=== PATIENT | male | born 1940 | race American Indian/Alaskan Native ===

== ENCOUNTER 2016-12-19 13:18 | Observation (INO) | payer MEDICARE ==
--- NOTE | 2016-12-19 14:36 | ED PDOC ---
Arrival/HPI - General Chief Complaint: Upper Extremity Problem/Injury Time Seen by Provider: 12/19/16 14:16 Historian: Patient - History of Present Illness Narrative History of Present Illness (Text): 12/19/16 14:16 Francisco Javier Davidson is a 76 year old male, whose past medical history includes cardiac stents and sarcoidosis, who presents to the emergency department complaining of intermittent arm pain for two weeks. Patient also reports that he experiences shortness of breath which is chronic. Patient's daughter states that patient has been more short of breath over the past several weeks than typical. Patient denies any trauma or any other complaints at this time. PMD: Dr. Green Time/Duration: < month Symptom Onset: Gradual Symptom Course: Intermittent Severity Level: Mild Activities at Onset: Light Context: Home Past Medical History - Provider Review Nursing Documentation Reviewed: Yes - Cardiac Hx Cardiac Disorders: Yes Hx Hypertension: Yes Hx Pacemaker: No - Pulmonary Hx Respiratory Disorders: Yes (sarcoidosis) Hx Chronic Obstructive Pulmonary Disease (COPD): Yes - Neurological Hx Neurological Disorder: No Hx Paralysis: No - HEENT Hx HEENT Disorder: No - Renal Hx Renal Disorder: No - Endocrine/Metabolic Hx Endocrine Disorders: No - Hematological/Oncological Hx Blood Disorders: No Hx Blood Transfusions: No Hx Blood Transfusion Reaction: No - Integumentary Hx Dermatological Disorder: No - Musculoskeletal/Rheumatological Hx Musculoskeletal Disorders: No - Gastrointestinal Hx Gastrointestinal Disorders: No - Genitourinary/Gynecological Hx Genitourinary Disorders: No - Psychiatric Hx Psychophysiologic Disorder: No Hx Anxiety: No Hx Emotional Abuse: No Hx Physical Abuse: No Hx Substance Use: No - Surgical History Hx Cardiac Catheterization: Yes Hx Coronary Stent: Yes - Anesthesia Hx Anesthesia Reactions: No Hx Malignant Hyperthermia: No - Suicidal Assessment Feels Threatened In Home Enviroment: No Family/Social History - Physician Review Nursing Documentation Reviewed: Yes Family/Social History: No Known Family HX Smoking Status: Never Smoked Hx Alcohol Use: No Hx Substance Use: No Hx Substance Use Treatment: No Allergies/Home Meds Allergies/Adverse Reactions: Allergies No Known Allergies Allergy (Verified 12/19/16 13:30) Home Medications: Home Meds Medication Instructions Recorded Confirmed Aspirin [Aspir 81] 81 mg PO QAM 03/02/12 12/19/16 Metoprolol Tartrate [Lopressor] 25 mg PO BID 09/02/16 09/05/17 Simvastatin 20 mg PO QAM 12/17/15 12/19/16 Benzonatate [Tessalon Perles] 100 mg PO TID 12/19/16 12/19/16 Omeprazole [Omeprazole] 20 mg PO DAILY 12/19/16 12/19/16 Review of Systems - Physician Review All systems were reviewed & negative as marked: Yes - Review of Systems Constitutional: absent: Fevers, Night Sweats Eyes: absent: Vision Changes ENT: absent: Hearing Changes Respiratory: SOB Cardiovascular: absent: Chest Pain Gastrointestinal: absent: Abdominal Pain Genitourinary Male: absent: Dysuria, Frequency Musculoskeletal: Other (arm pain) Skin: absent: Rash, Pruritis Neurological: absent: Headache, Dizziness Endocrine: absent: Diaphoresis Hemo/Lymphatic: absent: Adenopathy Psychiatric: absent: Depression Physical Exam - Physical Exam Narrative Physical Exam (Text): Head: Atraumatic. Normocephalic. Eyes: PERRL. EOMI. Conjunctivae are not pale. ENT: Mucous membranes are moist and intact. Oropharynx is clear and symmetric. Neck: Supple. Full ROM. No JVD. No lymphadenopathy. Cardiovascular: Regular rate. Regular rhythm. Systolic murmur. Distal pulses are 2+ and symmetric. Pulmonary/Chest: Slight diminished breath sounds in Left lung, otherwise good breath sounds bilaterally, no accessory muscle usage. Abdominal: Soft and non-distended. There is no tenderness. No rebound, guarding, or rigidity. No organomegaly. Good bowel sounds. Back: No CVA tenderness. Extremities: No edema or erythema to left upper extremity. Neurovascular intact. Full range of motion in all extremities. No palpable elbow or wrist pain. Strong radial pulse. NV intact in upper extremity. No edema. No calf tenderness. Skin: Skin is warm and dry. No petechiae. No purpura. Neurological: Alert, awake, and oriented to person, place, time, and situation. Normal speech. Motor and sensory exam intact. Psychiatric: Good eye contact. Normal interaction, affect, and behavior. Vital Signs Reviewed: Yes Vital Signs Temp Pulse Resp BP Pulse Ox 12/19/16 17:42 63 145/90 12/19/16 13:35 97.5 F L 61 18 163/90 H 97 Blood Pressure: Hypertensive Pulse: Regular Respiratory Rate: Normal Appearance: Positive for: Well-Appearing, Non-Toxic, Comfortable Pain Distress: None Mental Status: Positive for: Alert and Oriented X 3 Medical Decision Making ED Course and Treatment: 12/19/16 14:16 Impression: 76 year old male complaining of intermittent arm pain for 2 weeks, also shortness of breath with exertion. Differential Diagnosis included but are not limited to: CAD vs. Sarcoidosis vs. Pneumonia vs. COPD Plan: -- EKG -- Chest X-ray -- Blood Culture -- Urine Cutlure and Urinalysis -- Labs -- Reassess and disposition Prior Visits: Notes and results from previous visits were reviewed. Patient last seen in the ED on 03/02/12 for multiple episodes of epistaxis that day. Patient was discharged home. Progress Notes: Patient's history is supplemented by family at bedside. The patient states he "has shortness of breath for some time". Family states that he has been coughing with shortness of breath for several days, noticeable with any exertion. He has prior history of CAD with cardiac stents. CXR ? hilar fullness, but no obvious CHF or infiltrate. Radiology interpretation reviewed. Initial EKG and card isos unremarkable. Patient currently is pain free, no focal neuro deficits. Patient's case discussed with Dr. Gipson, accepts patient to her service covering for Dr. Green. - Lab Interpretations Lab Results: 12/19/16 14:40 12/19/16 14:40 Lab Results 12/19/16 14:40: Sodium 140, Potassium 4.4, Chloride 99, Carbon Dioxide 30, Anion Gap 15, BUN 15, Creatinine 0.9, Est GFR ( Amer) > 60, Est GFR (Non- Af Amer) > 60, Random Glucose 87, Calcium 9.6, Total Bilirubin 0.8, AST 51, ALT 31, Alkaline Phosphatase 86, Lactate Dehydrogenase 557, Total Creatine Kinase 326 H, CK-MB (CK-2) 4.3 H, CK-MB (CK-2) % Cancelled, Troponin I < 0.01, NT-Pro- B Natriuret Pep 128, Total Protein 8.2, Albumin 4.3, Globulin 3.9, Albumin/ Globulin Ratio 1.1 12/19/16 14:40: PT 10.7, INR 0.99, APTT 34.3 H 12/19/16 14:40: WBC 5.2, RBC 4.63, Hgb 14.5, Hct 42.5, MCV 91.8, MCH 31.3, MCHC 34.1, RDW 12.5, Plt Count 184, MPV 9.8, Gran % 60.2, Lymph % (Auto) 28.9, [place] % (Auto) 7.1 H, Eos % (Auto) 3.6, Baso % (Auto) 0.2, Gran # 3.14, Lymph # 1.5, [place] # 0.4, Eos # 0.2, Baso # 0.01 I have reviewed the lab results: Yes - RAD Interpretation Radiology Orders: 12/19/16 14:31 CHEST PORTABLE [RAD] Stat - Medication Orders Current Medication Orders: Aspirin (Ecotrin) 81 mg PO QAM TIFF Atorvastatin Calcium (Lipitor) 10 mg PO DIN TIFF Metoprolol Tartrate (Lopressor) 25 mg PO BID TIFF Pantoprazole Sodium (Protonix Ec Tab) 20 mg PO ACB TIFF Discontinued Medications Albuterol/Ipratropium (Duoneb 3 Mg/0.5 Mg (3 Ml) Ud) 3 ml IH STAT STA Stop: 12/19/16 16:53 Last Admin: 12/19/16 17:43 Dose: 3 ml Aspirin (Aspirin Chewable) 81 mg PO STAT STA Stop: 12/19/16 16:50 Last Admin: 12/19/16 17:43 Dose: 81 mg Metoprolol Tartrate (Lopressor) 25 mg PO STAT STA Stop: 12/19/16 17:01 Last Admin: 12/19/16 17:42 Dose: 25 mg - Scribe Statement The provider has reviewed the documentation as recorded by the Razia Walsh Provider Scribe Attestation: All medical record entries made by the Beckieibsuraj were at my direction and personally dictated by me. I have reviewed the chart and agree that the record accurately reflects my personal performance of the history, physical exam, medical decision making, and the department course for this patient. I have also personally directed, reviewed, and agree with the discharge instructions and disposition. Disposition/Present on Arrival - Present on Arrival Any Indicators Present on Arrival: No History of DVT/PE: No History of Uncontrolled Diabetes: No Urinary Catheter: No History of Decub. Ulcer: No History Surgical Site Infection Following: None - Disposition Have Diagnosis and Disposition been Completed?: Yes Diagnosis: Chest pain, Dyspnea Disposition: HOSPITALIZED Disposition Time: 15:20 Patient Plan: Admission, Telemetry Condition: FAIR
[2016-12-19 15:05] LABS: BASO # 0.01 K/mm3 (0.0-2.0); BASO % 0.2 % (0.0-3.0); EOS # 0.2 (0.0-0.7); EOS % 3.6 % (1.5-5.0); GRAN # 3.14 (1.4-6.5); GRAN % 60.2 % (50.0-68.0); HEMATOCRIT 42.5 % (42.0-52.0); LYMPH # 1.5 (1.2-3.4); LYMPH % 28.9 % (22.0-35.0); MEAN CELL VOLUME 91.8 fl (80.0-105.0); MEAN CORPUSCULAR HEMOGLOBIN 31.3 pg (25.0-35.0); MEAN CORPUSCULAR HGB CONC 34.1 g/dl (31.0-37.0); MEAN PLATELET VOLUME 9.8 fl (7.0-11.0); MONO # 0.4 (0.1-0.6); MONO % 7.1 % (1.0-6.0); RED CELL DISTRIBUTION WIDTH 12.5 % (11.5-14.5); WHITE BLOOD COUNT 5.2 10^3/ul (4.5-11.0)
[2016-12-19 15:18] LABS: INR 0.99 (0.93-1.08); PARTIAL THROMBOPLASTIN TIME 34.3 Seconds (23.7-30.8)
[2016-12-19 15:21] LABS: ALB/GLOB RATIO 1.1 (1.1-1.8); ALKALINE PHOSPHATASE 86 U/L (38-126); ALT/SGPT 31 U/L (7-56); AST/SGOT 51 U/L (17-59); BILIRUBIN,TOTAL 0.8 mg/dL (0.2-1.3); BLOOD UREA NITROGEN 15 mg/dL (7-21); CALCIUM 9.6 mg/dL (8.4-10.5); CARBON DIOXIDE 30 mmol/L (21-33); CHLORIDE 99 mmol/L (98-107); GFR AFRICAN-AMERICAN > 60; GLUCOSE,RANDOM 87 mg/dL (70-110); POTASSIUM 4.4 mmol/L (3.6-5.0); SODIUM 140 mmol/L (132-148); TOTAL PROTEIN 8.2 g/dL (5.8-8.3)
--- NOTE | 2016-12-19 15:30 | RAD ---
HISTORY: sob COMPARISON: No prior. FINDINGS: LUNGS: No active pulmonary disease. There is eventration of the diaphragms bilaterally PLEURA: No significant pleural effusion identified, no pneumothorax apparent. CARDIOVASCULAR: Normal. OSSEOUS STRUCTURES: No significant abnormalities. VISUALIZED UPPER ABDOMEN: Normal. OTHER FINDINGS: None. IMPRESSION: No active disease.
[2016-12-19 15:34] LABS: TROPONIN I < 0.01 ng/mL
[2016-12-19] MEDS ORDERED: Albuterol-Ipratrop 3 mg / 0.5 (3 ml) UD IH STA (16:52)
[2016-12-19 20:55] VITALS: BMI 28.3
--- NOTE | 2016-12-19 23:14 | CARD ---
APPROVED REPORT EKG Measurement Heart [id number] <Conclusion> Sinus rhythm with premature atrial complexes Otherwise normal ECG
--- NOTE | 2016-12-20 03:06 | CP.PCM.CON ---
<LuanaCharli - Last Filed: 12/20/16 03:10> History of Present Illness - History of Present Illness History of Present Illness: Neurology Consult Note for Dr. Mayorga Service Consulted for: Left arm numbness/tingling HPI: This is a 76 yo AA M with PMH of CAD s/p stenting, HTN, COPD, and Sarcoidosis who presents to [facility] with complaint of 2 weeks of intermittent L arm pain/numbness and intermittent dizziness. As per pt, he had numbness in the Left arm which self-resolved prior to admission. Pt admits to leaning on the posterior portion of his L arm regularly when watching TV. Describes the numbness/tingling as passing from upper forearm, along posterior elbow, and into dorsum of hand. Currently retains full ROM in all extremities, including affect LUE. Denies room spinning, chest pain, shortness of breath, other paresthesias, nausea/emesis, fevers/chills, acute vision changes. All other ROS in 12-point system review negative. PMH: As above PSH: Cardiac cath with stenting SHx: denies alcohol/tobacco/illicits PMD: Dr. Gipson Review of Systems - Review of Systems All systems: reviewed and no additional remarkable complaints except (as per HPI ) Past Patient History - Past Social History Smoking Status: Former Smoker - CARDIAC Hx Cardiac Disorders: Yes Hx Hypertension: Yes - PULMONARY Hx Respiratory Disorders: Yes (sarcoidosis) Hx Chronic Obstructive Pulmonary Disease (COPD): Yes - NEUROLOGICAL Hx Neurological Disorder: No - HEENT Hx HEENT Problems: No - RENAL Hx Chronic Kidney Disease: No - ENDOCRINE/METABOLIC Hx Endocrine Disorders: No - HEMATOLOGICAL/ONCOLOGICAL Hx Blood Disorders: No - INTEGUMENTARY Hx Dermatological Problems: No - MUSCULOSKELETAL/RHEUMATOLOGICAL Hx Musculoskeletal Disorders: No Hx Falls: No - GASTROINTESTINAL Hx Gastrointestinal Disorders: No - GENITOURINARY/GYNECOLOGICAL Hx Genitourinary Disorders: No - PSYCHIATRIC Hx Psychophysiologic Disorder: No Hx Substance Use: No - SURGICAL HISTORY Hx Surgeries: Yes (cardiac cath 1996, 2006) Hx Cardiac Catheterization: Yes (1996, 2006) Hx Coronary Stent: Yes - ANESTHESIA Hx Anesthesia Reactions: No Hx Malignant Hyperthermia: No Meds Allergies/Adverse Reactions: Allergies Allergy/AdvReac Type Severity Reaction Status Date / Time No Known Allergies Allergy Verified 12/19/16 13:30 - Medications Medications: Current Medications Aspirin (Ecotrin) 81 mg PO QAM TIFF Atorvastatin Calcium (Lipitor) 10 mg PO DIN [facility] Metoprolol Tartrate (Lopressor) 25 mg PO BID [facility] Last Admin: 12/19/16 19:43 Dose: 25 mg Pantoprazole Sodium (Protonix Ec Tab) 20 mg PO ACB [facility] Physical Exam - Constitutional Appears: Non-toxic, No Acute Distress - Head Exam Head Exam: ATRAUMATIC, NORMAL INSPECTION, NORMOCEPHALIC - Eye Exam Eye Exam: Normal appearance. absent: Conjunctival injection, Scleral icterus Pupil Exam: absent: Irregular, Unequal Additional comments: no dizziness elicited from tracking staff within room in ED - ENT Exam ENT Exam: Mucous Membranes Moist - Neck Exam Neck exam: Positive for: Full Rom - Respiratory Exam Respiratory Exam: Clear to Auscultation Bilateral, NORMAL BREATHING PATTERN. absent: Accessory Muscle Use, Chest Wall Tenderness, Decreased Breath Sounds, Rales, Rhonchi, Wheezes - Cardiovascular Exam Cardiovascular Exam: REGULAR RHYTHM, RRR, +S1, +S2. absent: Bradycardia, Tachycardia, Irregular Rhythm, JVD, +S4 - GI/Abdominal Exam GI & Abdominal Exam: Normal Bowel Sounds, Soft. absent: Diminished Bowel Sounds , Hyperactive Bowel Sounds, Hypoactive Bowel Sounds, Tenderness - Extremities Exam Extremities exam: Positive for: normal inspection. Negative for: pedal edema Additional comments: moving all extremities spontaneously, motor grossly intact - Neurological Exam Additional comments: awake and alert, following all commands, moving all extremities spontaneously - Psychiatric Exam Psychiatric exam: Normal Affect, Normal Mood - Skin Skin Exam: Dry, Intact, Normal Color, Warm Results - Vital Signs Recent Vital Signs: Last Vital Signs Temp 98.2 F 12/20/16 00:00 Pulse 55 L 12/20/16 00:00 Resp 20 12/20/16 00:00 BP 139/84 12/20/16 00:00 Pulse Ox 98 12/20/16 00:00 - Labs Result Diagrams: 12/19/16 14:40 12/19/16 14:40 Assessment & Plan - Assessment and Plan (Free Text) Assessment: This is a 76 yo AA M with PMH of CAD s/p stenting, HTN, COPD, and Sarcoidosis who presents to [facility] with complaint of 2 weeks of intermittent L arm pain/ numbness x2 weeks. 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 Despite the compression neuropathy , he motor and sensory function are grossly intact in his LUE and generally. Elbow site is not acutely tender on exam, so unlikely epicondylitis. May be component of HTN urgency behind dizziness as patient's BP since arrival has increased to systolic 160's. Plan: 1) Avoid resting on posterior elbow, especially on hard surface; avoid any direct compression of ulnar nerve pathway along posterior arm 2) Continue medical management of HTN, avoid abrupt decreases in BP to prevent watershed infarcts 3) PT/OT for L-arm Patient seen, reviewed, and discussed with attending, Dr. Mayorga. Please reconsult if patient experiences acute change in condition. <Carlos Eduardo Mayorga - Last Filed: 12/20/16 10:21> Meds - Medications Medications: Current Medications Aspirin (Ecotrin) 81 mg PO QAM [facility] Last Admin: 12/20/16 09:07 Dose: 81 mg Atorvastatin Calcium (Lipitor) 10 mg PO DIN TIFF Metoprolol Tartrate (Lopressor) 25 mg PO BID [facility] Last Admin: 12/20/16 09:07 Dose: 25 mg Pantoprazole Sodium (Protonix Ec Tab) 20 mg PO ACB [facility] Last Admin: 12/20/16 08:02 Dose: 20 mg Results - Vital Signs Recent Vital Signs: Last Vital Signs Temp 97.7 F 12/20/16 08:09 Pulse 62 12/20/16 09:07 Resp 20 12/20/16 08:09 BP 141/81 12/20/16 09:07 Pulse Ox 96 12/20/16 08:09 - Labs Result Diagrams: 12/20/16 05:20 12/20/16 05:20 Labs: Laboratory Results - last 24 hr 12/20/16 12/20/16 12/20/16 05:20 05:20 10:00 WBC 4.7 RBC 4.46 Hgb 13.8 L Hct 40.9 L MCV 91.7 MCH 30.9 MCHC 33.7 RDW 12.7 Plt Count 170 MPV 9.3 Gran % 57.8 Lymph % (Auto) 26.8 [place] % (Auto) 9.9 H Eos % (Auto) 5.1 H Baso % (Auto) 0.4 Gran # 2.74 Lymph # 1.3 [place] # 0.5 Eos # 0.2 Baso # 0.02 Sodium 139 Potassium 4.1 Chloride 101 Carbon Dioxide 29 Anion Gap 13 BUN 16 Creatinine 0.9 Est GFR ( Amer) > 60 Est GFR (Non-Af Amer) > 60 Random Glucose 102 Calcium 9.0 Lactate Dehydrogenase 446 Total Creatine Kinase 269 H CK-MB (CK-2) 2.9 CK-MB (CK-2) % Cancelled Troponin I < 0.01 Urine Color Yellow Urine Appearance Clear Urine pH 6.0 Ur Specific [place] 1.010 Urine Protein Negative Urine Glucose (UA) Negative Urine Ketones Negative Urine Blood Negative Urine Nitrate Negative Urine Bilirubin Negative Urine Urobilinogen 0.2 Ur Leukocyte Esterase Negative Attending/Attestation - Attestation I have personally seen and examined this patient.: Yes I have fully participated in the care of the patient.: Yes I have reviewed all pertinent clinical information: Yes Notes (Text): 12/20/16 10:21 REFLEXES WERE NORMAL ON NEURO EXAM. WILL SEE IN OFFICE FOR AN EMG. LILIAN BROWN
--- NOTE | 2016-12-20 03:16 | HP ---
DATE OF EVALUATION: 12/19/2016 HISTORY OF PRESENT ILLNESS: Mr. Davidson is a 76-year-old male presented to ED with left arm tingling and pain for a past few days. He also has heaviness on the chest. No shortness of breath. The tingling resolved while in ED. No weakness on the left side of the body. He has history of coronary artery disease. He has cardiac stents placed twice. He also has history of sarcoidosis. He has history of hypertension. Blood pressure has been stable. Sarcoidosis, no active issues, COPD, no exacerbation recent. PAST MEDICAL HISTORY: Cardiac stent and cardiac catheterization. SOCIAL HISTORY: Lives at home. PERSONAL HISTORY: Never smoked. No history of alcohol abuse. ALLERGIES: NO KNOWN DRUG ALLERGIES. HOME MEDICATIONS: Aspirin 81 mg daily, metoprolol 25 mg by mouth two times a day, Lipitor 20 mg daily, and omeprazole 20 mg daily. REVIEW OF SYSTEMS: As per HPI. A 12-point review of systems reviewed and negative. PHYSICAL EXAMINATION GENERAL: Comfortable in bed, in no acute distress. VITAL SIGNS: Temperature 97.5, heart rate 60 per minute, respiratory rate 18 per minute, blood pressure 160/90, pulse oximetry is 97% on room air. HEENT: Normal. NECK: Supple. No lymphadenopathy. CHEST: Air entry present equal bilaterally. No added sounds. CARDIOVASCULAR: S1 and S2 normal. No murmur or gallop. ABDOMEN: Soft and nontender. No hepatosplenomegaly. EXTREMITIES: No edema. NEUROLOGIC: Alert and oriented x3. Cranial nerves intact. Spine nontender. No focal sensitivity motor deficit. LABORATORY DATA: White count 5.2, hemoglobin 14.5, hematocrit 42.5, platelet 184. Sodium 140, potassium 4.4, BUN 15, and creatinine 0.9. Cardiac enzyme creatine kinase 326. INR is 0.99. Troponin negative 0.01. Chest x-ray, no infiltrate. EKG, no ST-T changes. ASSESSMENT: Coronary artery disease, left arm pain, left arm tingling. No history of sarcoidosis, chronic obstructive pulmonary disease, mild coagulopathy, elevated PTT 34.3. PLAN: Admit telemetry and we will do serial cardiac enzyme. Cardiac consultation with Dr. Maloney requested. He might need a cardiac stress test. We will continue beta-d[place] 25 mg by mouth two times a day, metoprolol. Continue Lipitor 10 mg daily, aspirin 81 mg daily, Protonix 20 mg by mouth daily. Urology consultation Dr. Mayorga requested for tingling on the left arm, unlikely stroke might be cervical. Heart healthy diet. Urine culture and blood culture ordered. Sarah Gipson MD
[2016-12-20 06:16] LABS: BASO # 0.02 K/mm3 (0.0-2.0); BASO % 0.4 % (0.0-3.0); EOS # 0.2 (0.0-0.7); EOS % 5.1 % (1.5-5.0); GRAN # 2.74 (1.4-6.5); GRAN % 57.8 % (50.0-68.0); HEMATOCRIT 40.9 % (42.0-52.0); LYMPH # 1.3 (1.2-3.4); LYMPH % 26.8 % (22.0-35.0); MEAN CELL VOLUME 91.7 fl (80.0-105.0); MEAN CORPUSCULAR HEMOGLOBIN 30.9 pg (25.0-35.0); MEAN CORPUSCULAR HGB CONC 33.7 g/dl (31.0-37.0); MEAN PLATELET VOLUME 9.3 fl (7.0-11.0); MONO # 0.5 (0.1-0.6); MONO % 9.9 % (1.0-6.0); RED CELL DISTRIBUTION WIDTH 12.7 % (11.5-14.5); WHITE BLOOD COUNT 4.7 10^3/ul (4.5-11.0)
[2016-12-20 06:31] LABS: BLOOD UREA NITROGEN 16 mg/dL (7-21); CARBON DIOXIDE 29 mmol/L (21-33); CHLORIDE 101 mmol/L (98-107); GFR AFRICAN-AMERICAN > 60; GLUCOSE,RANDOM 102 mg/dL (70-110); POTASSIUM 4.1 mmol/L (3.6-5.0); SODIUM 139 mmol/L (132-148)
[2016-12-20 06:58] LABS: TROPONIN I < 0.01 ng/mL
[2016-12-20] MEDS ORDERED: Pantoprazole 20 mg EC Tab PO SCH (07:30)
[2016-12-20 10:12] LABS: URINE BILIRUBIN NEGATIVE (NEGATIVE); URINE BLOOD NEGATIVE (NEGATIVE); URINE GLUCOSE (UA) NEGATIVE (NEGATIVE); URINE KETONE NEGATIVE (NEGATIVE); URINE LEUKOCYTE ESTERASE NEGATIVE Leu/uL (NEGATIVE); URINE PROTEIN NEGATIVE mg/dL (<30 mg/dL); URINE UROBILINOGEN 0.2 E.U./dL (<1 E.U./dL)
[2016-12-20 10:15] LABS: URINE APPEARANCE CLEAR (CLEAR); URINE COLOR YELLOW (YELLOW)
--- NOTE | 2016-12-20 14:33 | CON ---
DATE: 12/20/2016 HISTORY OF PRESENT ILLNESS: The patient is a 76-year-old male who presents with left arm numbness and exertional dyspnea. The patient's past medical history includes hypertension. He has had sarcoidosis for many years and has been relatively stable. He also suffers from COPD. His cardiac history includes three angioplasties over the past 20 years. His last one was 3 years ago at [facility]. He denies angina. No diabetes mellitus noted. SOCIAL HISTORY: The patient does not smoke. REVIEW OF SYSTEMS: A 14-point review of systems is reviewed in detail. No other cardiac symptomatology is noted. PHYSICAL EXAMINATION VITAL SIGNS: Blood pressure is 141/81 and the heart rate is in the 50s. NECK: Negative JVD. LUNGS: Without rales. HEART: Reveals S1 and S2. EXTREMITIES: Without edema. LABORATORY DATA: Include an EKG that shows no acute changes. Troponins are negative. IMPRESSION 1. Atypical chest discomfort. 2. No evidence for acute coronary syndrome. 3. History of coronary artery disease. 4. History of multiple percutaneous transluminal coronary angioplasties in the past. 5. History of sarcoidosis. 6. Hypertension. PLAN: Given these findings, the patient can be discharged from a cardiac perspective. However, given his history of multivessel CAD, the patient should undergo an outpatient stress test which I will arrange for and which the patient is agreeable. From a cardiac perspective, the patient can be discharged. Epi Maloney MD
[2016-12-20 16:15] VITALS: BP 147/88; PULSE 66; RESP 22; TEMP 98.2; O2SAT 99
--- NOTE | 2016-12-20 23:47 | DS ---
DATE OF DISCHARGE: 12/20/2016 DISCHARGE DIAGNOSES: 1. Left arm pain. 2. Coronary artery disease. 3. Sarcoidosis. HOSPITAL COURSE: The patient was admitted with left-sided chest pain and tingling in the left arm. He was monitored on telemonitoring for 24 hours. Cardiac enzymes were negative [address] Maloney evaluated. Cardiac stress test is scheduled for this week. Neurology evaluated for tingling on the left arm. He is being discharged in stable condition. PHYSICAL EXAMINATION ON DISCHARGE: GENERAL: Comfortable in bed, in no acute distress. VITAL SIGNS: Temperature 98.7, heart rate 70 per minute, respiratory rate 18 per minute, and oxygen saturation 98% on room air. HEENT: Normal. CHEST: Air entry present equal. Bilaterally no added sound. CARDIOVASCULAR: Within normal limits. ABDOMEN: Soft and nontender. No hepatosplenomegaly. SKIN: No petechiae. No rash. CONDITION: On discharge, stable. DIET: Heart healthy diet. Followup with Dr. Maloney. Followup with Dr. Baldwin. DISCHARGE MEDICATIONS: Continue home meds. Lipitor 10 mg daily, metoprolol 25 mg p.o. b.i.d., Protonix 20 mg daily, and aspirin 81 mg daily. Time spent in preparing discharge and coordinating care 45 minutes. Sarah Gipson MD
== END 2016-12-20 19:35 | disposition home or self-care (01) ==
LOC: ED 13:18 → ERH 18:04 → 3RNO 19:03
PROVIDERS: ADMIT Internal Medicine Medical Oncology; ATTEND Internal Medicine Medical Oncology
DX: R07.89 Other chest pain (principal); M79.602 Pain in left arm; I25.10 Atherosclerotic heart disease of native coronary artery without angina pectoris; D86.9 Sarcoidosis, unspecified; G58.9 Mononeuropathy, unspecified; I10 Essential (primary) hypertension; J44.9 Chronic obstructive pulmonary disease, unspecified; Z79.82 Long term (current) use of aspirin; Z79.899 Other long term (current) drug therapy; Z87.891 Personal history of nicotine dependence; Z95.5 Presence of coronary angioplasty implant and graft; D68.9 Coagulation defect, unspecified
CPT/HCPCS: 36415; 71010; 80048; 80053; 81003; 82550; 82553; 83615; 83880; 84484; 85025; 85610; 85730; 87040; 87086; 93005; 99285; G0378

== ENCOUNTER 2016-12-29 06:09 | Day surgery (SDC) | payer MEDICARE ==
[2016-12-26 11:13] VITALS: BMI 27.4
[2016-12-29 07:07] LABS: BASO # 0.02 K/mm3 (0.0-2.0); BASO % 0.3 % (0.0-3.0); EOS # 0.2 (0.0-0.7); EOS % 3.7 % (1.5-5.0); GRAN # 3.42 (1.4-6.5); GRAN % 57.9 % (50.0-68.0); HEMATOCRIT 41.5 % (42.0-52.0); LYMPH # 1.8 (1.2-3.4); LYMPH % 29.6 % (22.0-35.0); MEAN CORPUSCULAR HEMOGLOBIN 30.9 pg (25.0-35.0); MEAN PLATELET VOLUME 9.8 fl (7.0-11.0); MONO # 0.5 (0.1-0.6); MONO % 8.5 % (1.0-6.0); RED CELL DISTRIBUTION WIDTH 12.3 % (11.5-14.5); WHITE BLOOD COUNT 5.9 10^3/ul (4.5-11.0)
[2016-12-29 07:18] LABS: BLOOD UREA NITROGEN 16 mg/dL (7-21); CALCIUM 9.4 mg/dL (8.4-10.5); CARBON DIOXIDE 32 mmol/L (21-33); CHLORIDE 103 mmol/L (98-107); CHOLESTEROL 144 mg/dL (130-200); GFR AFRICAN-AMERICAN > 60; GLUCOSE,RANDOM 97 mg/dL (70-110); PARTIAL THROMBOPLASTIN TIME 32.9 Seconds (23.7-30.8); SODIUM 143 mmol/L (132-148)
[2016-12-29] MEDS ORDERED: Lidocaine 2% Inj (20ml) ONE (08:30)
[2016-12-29] MEDS ORDERED: Phenylephrine 10 mg/ml Inj ONE (08:31)
[2016-12-29] MEDS ORDERED: Iohexol 350mgl/ml 50 ML ONE (08:31)
[2016-12-29] MEDS ORDERED: Iohexol 350 MG/100 ML VIAL ONE (08:31)
[2016-12-29] MEDS ORDERED: Midazolam 2 MG/2 ML VIAL ONE ×2 (08:42→09:03)
[2016-12-29] MEDS ORDERED: Adenosine 90 mg/30mL IV ONE (09:13)
[2016-12-29] MEDS ORDERED: Eptifibatide 20 mg/10mL Inj IVP ONE (09:36)
[2016-12-29] MEDS ORDERED: Sodium Chloride 0.9% 1,000 ML IV SCH (10:00)
[2016-12-29] MEDS: Metoprolol Succinate 25 mg XL Tab PO SCH (12:52)
--- NOTE | 2016-12-29 16:26 | CARD ---
APPROVED REPORT EKG Measurement Heart [id number] <Conclusion> Marked sinus bradycardia
--- NOTE | 2016-12-30 02:12 | HP ---
HISTORY OF PRESENT ILLNESS: The patient is a 76 years old black male known to me from office practice. He was having chest pain, so he went to see Dr. Maloney who did stress test on 12/22/2016 that was found to be abnormal, so he was brought to [facility] for elective cardiac catheterization and being placed on observation overnight. The patient is also having intermittent chest pain, going on for sometime, so he went to see Dr. Maloney who did the above-mentioned workup. PAST MEDICAL HISTORY: He has significant past medical history of hypertension, history of sarcoidosis. ALLERGIES: HE IS NOT ALLERGIC TO ANY MEDICATION. MEDICATIONS AT HOME: He is on aspirin 81 mg daily, simvastatin 20 mg daily, omeprazole 20 mg daily, metoprolol 25 twice a day, Plavix 75 daily. SOCIAL HISTORY: He was a heavy past smoker. He still socially drinks. Lives with his . REVIEW OF SYSTEMS: Unremarkable at this point. PHYSICAL EXAMINATION: GENERAL: He is awake and alert, communicative. VITAL SIGNS: He is afebrile. Pulse 51, respirations 18, blood pressure 160/87. LUNGS: Bilateral fair airflow. No rhonchi or crackles. HEART: S1, S2 audible. ABDOMEN: Soft, nontender. No rebound, no guarding. NEUROLOGIC: The patient is awake and alert, able to communicate. LABORATORY EXAM: WBCs 5.9, hemoglobin 14, hematocrit 41.5, platelets 190. PT 10.8, INR 1.0. Chemistry: Sodium 143, potassium 4.0, chloride 103, CO2 of 32, BUN 16, creatinine 1.0, blood sugar of 97. LFTs are within normal limits. ASSESSMENT AND PLAN: 1. Abnormal stress test, status post cardiac catheterization. Had right coronary artery angioplasty done. 2. Hypertension. 3. Hyperlipidemia. 4. History of sarcoidosis. Plan is add metoprolol and soon start him on losartan. Monitor his blood pressure as well as CBC and CMP. Eddie Green MD
[2016-12-30 07:06] VITALS: O2SAT 97
[2016-12-30] MEDS ORDERED: Naproxen 550 mg Tab PO ONE (07:08)
[2016-12-30 07:17] LABS: BLOOD UREA NITROGEN 15 mg/dL (7-21); CALCIUM 8.9 mg/dL (8.4-10.5); CARBON DIOXIDE 28 mmol/L (21-33); CHLORIDE 102 mmol/L (98-107); GFR AFRICAN-AMERICAN > 60; GLUCOSE,RANDOM 90 mg/dL (70-110); POTASSIUM 3.9 mmol/L (3.6-5.0); SODIUM 139 mmol/L (132-148)
[2016-12-30] MEDS: Metoprolol Succinate 25 mg XL Tab PO SCH (08:10)
[2016-12-30 08:13] LABS: BASO # 0.02 K/mm3 (0.0-2.0); BASO % 0.3 % (0.0-3.0); EOS # 0.2 (0.0-0.7); GRAN # 3.66 (1.4-6.5); GRAN % 63.9 % (50.0-68.0); HEMATOCRIT 39.7 % (42.0-52.0); LYMPH # 1.2 (1.2-3.4); LYMPH % 20.8 % (22.0-35.0); MEAN CELL VOLUME 90.6 fl (80.0-105.0); MEAN CORPUSCULAR HEMOGLOBIN 30.1 pg (25.0-35.0); MEAN CORPUSCULAR HGB CONC 33.2 g/dl (31.0-37.0); MEAN PLATELET VOLUME 9.8 fl (7.0-11.0); MONO # 0.7 (0.1-0.6); RED CELL DISTRIBUTION WIDTH 12.3 % (11.5-14.5); WHITE BLOOD COUNT 5.7 10^3/ul (4.5-11.0)
--- NOTE | 2016-12-30 10:57 | PN ---
DATE: 12/30/2016 CARDIOLOGY FOLLOWUP SUBJECTIVE: The patient is chest pain free. He is ambulating without symptoms. He had transient numbness in the right forearm which has now resolved. OBJECTIVE: VITAL SIGNS: Blood pressure 143/91, heart rate in the 60s. NECK: Negative JVD. LUNGS: Without rales. HEART: S1, S2. EXTREMITIES: Without edema. The right groin site is stable. LABORATORY DATA: Hemoglobin is 13.2. Chemistries are within normal limits. EKG shows no changes. IMPRESSION: 1. Status post percutaneous transluminal coronary angioplasty and stent of the right coronary artery. 2. Coronary artery disease. 3. Hypercholesterolemia. 4. History of multi vessel percutaneous transluminal coronary angioplasty in the past. Given these findings, the patient is stable for discharge. The patient will need to be on Effient instead of Plavix given the PRU results, which revealed the patient is a non-responder to Plavix. Prescription has been given to the patient's family. Epi Maloney MD
[2016-12-30 11:08] VITALS: BP 139/90
[2016-12-30 12:12] VITALS: PULSE 67; RESP 16; TEMP 97
--- NOTE | 2016-12-30 13:15 | CARD ---
APPROVED REPORT EKG Measurement Heart [id number] <Conclusion> Sinus bradycardia Otherwise normal ECG
--- NOTE | 2016-12-30 13:15 | CT ---
PROCEDURE: CT HEAD WITHOUT CONTRAST. 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 TECHNIQUE: Axial computed tomography images were obtained through the head/brain without intravenous contrast. Radiation dose: Total exam DLP = 725.84 mGy-cm. This CT exam was performed using one or more of the following dose reduction techniques: Automated exposure control, adjustment of the mA and/or kV according to patient size, and/or use of iterative reconstruction technique. FINDINGS: HEMORRHAGE: No acute parenchymal, subarachnoid or extra-axial hemorrhage. Hemorrhage. BRAIN: There appears to be some very minor chronic periventricular white matter ischemic changes. Minor vascular calcifications both carotid siphons Mild generalized volume loss. VENTRICLES: No obstructive hydrocephalus CALVARIUM: There are no acute calvarial fractures PARANASAL SINUSES: Unremarkable as visualized. No significant inflammatory changes. MASTOID AIR CELLS: Unremarkable as visualized. No inflammatory changes. OTHER FINDINGS: None. IMPRESSION: No acute intracranial hemorrhage. Mild chronic white matter ischemic changes. Mild generalized volume loss.
--- NOTE | 2016-12-31 09:14 | DS ---
HISTORY OF PRESENT ILLNESS: The patient is a 76-year-old seen and examined. I got call earlier this morning that he is having right arm tingling sensation, probably he slept wrong overnight. Seems like cervical radiculopathy. He was given Naprosyn with heating treatment with significant improvement. However, he had CT scan of the brain done to rule out TIA during evaluation to be discharged. PHYSICAL EXAMINATION: VITAL SIGNS: He is afebrile. Pulse 65, respirations 16, blood pressure 130/90. LUNGS: Bilateral fair airflow. No rhonchi or crackle. HEART: S1 and S2, audible. ABDOMEN: Soft and nontender. No rebound, no guarding. NEUROLOGIC: The patient is awake, alert, able to communicate, ambulatory. LABORATORY DATA: WBC was 5.7, hemoglobin 13, hematocrit 39.7, platelet 172. PT 10.8, INR 1.0. Chemistry; sodium 139, potassium 3.9, chloride 102, CO2 of 28, BUN 15, creatinine of 0.9, blood sugar of 90. ASSESSMENT: 1. Abnormal stress test. 2. Status post RCA angioplasty. 3. Hyperthyroidism. 4. Hypertension. PLAN: The patient is being discharged to home on metoprolol. He was given prescription of Effient and simvastatin 20 mg daily, aspirin 81 daily. The patient will follow with Dr. Maloney and myself in a week or 2. Eddie Green MD
--- NOTE | 2017-01-09 16:31 | CARDCATH ---
PROCEDURE DATE: 12/29/2016 HISTORY: The patient is a 76-year-old male who presents with an abnormal stress test. The patient's past medical history includes recurrent admissions for atypical chest pain as well as dyspnea. He has had multiple PTCA and stent at [facility] in the past. He has multiple cardiac risk factors and also suffers from sarcoidosis. Because of this, cardiac catheterization was recommended. PROCEDURE: Left heart catheterization with coronary arteriography, left ventriculogram as well as PTCA and stent of an RCA. The right femoral artery was cannulated with 6-Danish sheath. There were no complications. FINDINGS ON CATHETERIZATION: Revealed left main artery that revealed a 40% to 50% stenosis in the distal portion of the left main artery. The circumflex artery revealed diffuse atherosclerosis in calcification in the ostium of the circumflex artery. There is a 40% to 50% stenosis noted. In the midportion of the circumflex artery, there is a 50% stenosis noted. The LAD was visualized and found to have a patent stent in the proximal portion. The rest of the LAD revealed intimal irregularities. In the distal portion of the LAD, there is a 50% stenosis noted. The RCA was selectively cannulized and found to be a dominant vessel. The RCA was diffusely calcified with diffuse atherosclerosis. In the midportion of the RCA at the previously placed stent, there is a 80% stenosis noted. The length of the lesion is approximately 10 mm. Left ventriculogram was visualized in the MITTAL projection. In the MITTAL projection, wall motion is within normal limits. Estimated ejection fraction is 60%. The patient was started on intravenous Angiomax. Under fluoroscopic guide, the guiding catheter was placed in the ostium of the RCA. Using stiff wires as well as a GuideLiner, the lesion was predilated. A drug-eluting stent was able to be manipulated down into the calcified lesion and deployed. Repeat coronary arteriography revealed an excellent result with no residual stenosis in TYREL III flow. Angio-Seal was used to close the femoral artery site. The patient tolerated the procedure well. In summary, the procedure was successful PTCA and stent of the midportion of an RCA which represented in-stent restenosis. Cardiac catheterization revealed diffuse atherosclerosis throughout the coronary tree including the most critical being the circumflex artery that received a new stent. the rest of his anatomy revealed a 40% to 50% distal left main stenosis, patent stent in the proximal LAD, borderline critical lesions in the circumflex and LAD vessels. LV function is normal. Given these findings, the patient will need to remain on aspirin indefinitely and Plavix for least a year and undergo a strict cardiac risk reduction program. Epi Maloney MD
== END 2016-12-30 15:04 | disposition home or self-care (01) ==
LOC: CATH 06:09 → 2RSO 10:09 → CATH 12-30 15:04
PROVIDERS: ATTEND Internal Medicine
DX: I25.10 Atherosclerotic heart disease of native coronary artery without angina pectoris (principal); E78.00 Pure hypercholesterolemia, unspecified; E78.5 Hyperlipidemia, unspecified; I10 Essential (primary) hypertension; D86.9 Sarcoidosis, unspecified; E05.90 Thyrotoxicosis, unspecified without thyrotoxic crisis or storm; Z79.82 Long term (current) use of aspirin; Z79.899 Other long term (current) drug therapy; Z87.891 Personal history of nicotine dependence; Z95.5 Presence of coronary angioplasty implant and graft; R94.39 Abnormal result of other cardiovascular function study; M54.12 Radiculopathy, cervical region
CPT/HCPCS: 36415 ×2; 70450; 80048 ×2; 80061; 85025 ×2; 85576; 85610; 85730; 86850; 86900; 93005 ×2; 93458; 93571; 99152; 99153; C1760; C1769 ×2; C1874; C1887 ×3; C2629; C9600; J0153; J0583; J1327; J1644; J2250; J3010; J7040 ×2; Q9967

== ENCOUNTER 2017-03-29 11:26 | Inpatient (IN) | payer MEDICARE ==
[2017-03-29 11:35] VITALS: BMI 28.4
[2017-03-29] MEDS ORDERED: Albuterol-Ipratrop 3 mg / 0.5 (3 ml) UD IH STA ×2 (11:48)
--- NOTE | 2017-03-29 11:54 | ED PDOC ---
Arrival/HPI - General Chief Complaint: Chest Pain Time Seen by Provider: 03/29/17 11:29 Historian: Patient - History of Present Illness Narrative History of Present Illness (Text): 03/29/17 11:48 A 76 year old male, whose past medical history includes stents, COPD and sarcoidosis, presents to the emergency department complaining of productive cough for the past 14 days. Patient reports his symptom is exacerbated when laying down. He notes pleuritic chest pain and dyspnea on exertion. Patient did receive a flu shot this year. Patient denies any fever, chills, nausea, vomiting , abdominal pain or any other complaints. Time/Duration: Other (14 days) Symptom Course: Unchanged Quality: Other Context: Home Past Medical History - Provider Review Nursing Documentation Reviewed: Yes - Infectious Disease Hx of Infectious Diseases: None - Cardiac Hx Cardiac Disorders: Yes Hx Hypertension: Yes Hx Pacemaker: No Other/Comment: Cardiac Stents x 4, 1996/2009/2016 - Pulmonary Hx Respiratory Disorders: Yes (sarcoidosis) Hx Chronic Obstructive Pulmonary Disease (COPD): Yes - Neurological Hx Neurological Disorder: No - HEENT Hx HEENT Disorder: No - Renal Hx Renal Disorder: No - Endocrine/Metabolic Hx Endocrine Disorders: No - Hematological/Oncological Hx Blood Disorders: No - Integumentary Hx Dermatological Disorder: No - Musculoskeletal/Rheumatological Hx Musculoskeletal Disorders: No Hx Falls: No - Gastrointestinal Hx Gastrointestinal Disorders: No - Genitourinary/Gynecological Hx Genitourinary Disorders: No - Psychiatric Hx Emotional Abuse: No Hx Physical Abuse: No Hx Substance Use: No - Surgical History Hx Cardiac Catheterization: Yes - Anesthesia Hx Anesthesia: No Hx Anesthesia Reactions: No Hx Malignant Hyperthermia: No - Suicidal Assessment Feels Threatened In Home Enviroment: No Family/Social History - Physician Review Nursing Documentation Reviewed: Yes Family/Social History: No Known Family HX Smoking Status: Never Smoked Hx Alcohol Use: Yes (social) Hx Substance Use: No Hx Substance Use Treatment: No Allergies/Home Meds Allergies/Adverse Reactions: Allergies No Known Allergies Allergy (Verified 12/19/16 13:30) Home Medications: Home Meds Medication Instructions Recorded Confirmed Aspirin [Aspir 81] 81 mg PO QAM 03/02/12 03/29/17 Metoprolol Tartrate [Lopressor] 25 mg PO BID 12/17/15 03/29/17 Simvastatin 20 mg PO QAM 12/17/15 03/29/17 Omeprazole 20 mg PO DAILY 12/19/16 03/29/17 Prasugrel [Effient] 10 mg PO DAILY 12/30/16 03/29/17 Fluticasone/Vilanterol [Breo 200 mcg INH PRN PRN 03/29/17 03/29/17 Ellipta 200-25 Mcg INH] Montelukast [Singulair] 10 mg PO DAILY 03/29/17 03/29/17 Tamsulosin [Flomax] 0.4 mg PO DAILY 03/29/17 03/29/17 Review of Systems - Physician Review All systems were reviewed & negative as marked: Yes - Review of Systems Constitutional: absent: Fevers, Night Sweats Respiratory: Cough, Sputum Cardiovascular: Chest Pain (pleuritic), CASTILLO Gastrointestinal: absent: Abdominal Pain, Nausea, Vomiting Physical Exam Vital Signs Reviewed: Yes Vital Signs Temp Pulse Resp BP Pulse Ox 03/29/17 16:00 95 H 18 147/95 H 93 L 03/29/17 14:00 90 18 147/86 94 L 03/29/17 11:34 98.6 F 82 20 151/95 H 94 L Temperature: Afebrile Blood Pressure: Hypertensive Pulse: Regular Respiratory Rate: Normal Appearance: Positive for: Well-Appearing, Non-Toxic, Comfortable Pain Distress: None Mental Status: Positive for: Alert and Oriented X 3 - Systems Exam Head: Present: Atraumatic, Normocephalic Pupils: Present: PERRL Extroacular Muscles: Present: EOMI Conjunctiva: Present: Normal Mouth: Present: Moist Mucous Membranes Neck: Present: Normal Range of Motion Respiratory/Chest: Present: Wheezes (bilaterally), Rhonchi (bilaterally). No: Respiratory Distress, Accessory Muscle Use Cardiovascular: Present: Regular Rate and Rhythm, Normal S1, S2. No: Murmurs Abdomen: Present: Normal Bowel Sounds. No: Tenderness, Distention, Peritoneal Signs Back: Present: Normal Inspection Upper Extremity: Present: Normal Inspection. No: Cyanosis, Edema Lower Extremity: Present: Normal Inspection. No: Edema Neurological: Present: GCS=15, CN II-XII Intact, Speech Normal Skin: Present: Warm, Dry, Normal Color. No: Rashes Psychiatric: Present: Alert, Oriented x 3, Normal Insight, Normal Concentration Medical Decision Making ED Course and Treatment: 03/29/17 11:48 Impression: A 76 year old male with productive cough. Patient notes pleuritic chest pain and dyspnea on exertion. Plan: -- Chest xray -- EKG -- Labs -- Influenza A B stat -- Urinalysis -- Duoben and Solumedrol -- Reassess and disposition Progress Notes: EKG shows NSR at [address]/T wave changes. Interpreted by me. Report Date : 03/29/2017 13:17:35 Procedure: Chest xray Dictator : Heidy Olmos MD IMPRESSION: No acute findings. 03/29/17 13:56 Spoke with PMD, reports patient was recently placed on steroids. Since patients symptoms have not improved outpatient he requests patient be admitted for further evaluation. - Lab Interpretations Lab Results: 03/29/17 12:45 03/29/17 12:45 Lab Results 03/29/17 12:45: Sodium 137, Potassium 4.3, Chloride 100, Carbon Dioxide 33, Anion Gap 9 L, BUN 10, Creatinine 0.9, Est GFR ( Amer) > 60, Est GFR (Non -Af Amer) > 60, Random Glucose 95, Calcium 9.6, Magnesium 1.8, Total Bilirubin 0.9, AST 39, ALT 38, Alkaline Phosphatase 73, Lactate Dehydrogenase 471, Total Creatine Kinase 247 H, CK-MB (CK-2) 3.0, CK-MB (CK-2) % Cancelled, Troponin I < 0.01, NT-Pro-B Natriuret Pep 115, Total Protein 7.7, Albumin 3.8, Globulin 3.9, Albumin/Globulin Ratio 1.0 L 03/29/17 12:45: PT 12.9 H, INR 1.17 H, APTT 40.3 H 03/29/17 12:45: WBC 8.3 D, RBC 4.07, Hgb 12.7 L, Hct 37.8 L, MCV 92.9, MCH 31.2 , MCHC 33.6, RDW 12.8, Plt Count 169, MPV 9.8, Gran % 74.7 H, Lymph % (Auto) 16.0 L, [place] % (Auto) 8.4 H, Eos % (Auto) 0.8 L, Baso % (Auto) 0.1, Gran # 6.22 , Lymph # 1.3, [place] # 0.7 H, Eos # 0.1, Baso # 0.01 I have reviewed the lab results: Yes - RAD Interpretation Radiology Orders: 03/29/17 11:48 CHEST PORTABLE [RAD] Stat - Medication Orders Current Medication Orders: Albuterol/Ipratropium (Duoneb 3 Mg/0.5 Mg (3 Ml) Ud) 3 ml IH [id number] TIFF Aspirin (Ecotrin) 81 mg PO QAM TIFF Atorvastatin Calcium (Lipitor) 10 mg PO DIN [facility] Last Admin: 03/29/17 17:14 Dose: 10 mg Levofloxacin/Dextrose (Levaquin 500mg) 500 mg in 100 mls @ 100 mls/hr IVPB DAILY [facility] PRN Reason: Protocol Methylprednisolone (Solu-Medrol) 40 mg IV Q8 [facility] Metoprolol Tartrate (Lopressor) 25 mg PO BID [facility] Last Admin: 03/29/17 17:14 Dose: 25 mg MAR Pulse and Blood Pressure Document 03/29/17 17:14 MV (Rec: 03/29/17 17:14 [id number]) Blood Pressure Blood Pressure (100/60-150/90) 156/97 Montelukast Sodium (Singulair) 10 mg PO HS TIFF Pantoprazole Sodium (Protonix Ec Tab) 40 mg PO 0630 TIFF Prasugrel (Effient) 10 mg PO DAILY [facility] Last Admin: 03/29/17 17:14 Dose: 10 mg Tamsulosin HCl (Flomax) 0.4 mg PO HS TIFF Discontinued Medications Albuterol/Ipratropium (Duoneb 3 Mg/0.5 Mg (3 Ml) Ud) 3 ml IH STAT STA Stop: 03/29/17 11:49 Last Admin: 03/29/17 12:22 Dose: 3 ml Albuterol/Ipratropium (Duoneb 3 Mg/0.5 Mg (3 Ml) Ud) 3 ml IH STAT STA Stop: 03/29/17 11:49 Last Admin: 03/29/17 13:00 Dose: 3 ml Methylprednisolone (Solu-Medrol) 125 mg IVP STAT STA Stop: 03/29/17 11:50 Last Admin: 03/29/17 12:22 Dose: 125 mg IVP Administration Document 03/29/17 12:22 RG (Rec: 03/29/17 12:23 RG [id number]) Charges for Administration # of IVP Administrations 1 - Scribe Statement The provider has reviewed the documentation as recorded by the Beckieibe Sarai Lopez Provider Beckieibe Attestation: All medical record entries made by the Scribe were at my direction and personally dictated by me. I have reviewed the chart and agree that the record accurately reflects my personal performance of the history, physical exam, medical decision making, and the department course for this patient. I have also personally directed, reviewed, and agree with the discharge instructions and disposition. Disposition/Present on Arrival - Present on Arrival Any Indicators Present on Arrival: No History of DVT/PE: No History of Uncontrolled Diabetes: No Urinary Catheter: No History of Decub. Ulcer: No History Surgical Site Infection Following: None - Disposition Have Diagnosis and Disposition been Completed?: Yes Diagnosis: COPD (chronic obstructive pulmonary disease) Disposition: HOSPITALIZED Disposition Time: 01:00 Condition: FAIR
[2017-03-29 13:03] LABS: BASO # 0.01 K/mm3 (0.0-2.0); BASO % 0.1 % (0.0-3.0); EOS # 0.1 (0.0-0.7); EOS % 0.8 % (1.5-5.0); GRAN # 6.22 (1.4-6.5); GRAN % 74.7 % (50.0-68.0); HEMATOCRIT 37.8 % (42.0-52.0); LYMPH # 1.3 (1.2-3.4); MEAN CELL VOLUME 92.9 fl (80.0-105.0); MEAN CORPUSCULAR HEMOGLOBIN 31.2 pg (25.0-35.0); MEAN CORPUSCULAR HGB CONC 33.6 g/dl (31.0-37.0); MEAN PLATELET VOLUME 9.8 fl (7.0-11.0); MONO # 0.7 (0.1-0.6); MONO % 8.4 % (1.0-6.0); RED CELL DISTRIBUTION WIDTH 12.8 % (11.5-14.5); WHITE BLOOD COUNT 8.3 10^3/ul (4.5-11.0)
[2017-03-29 13:13] LABS: ALKALINE PHOSPHATASE 73 U/L (38-126); ALT/SGPT 38 U/L (7-56); AST/SGOT 39 U/L (17-59); BILIRUBIN,TOTAL 0.9 mg/dL (0.2-1.3); BLOOD UREA NITROGEN 10 mg/dL (7-21); CALCIUM 9.6 mg/dL (8.4-10.5); CARBON DIOXIDE 33 mmol/L (21-33); CHLORIDE 100 mmol/L (98-107); GFR AFRICAN-AMERICAN > 60; GLUCOSE,RANDOM 95 mg/dL (70-110); INR 1.17 (0.93-1.08); MAGNESIUM 1.8 mg/dL (1.7-2.2); PARTIAL THROMBOPLASTIN TIME 40.3 Seconds (25.1-36.5); POTASSIUM 4.3 mmol/L (3.6-5.0); SODIUM 137 mmol/L (132-148); TOTAL PROTEIN 7.7 g/dL (5.8-8.3)
--- NOTE | 2017-03-29 13:19 | RAD ---
HISTORY: Chest pain COMPARISON: 12/19/2016 FINDINGS: LUNGS: The lungs are well inflated. There is bibasilar atelectasis/scarring. There is a stable calcified granuloma in the right lower lobe and left lateral lung base. PLEURA: No significant pleural effusion identified, no pneumothorax apparent. CARDIOVASCULAR: Normal. OSSEOUS STRUCTURES: No significant abnormalities. VISUALIZED UPPER ABDOMEN: Normal. OTHER FINDINGS: None. IMPRESSION: No acute findings.
[2017-03-29 13:24] LABS: TROPONIN I < 0.01 ng/mL
[2017-03-29 14:15] LABS: PH,URINE 7.5 (4.7-8.0); URINE BILIRUBIN NEGATIVE (NEGATIVE); URINE BLOOD NEGATIVE (NEGATIVE); URINE GLUCOSE (UA) NEGATIVE (NEGATIVE); URINE KETONE NEGATIVE (NEGATIVE); URINE LEUKOCYTE ESTERASE NEGATIVE Leu/uL (NEGATIVE); URINE PROTEIN NEGATIVE mg/dL (<30 mg/dL); URINE UROBILINOGEN 0.2 E.U./dL (<1 E.U./dL)
[2017-03-29 14:17] LABS: URINE APPEARANCE CLEAR (CLEAR); URINE COLOR YELLOW (YELLOW)
--- NOTE | 2017-03-29 18:50 | CARD ---
APPROVED REPORT EKG Measurement Heart [id number] <Conclusion> Normal sinus rhythm Minimal voltage criteria for LVH, may be normal variant Borderline ECG
[2017-03-29] MEDS ORDERED: Albuterol-Ipratrop 3 mg / 0.5 (3 ml) UD IH PRN (18:58)
[2017-03-29] MEDS: Albuterol-Ipratrop 3 mg / 0.5 (3 ml) UD IH SCH (19:29)
[2017-03-29] MEDS ORDERED: Influenza Vaccine 60 mcg/0.5 mL SYR (4YR UP) IM ONE (20:11)
[2017-03-29] MEDS ORDERED: Pneumococcal 23-Valent Vaccine IM ONE (20:11)
[2017-03-29] MEDS ORDERED: POLYETHYLENE GLYCOL 3350 17 GM/Dose PACKET PO ONE (21:09)
[2017-03-29] MEDS: MethylPREDNISolone 40 mg Vial IV SCH (21:48)
--- NOTE | 2017-03-30 01:02 | HP ---
HISTORY OF PRESENT ILLNESS: The patient is a 76-year-old who was seen in office earlier this week. He was given Levaquin and Medrol Dosepak along with some antitussive. Apparently, the patient's cough and congestion got worse and he was unable to take deep breath and was extremely short of breath, so he came to emergency room for further evaluation. He was found to have harsh wheezing bilaterally. He was given multiple nebulizer treatment and IV steroid with no significant relief, so he is being admitted because of failed outpatient treatment. Denies any fever. No history of chills. He has been on Levaquin already for 3 to 4 days. PAST MEDICAL HISTORY: Significant for: 1. Hypertension. 2. Coronary artery disease, status post recent angioplasty. 3. Sarcoidosis. 4. COPD. 5. Hyperlipidemia. 6. Recent RCA angioplasty. ALLERGIES: HE IS NOT ALLERGIC TO ANY MEDICATION. MEDICATIONS AT HOME: He is on Effient. He is on Breo Ellipta, takes Flomax 0.4 daily, simvastatin 20 mg daily, Singulair 10 mg daily, omeprazole 20 mg daily, metoprolol 25 twice a day, and aspirin 81 daily. SOCIAL HISTORY: He is and lives with his . Denies smoking or drinking. He used to be a smoker in the past. PHYSICAL EXAMINATION: GENERAL: He is awake, alert, oriented, and communicative. VITAL SIGNS: He is afebrile, pulse 95, respirations 18, and blood pressure 147/95. LUNGS: Bilateral harsh wheezing. HEART: S1 and S2 audible. ABDOMEN: Soft, obese, and nontender. No rebound. No guarding. NEUROLOGIC: The patient is awake, alert, oriented, and able to communicate. LABORATORY DATA: WBC is 8.3, hemoglobin is 12.7, hematocrit is 37.8, and platelets are 169. Chemistry; sodium 137, potassium 4.3, chloride 100, CO2 of 33, BUN 10, creatinine 0.9, and blood sugar 95. LFTs are within normal limits. Urinalysis is unremarkable. IMPRESSION: 1. Chronic obstructive pulmonary disease exacerbation. 2. History of sarcoidosis. 3. Asthmatic bronchitis. 4. Hypertension. 5. Coronary artery disease, status post angioplasty. PLAN: We will start the patient on nebulizer treatment. Continue him on Effient, aspirin, metoprolol, Flomax, start him on IV steroids, and I will order for procalcitonin and maintain him on Levaquin. We will reevaluate the patient in a.m. Eddie Green MD
[2017-03-30] MEDS: Albuterol-Ipratrop 3 mg / 0.5 (3 ml) UD IH SCH ×3 (01:55→13:37)
[2017-03-30] MEDS: Pantoprazole 40 mg EC Tab PO SCH (06:14)
[2017-03-30] MEDS: MethylPREDNISolone 40 mg Vial IV SCH ×3 (06:15→21:29)
[2017-03-30] MEDS: Sucralfate 1 gm/10 ml Oral Susp UD PO SCH ×3 (08:37→17:08)
[2017-03-30] MEDS: levoFLOXacin 500 mg in D5W 500 MG/100 ML BAG IVPB SCH (09:54)
[2017-03-30] MEDS ORDERED: Non Formulary Medication (Simvastatin [Simvastatin] 20 MG) PO SCH (10:00)
[2017-03-30 17:36] VITALS: RESP 20
[2017-03-30] MEDS: Levalbuterol 1.25 MG/3 ML Inhal Soln UD IH SCH (20:06)
[2017-03-31] MEDS: Levalbuterol 1.25 MG/3 ML Inhal Soln UD IH SCH ×4 (02:25→20:20)
[2017-03-31] MEDS: Pantoprazole 40 mg EC Tab PO SCH (05:41)
[2017-03-31] MEDS: Budesonide 0.5 mg/2 ml Inhal Susp UD IH SCH ×2 (07:44→20:20)
[2017-03-31] MEDS: Sucralfate 1 gm/10 ml Oral Susp UD PO SCH ×3 (08:04→16:14)
[2017-03-31] MEDS: MethylPREDNISolone 40 mg Vial IV SCH ×2 (09:04→21:42)
[2017-03-31] MEDS: levoFLOXacin 500 mg in D5W 500 MG/100 ML BAG IVPB SCH (09:06)
[2017-03-31] MEDS: POLYETHYLENE GLYCOL 3350 17 GM/Dose PACKET PO SCH (12:05)
[2017-03-31] MEDS: Fluticasone Nasal 50 mcg/Spray NS SCH (12:57)
--- NOTE | 2017-03-31 21:20 | PN ---
DATE: SUBJECTIVE: The patient is 76-year-old, seen and examined. He was feeling well up until this morning. He had episode of cough. He became diaphoretic, and after he coughed up some mucus, he started to feel better. PHYSICAL EXAMINATION: GENERAL: On examination now, he is awake, alert, oriented, communicative. VITAL SIGNS: He is afebrile. Pulse 78, respirations 20, and blood pressure 125/94. LUNGS: Bilateral fair airflow. Few expiratory occasional rhonchi. HEART: S1 and S2 audible. ABDOMEN: Soft, nontender. No rebound. No guarding. NEUROLOGIC: The patient is awake and alert, communicative. ASSESSMENT: 1. Asthmatic bronchitis. 2. Hypertension. 3. Coronary artery disease. 4. History of sarcoidosis. 5. Bronchospasm. 6. Status post angioplasty. PLAN: The patient is hemodynamically stable. We will discontinue telemetry. We will continue him on his usual cardiac medications including aspirin, Effient. He has been started on Flonase. We will continue him on Levaquin, metoprolol, and prednisone, and we will re-evaluate the patient in a.m. Eddie Green MD
[2017-04-01] MEDS: Levalbuterol 1.25 MG/3 ML Inhal Soln UD IH SCH ×4 (01:01→19:50)
[2017-04-01] MEDS: Pantoprazole 40 mg EC Tab PO SCH (06:19)
[2017-04-01] MEDS: Sucralfate 1 gm/10 ml Oral Susp UD PO SCH ×3 (07:52→16:59)
--- NOTE | 2017-04-01 07:53 | PN ---
DATE: 04/01/2017 PULMONARY NOTE SUBJECTIVE: The patient appears very comfortable this morning. He is not short of breath at rest. PHYSICAL EXAMINATION: VITAL SIGNS: (Last noted in the computer): Temperature is 97.9, pulse 81, respirations 18, blood pressure 125/94. Oxygen saturation on nasal cannula is 95-100%. HEENT: Normocephalic, atraumatic. NECK: No JVD. CARDIOVASCULAR: Positive S1, S2. No S3 gallop. LUNGS: Improved breath sounds at the bases. Less rhonchi. Much less wheezing. EXTREMITIES: No clubbing, cyanosis or edema is noted. Calves are nontender to palpation. GI: Abdomen is soft, nontender and nondistended. Bowel sounds are positive. SKIN: No acute rash. NEUROLOGIC: Exam limited at the present time. IMPRESSION: 1. Acute bronchitis. 2. Chronic obstructive pulmonary disease. 3. Sarcoidosis. 4. Mild anemia. PLAN: The patient appears very comfortable this morning. He is not short of breath at rest. He is coughing much less. He does state to feeling much better overall. On physical exam, his bronchospasm is significantly less. I will continue with the current nebulizer treatments and inhaled steroids. However, I will decrease the intravenous steroids this morning. The patient remains on antibiotic therapy. There are no temperatures noted. There is no leukocytosis. Clinical status of the patient is significantly improved. The patient is advised to be out of bed as much as possible. I will discuss the above with the attending physician. Damian Helm MD MTDD
[2017-04-01] MEDS: Budesonide 0.5 mg/2 ml Inhal Susp UD IH SCH ×2 (08:00→19:50)
[2017-04-01] MEDS: Fluticasone Nasal 50 mcg/Spray NS SCH (09:05)
[2017-04-01] MEDS: levoFLOXacin 500 mg in D5W 500 MG/100 ML BAG IVPB SCH (09:05)
[2017-04-01] MEDS: POLYETHYLENE GLYCOL 3350 17 GM/Dose PACKET PO SCH (09:06)
[2017-04-01] MEDS: MethylPREDNISolone 40 mg Vial IVP SCH ×2 (09:07→21:44)
--- NOTE | 2017-04-01 09:37 | CP.PCM.CON ---
History of Present Illness - History of Present Illness History of Present Illness: This 76-year-old patient with a past medical history of coronary artery disease and sarcoidosis COPD dyslipidemia, hypertension was admitted for complaints of increased shortness of breath inspite of treatment as an outpatient with the Levaquin and Medrol Dosepak.. Patient is being treated now with IV Solu-Medrol and antibiotics Levaquin. Patient is also on bronchodilators. Complaints of intermittent episodes of difficulty in swallowing. And cough at times after eating. History of coronary artery disease status post angioplasty of RCA in December 2016. Patient is on effient and aspirin for drug-eluting stent. History of sarcoidosis for a long time. Never had endoscopy done. Patient is presently on Carafate 1 g before meals 3 times a day and also on pantoprazole. History of constipation and he has been on MiraLAX. Her last colonoscopy was in [address] Mejia no polyps found hemorrhoids diverticulosis were found. Never had endoscopy done Review of Systems - Review of Systems All systems: reviewed and no additional remarkable complaints except - Constitutional Constitutional: As Per HPI. absent: Chills, Fever - EENT Eyes: As Per HPI. absent: Blurred Vision - Cardiovascular Cardiovascular: absent: Chest Pain, Palpitations - Respiratory Respiratory: Cough, Dyspnea on Exertion, Wheezing - Gastrointestinal Gastrointestinal: As Per HPI - Neurological Neurological: absent: Numbness, Syncope - Psychiatric Psychiatric: As Per HPI - Endocrine Endocrine: As Per HPI - Hematologic/Lymphatic Hematologic: absent: Easy Bleeding, Lymphadenopathy Past Patient History - Infectious Disease Hx of Infectious Diseases: None - Past Social History Smoking Status: Former Smoker - CARDIAC Hx Cardiac Disorders: Yes Hx Hypertension: Yes Hx Pacemaker: No Other/Comment: Cardiac Stents x 4, 1996/2009/2016 - PULMONARY Hx Respiratory Disorders: Yes (sarcoidosis,USED TO SMOKE PK 1/2 OF CIGARETTES.) Hx Chronic Obstructive Pulmonary Disease (COPD): Yes - NEUROLOGICAL Hx Neurological Disorder: No - HEENT Hx HEENT Problems: Yes (NOSE BLEED) - RENAL Hx Chronic Kidney Disease: No - ENDOCRINE/METABOLIC Hx Endocrine Disorders: No - HEMATOLOGICAL/ONCOLOGICAL Hx Blood Disorders: No - INTEGUMENTARY Hx Dermatological Problems: No - MUSCULOSKELETAL/RHEUMATOLOGICAL Hx Musculoskeletal Disorders: No Hx Falls: No - GASTROINTESTINAL Hx Gastrointestinal Disorders: Yes Hx Gastroesophageal Reflux: Yes - GENITOURINARY/GYNECOLOGICAL Hx Genitourinary Disorders: Yes Hx Prostate Problems: Yes (BPH) - PSYCHIATRIC Hx Psychophysiologic Disorder: Yes (USED TO SMOKE CIGARETTES.PK1/2.,DRINKS SOCIALLY) Hx Emotional Abuse: No Hx Physical Abuse: No Hx Substance Use: No - SURGICAL HISTORY Hx Surgeries: Yes (CARDIAC CATH WITH 4 STENTS 97,2009,2016) Hx Cardiac Catheterization: Yes - ANESTHESIA Hx Anesthesia: No Hx Anesthesia Reactions: No Hx Malignant Hyperthermia: No Meds Allergies/Adverse Reactions: Allergies Allergy/AdvReac Type Severity Reaction Status Date / Time No Known Allergies Allergy Verified 03/29/17 18:26 - Medications Medications: Current Medications Albuterol/Ipratropium (Duoneb 3 Mg/0.5 Mg (3 Ml) Ud) 3 ml IH Q2H PRN PRN Reason: Shortness of Breath Last Admin: 03/31/17 05:55 Dose: 3 ml Aspirin (Ecotrin) 81 mg PO QAM [facility] Last Admin: 03/31/17 09:06 Dose: 81 mg Atorvastatin Calcium (Lipitor) 10 mg PO DIN [facility] Last Admin: 03/31/17 17:05 Dose: 10 mg Budesonide (Pulmicort Respules) 0.5 mg IH [id number] [facility] Last Admin: 03/31/17 20:20 Dose: 0.5 mg Fluticasone Propionate (Flonase) 1 actuation NS DAILY [facility] Last Admin: 03/31/17 12:57 Dose: 1 spray Levofloxacin/Dextrose (Levaquin 500mg) 500 mg in 100 mls @ 100 mls/hr IVPB DAILY TIFF PRN Reason: Protocol Last Admin: 03/31/17 09:06 Dose: 100 mls/hr Levalbuterol HCl (Xopenex) 1.25 mg IH [id number] [facility] Last Admin: 04/01/17 01:01 Dose: 1.25 mg Methylprednisolone (Solu-Medrol) 40 mg IV Q12 [facility] Last Admin: 03/31/17 21:42 Dose: 40 mg Metoprolol Tartrate (Lopressor) 25 mg PO BID [facility] Last Admin: 03/31/17 17:05 Dose: 25 mg Montelukast Sodium (Singulair) 10 mg PO HS [facility] Last Admin: 03/31/17 21:43 Dose: 10 mg Pantoprazole Sodium (Protonix Ec Tab) 40 mg PO 0630 [facility] Last Admin: 03/31/17 05:41 Dose: 40 mg Polyethylene Glycol (Miralax) 17 gm PO DAILY [facility] Last Admin: 03/31/17 12:05 Dose: 17 gm Prasugrel (Effient) 10 mg PO DAILY [facility] Last Admin: 03/31/17 09:05 Dose: 10 mg Sucralfate (Carafate Oral Susp) 1 gm PO AC [facility] Last Admin: 03/31/17 16:14 Dose: 1 gm Tamsulosin HCl (Flomax) 0.4 mg PO HS [facility] Last Admin: 03/31/17 21:44 Dose: 0.4 mg Physical Exam - Constitutional Appears: No Acute Distress - Head Exam Head Exam: ATRAUMATIC, NORMOCEPHALIC - Eye Exam Eye Exam: EOMI, PERRL - ENT Exam ENT Exam: Mucous Membranes Moist, Normal External Ear Exam - Neck Exam Neck exam: Positive for: Full Rom. Negative for: Lymphadenopathy - Respiratory Exam Respiratory Exam: absent: Respiratory Distress Additional comments: few scattered rhonchi bilaterally - Cardiovascular Exam Cardiovascular Exam: +S1, +S2. absent: JVD - GI/Abdominal Exam GI & Abdominal Exam: Soft. absent: Mass, Tenderness Results - Vital Signs Recent Vital Signs: Last Vital Signs Temp 97.9 F 03/31/17 08:10 Pulse 81 03/31/17 18:00 Resp 20 03/31/17 08:10 BP 125/94 H 03/31/17 17:05 Pulse Ox 95 03/31/17 08:10 - Labs Result Diagrams: 03/29/17 12:45 03/29/17 12:45 Assessment & Plan - Assessment and Plan (Free Text) Assessment: the 76-year-old patient admitted with a COPD exacerbation, history of sarcoidosis, coronary artery disease on effient and aspirin has some difficulty in swallowing and also cough. Patient clinically has still a few scattered rhonchi. Never had endoscopy done the differential diagnoses should include gastroesophageal reflux disease motility dysfunction and oropharyngeal candidiasis to be considered . Patient had sarcoidosis mediastinal lymphadenopathy with extrinsic compression also should be considered as a differential diagnosis. The CT scan done in March 2016 was reviewed and and it revealed only subcentimeter multiple calcified or adenopathy Plan: 1. Continue Protonix and Carafate 2. Change his diet to soft diet and advised the patient to chew well and eat slowly 3. Would not contemplate doing an endoscopy at this present time as patient still has some cough and also rhonchi bilaterally just to recovering from COPD exacerbation. Endoscopy can be electively performed 4. Would request a esophagram to further evaluate on Sunday a.m. Discussed with the patient's daughter who is a nurse in [employer] at length and also with the patient - Date & Time Date: 03/31/17 Time: 11:30
--- NOTE | 2017-04-01 21:37 | PN ---
DATE: SUBJECTIVE: Patient is feeling better after changing the diet to soft low-residue diet. Cough has lessened. His main complaint is coughing after p.o. intake. Patient never had an endoscopy done. Patient is here for COPD exacerbation and history of sarcoid. PHYSICAL EXAMINATION: GENERAL: VITAL SIGNS: His temperature is 97.9, blood pressure 125/78, pulse 67, respirations 20, O2 saturation 100%. HEENT: Atraumatic, anicteric. NECK: Supple. HEART: S1 and S2 heard. LUNGS: Bilateral air entry present. Few scattered rhonchi present. EXTREMITIES: No edema. No cyanosis. NEUROLOGIC: Alert and oriented, moves all the extremities. LABORATORY DATA: No recent labs. IMPRESSION: This is a 76-year-old patient with a long history of sarcoidosis and chronic obstructive pulmonary disease exacerbation, admitted with worsening of the symptoms in spite of being outpatient treatment with steroid and antibiotics. Patient is clinically feeling better now, he is on IV steroid along with his antibiotic Levaquin. Patient has a long history of sarcoidosis. Patient has history of chronic cough and also worsening of his symptoms after p.o. intake. The DD has to be considered include reflux disease, erosive esophagitis, rule out motility disorder. RECOMMENDATIONS: We would recommend; 1. To have an esophagogram. 2. Continue the diet, low-residue soft diet. 3. Patient is on Carafate and also on Protonix. Patient is on pantoprazole 40 mg daily, we will continue that and sucralfate; he is also on that and we will continue that. We will continue the Miralax on a p.r.n. basis for constipation. Patient did have a colonoscopy done in 2015 by that revealed no polyps, only diverticulosis and hemorrhoids. Thank you very much for allowing us to participate in the care of the patient. We will continue to closely follow up his care and suggest further management based on the clinical course. Mike Alejandra MD [facility] CENTERGurjit
[2017-04-02] MEDS: Levalbuterol 1.25 MG/3 ML Inhal Soln UD IH SCH ×3 (01:05→19:24)
[2017-04-02] MEDS: Pantoprazole 40 mg EC Tab PO SCH (05:47)
--- NOTE | 2017-04-02 07:22 | PN ---
DATE: 04/02/2017 PULMONARY NOTE SUBJECTIVE: The patient appears comfortable this morning. He is not short of breath at rest. PHYSICAL EXAMINATION: VITAL SIGNS: (Last noted in the computer): Temperature is 97.9, pulse 67, respirations 18, blood pressure 145/90. Oxygen saturation on room air is 100%. HEENT: Normocephalic, atraumatic. NECK: No JVD. CARDIOVASCULAR: Positive S1, S2. No S3 gallop. LUNGS: Improved breath sounds at the bases. Minimal/less rhonchi. No wheezing this morning. EXTREMITIES: No clubbing, cyanosis or edema. Calves are nontender to palpation. GI: Abdomen is soft, nontender and nondistended. Bowel sounds are positive. SKIN: No acute rash. NEUROLOGIC: Exam limited at the present time. IMPRESSION: 1. Acute bronchitis. 2. Chronic obstructive pulmonary disease. 3. Sarcoidosis. 4. Mild anemia. PLAN: The patient appears very comfortable this morning. He is not short of breath at rest. He does state to feeling much much better overall. On physical exam, his bronchospasm continues to slowly resolve. In addition, the oxygen saturation on room air is now 100%. I will continue the current nebulizer treatments and low-dose intravenous steroids (decreased yesterday) for now. The patient remains on antibiotic therapy. There are no temperatures noted. There is no leukocytosis. GI evaluation is ongoing. Clinical status of the patient is significantly improved. I will discuss the above with the attending physician. Damian Helm MD MTDD
[2017-04-02] MEDS: Budesonide 0.5 mg/2 ml Inhal Susp UD IH SCH ×2 (08:09→19:24)
[2017-04-02] MEDS ORDERED: Barium Sulfate for Susp 98% w/w 340g Bottle ONE ×2 (08:31)
--- NOTE | 2017-04-02 08:38 | PN ---
DATE: 04/01/2017 SUBJECTIVE: The patient is a 76-year-old, seen and examined, sitting in chair, seems to be comfortable, still have cough and congestion. No history of dysphagia. No nausea or vomiting. OBJECTIVE: VITAL SIGNS: He is afebrile, pulse 67, respirations 20, blood pressure 125/78. LUNGS: Bilateral good airflow. No rhonchi or crackle. HEART: S1, S2 audible. ABDOMEN: Soft, nontender. No rebound. No guarding. NEUROLOGIC: The patient is awake, alert, oriented, communicative, ambulatory. ASSESSMENT AND PLAN: 1. Chronic obstructive pulmonary disease exacerbation. 2. Asthmatic bronchitis. 3. Coronary artery disease, status post angioplasty. 4. History of sarcoidosis. 4. Questionable esophagitis or esophageal motility disorder. So, plan is we will continue the patient on Carafate, nebulizer treatment, he is on aspirin, he is on Effient, he is on Flomax, we will continue all that. He has been on Levaquin, we will continue that also. We will maintain him on statin. He is on Singulair, he is on 30 mg of Solu-Medrol, we will continue that. The patient is scheduled to have done in the morning. He will be n.p.o. after Eddie Green MD
--- NOTE | 2017-04-02 08:44 | PN ---
DATE: 03/30/2017 HISTORY OF PRESENT ILLNESS: The patient is 76 years old, seen and examined, sitting in chair, seems to be very comfortable. No nausea or vomiting. No diarrhea. PHYSICAL EXAMINATION VITAL SIGNS: He is afebrile, pulse 105, respirations 20, and blood pressure 136/98. LUNGS: Bilateral few expiratory rhonchi. HEART: S1 and S2 audible. ABDOMEN: Soft and nontender. No rebound. No guarding. NEUROLOGIC: Neurologically, the patient is awake, alert, oriented, communicative, ambulatory. EXTREMITIES: Bilateral legs, no edema. LABORATORY DATA: Procalcitonin 0.05. Urinalysis is unremarkable. ASSESSMENT AND PLAN: 1. Chronic obstructive pulmonary disease exacerbation. 2. History of sarcoidosis. 3. Coronary artery disease, status post angioplasty. 4. History of gastritis. 5. Sinus tachycardia probably secondary to nebulizer treatment Xopenex. We will taper down steroid. We will reevaluate the patient in a.m. If he is doing well, he will be discharged over the weekend. Eddie Green MD
[2017-04-02] MEDS: Sucralfate 1 gm/10 ml Oral Susp UD PO SCH ×3 (09:01→17:06)
[2017-04-02] MEDS: POLYETHYLENE GLYCOL 3350 17 GM/Dose PACKET PO SCH (09:02)
[2017-04-02] MEDS: MethylPREDNISolone 40 mg Vial IVP SCH ×2 (09:23→21:46)
[2017-04-02] MEDS: Fluticasone Nasal 50 mcg/Spray NS SCH (09:24)
[2017-04-02] MEDS: levoFLOXacin 500 mg in D5W 500 MG/100 ML BAG IVPB SCH (09:24)
[2017-04-02] MEDS ORDERED: Barium Sulfate for Susp 96% w/w 176g Bottle PR ONE (10:42)
--- NOTE | 2017-04-02 11:36 | CON ---
DATE: 03/31/2017 PULMONARY CONSULTATION REASON FOR CONSULTATION: Chronic obstructive pulmonary disease. REFERRING PHYSICIAN: Eddie Green MD HISTORY OF PRESENT ILLNESS: The patient is a 76-year-old male, with past medical history significant for chronic obstructive pulmonary disease, sarcoidosis, coronary artery disease, status post recent angioplasty and hypertension, who presents to [facility] with a one-week history of worsening shortness of breath at rest, dyspnea on exertion, cough, and sputum production. There is no history of chest pain, coughing up of blood, or chest pain - made worse with deep respirations. There is no history of temperatures, chills or infectious exposure. There is no history of night sweats, weight loss or appetite change prior to the above events. No history of leg or calf pains. No history of syncope or diaphoresis. No history of recent travel or trauma. REVIEW OF SYSTEMS: No history of nausea, vomiting or diarrhea. No acute urinary symptoms. No new neurologic or musculoskeletal complaints. Rest of the review of systems is negative. ALLERGIES: NO KNOWN ALLERGIES. SOCIAL HISTORY: Positive for tobacco and negative for alcohol. FAMILY HISTORY: No inheritable diseases. MEDICATIONS: Include Effient, Breo Ellipta, Flomax, simvastatin, Singulair, omeprazole, Lopressor, and aspirin. PHYSICAL EXAMINATION: GENERAL: The patient is not short of breath at rest. He is not using accessory muscles for breathing. VITAL SIGNS: (Last noted in the computer): Temperature is 98.6, pulse is 89, respirations are 18/20, and blood pressure is 119/79. Oxygen saturation on room air is 100%. HEENT: Normocephalic and atraumatic. NECK: No JVD. CARDIOVASCULAR: Positive S1 and S2. No S3, gallop. LUNGS: Decreased breath sounds at the bases. Mild bilateral rhonchi. Mild bilateral wheezing. EXTREMITIES: No clubbing, cyanosis or edema. Calves are nontender to palpation. GASTROINTESTINAL: Abdomen is soft, nontender and nondistended. Bowel sounds are positive. SKIN: No acute rash. NEUROLOGIC: Exam is limited at the present time. PERTINENT LABORATORY DATA Pertinent Laboratory Data: Chest x-ray was done on 03/29/2017 and reviewed. There is minimal scarring at the bases. There are no acute findings. CBC: White count of 8.3, hemoglobin of 12.7, hematocrit of 37.8, and platelets of 169,000. Complete metabolic profile: Creatinine kinase is 247. Rest of the metabolic profile is within normal limits. Procalcitonin was also done yesterday - negative (0.05). IMPRESSION Impression: 1. Acute bronchitis. 2. Chronic obstructive pulmonary disease. 3. Sarcoidosis. 4. Mild anemia. 5. Coronary artery disease. PLAN: The patient presents to [facility] with a one-week history of worsening pulmonary symptoms. I did review the chest x-ray as above. It shows no acute findings. I have also reviewed the laboratory data. A negative procalcitonin is noted. On physical exam, there is [id number] bronchospasm noted. There is no significant alveolar-arterial gradient. Oxygen saturation on room air is 100%. I will continue the current nebulizer treatments and current intravenous steroids for now. I will also add inhaled Pulmicort this morning. The patient is on Breo Ellipta at home. The patient remains on antibiotic therapy. There are no temperatures noted. There is no leukocytosis. The patient does feel better this morning - compared to the past few days. He is clinically improved. Additional pulmonary intervention will be based on the clinical status of the patient. I will discuss the above with Dr. Green. Thank you very much for this pulmonary consultation. Damian Helm MD AMA
--- NOTE | 2017-04-02 13:54 | PN ---
DATE: SUBJECTIVE: The patient is 76-year-old, states he feels a lot better. He still gets bouts of cough, going for esophagogram today. PHYSICAL EXAMINATION VITAL SIGNS: He is afebrile, pulse 73, respiration 20, blood pressure 132/82. LUNGS: Bilateral occasional expiratory rhonchi, diffuse. HEART: S1 and S2 audible. ABDOMEN: Soft and nontender. No rebound. No guarding. NEUROLOGIC: The patient is awake, alert, oriented, communicative and ambulatory. LABORATORY DATA: WBC 8.3, hemoglobin 12, hematocrit 37.8, platelets 169. Procalcitonin is 0.05. Flu test is negative. ASSESSMENT: 1. Sarcoidosis. 2. Chronic obstructive pulmonary disease exacerbation. 3. Coronary artery disease. 4. Questionable esophageal motility disorder. PLAN: We will continue the patient on nebulizer treatment. Continue on aspirin. He is on Effient. We will continue him on nasal spray. He is on Levaquin. Continue statins. Slowly taper down the steroid. We will discuss with Dr. Alejandra, if he needs endoscopy, otherwise we will make a discharge plan in a.m. Eddie Green MD
--- NOTE | 2017-04-02 15:32 | RAD ---
PROCEDURE: Esophagram HISTORY: r/o esophagus lesion COMPARISON: Not available TECHNIQUE: Any esophagram was performed utilizing biphasic technique. FINDINGS: Swallowing of barium was monitored fluoroscopically. Normal propulsive esophageal peristaltic activity was observed. The esophagus is normal in caliber and mucosal detail. There is no esophageal mass or ulceration identified. There is no hiatal hernia. No gastroesophageal reflux was witnessed during this examination, performed without provocative maneuvers. Transient tertiary peristalsis was observed during the examination. IMPRESSION: No esophageal mass or ulceration identified. No hiatal hernia. Transient tertiary peristalsis was observed.
[2017-04-03] MEDS: Levalbuterol 1.25 MG/3 ML Inhal Soln UD IH SCH ×4 (01:04→20:36)
[2017-04-03] MEDS: Pantoprazole 40 mg EC Tab PO SCH (05:29)
--- NOTE | 2017-04-03 08:02 | PN ---
DATE: PULMONARY NOTE SUBJECTIVE: The patient appears comfortable this morning. He is not short of breath at rest. OBJECTIVE: VITALS (Last noted in the computer): Temperature is 98.0, pulse 71, respirations 18, blood pressure 148/95. Oxygen saturation on nasal cannula is 98% to 99%. HEENT: Normocephalic, atraumatic. No JVD. CARDIOVASCULAR: Positive S1, S2. No S3, gallop. LUNGS: Less rhonchi. No wheezing. EXTREMITIES: No clubbing, cyanosis, or edema. Calves are nontender to palpation. GI: Abdomen is soft, nontender, and nondistended. Bowel sounds are positive. SKIN: No acute rash. NEUROLOGIC: Limited at the present time. IMPRESSION: 1. Acute bronchitis. 2. Chronic obstructive pulmonary disease. 3. Sarcoidosis. 4. Mild anemia. PLAN: The patient appears comfortable this morning. He is not short of breath at rest. He is much less dyspneic on exertion. He does state to feeling much, much better overall. On physical exam, his bronchospasm continues to slowly resolve. In addition, there is no significant alveolar-arterial gradient. I will continue the current nebulizer treatments and decrease the intravenous steroids this morning. The patient remains on antibiotic therapy. There are no temperatures noted. There is no leukocytosis. Input by GI is noted. Clinical status of the patient is significantly improved. The patient is advised to be out of bed as much as possible. I will discuss the above with Dr. Green. Damian Helm MD MTDD
[2017-04-03] MEDS: Sucralfate 1 gm/10 ml Oral Susp UD PO SCH ×3 (08:15→17:03)
[2017-04-03] MEDS: Budesonide 0.5 mg/2 ml Inhal Susp UD IH SCH ×2 (08:17→20:35)
[2017-04-03 08:41] VITALS: TEMP 98
[2017-04-03] MEDS: Fluticasone Nasal 50 mcg/Spray NS SCH (09:28)
[2017-04-03] MEDS: POLYETHYLENE GLYCOL 3350 17 GM/Dose PACKET PO SCH (09:29)
[2017-04-03] MEDS ORDERED: MethylPREDNISolone 40 mg Vial IVP SCH (10:00)
[2017-04-03] MEDS ORDERED: levoFLOXacin 500 MG TAB PO SCH (10:00)
[2017-04-03 16:41] VITALS: BP 124/81; PULSE 69; O2SAT 98
--- NOTE | 2017-04-03 17:11 | CP.PCM.PN ---
<Danielle Reynoso - Last Filed: 04/03/17 17:02> Subjective - Date & Time of Evaluation Date of Evaluation: 04/03/17 Time of Evaluation: 10:30 - Subjective Subjective: Seen and examined at the bedside earlier today, the chart was reviewed. No acute overnight events reported. Patient had esophagus x-ray yesterday report no mass or ulcer, transient tertiary peristalsis noted. Patient denies nausea, vomiting, or abdominal pain, no reports of overt GI bleed. Objective - Vital Signs/Intake and Output Vital Signs (last 24 hours): Temp Pulse Resp BP Pulse Ox 98 F 69 20 124/81 98 04/03/17 16:00 04/03/17 16:00 04/03/17 16:00 04/03/17 16:00 04/03/17 16:00 Intake and Output: 04/03/17 04/03/17 06:59 18:59 Intake Total 780 Output Total 2 Balance 778 - Medications Medications: Current Medications Albuterol/Ipratropium (Duoneb 3 Mg/0.5 Mg (3 Ml) Ud) 3 ml IH Q2H PRN PRN Reason: Shortness of Breath Last Admin: 03/31/17 05:55 Dose: 3 ml Aspirin (Ecotrin) 81 mg PO QAM [facility] Last Admin: 04/03/17 09:28 Dose: 81 mg Atorvastatin Calcium (Lipitor) 10 mg PO DIN [facility] Last Admin: 04/02/17 17:07 Dose: 10 mg Benzonatate (Tessalon Perles) 200 mg PO BID [facility] Last Admin: 04/03/17 12:27 Dose: 200 mg Budesonide (Pulmicort Respules) 0.5 mg IH [id number] [facility] Last Admin: 04/03/17 08:17 Dose: 0.5 mg Fluticasone Propionate (Flonase) 1 actuation NS DAILY [facility] Last Admin: 04/03/17 09:28 Dose: 1 spray Levalbuterol HCl (Xopenex) 1.25 mg IH [id number] [facility] Last Admin: 04/03/17 13:38 Dose: 1.25 mg Levofloxacin (Levaquin) 500 mg PO DAILY [facility] Last Admin: 04/03/17 09:28 Dose: 500 mg Methylprednisolone (Solu-Medrol) 20 mg IVP Q12 [facility] Last Admin: 04/03/17 09:29 Dose: 20 mg Metoprolol Tartrate (Lopressor) 25 mg PO BID [facility] Last Admin: 04/03/17 09:28 Dose: 25 mg Montelukast Sodium (Singulair) 10 mg PO HS [facility] Last Admin: 04/02/17 21:45 Dose: 10 mg Pantoprazole Sodium (Protonix Ec Tab) 40 mg PO 0630 [facility] Last Admin: 04/03/17 05:29 Dose: 40 mg Polyethylene Glycol (Miralax) 17 gm PO DAILY [facility] Last Admin: 04/03/17 09:29 Dose: 17 gm Prasugrel (Effient) 10 mg PO DAILY [facility] Last Admin: 04/03/17 09:28 Dose: 10 mg Sucralfate (Carafate Oral Susp) 1 gm PO AC [facility] Last Admin: 04/03/17 12:27 Dose: 1 gm Tamsulosin HCl (Flomax) 0.4 mg PO HS [facility] Last Admin: 04/02/17 21:45 Dose: 0.4 mg - Labs Labs: PT 12.9 SECONDS (9.4-12.5) H 03/29/17 12:45 INR 1.17 (0.93-1.08) H 03/29/17 12:45 APTT 40.3 Seconds (25.1-36.5) H 03/29/17 12:45 - Constitutional Appears: No Acute Distress - Head Exam Head Exam: NORMOCEPHALIC - Eye Exam Eye Exam: Normal appearance. absent: Scleral icterus - ENT Exam ENT Exam: Mucous Membranes Moist - Respiratory Exam Respiratory Exam: Rhonchi, NORMAL BREATHING PATTERN. absent: Wheezes, Respiratory Distress - Cardiovascular Exam Cardiovascular Exam: +S1, +S2 - GI/Abdominal Exam GI & Abdominal Exam: Soft, Normal Bowel Sounds. absent: Guarding, Tenderness, Rebound - Extremities Exam Extremities Exam: absent: Calf Tenderness, Pedal Edema - Neurological Exam Neurological Exam: Alert, Awake, Oriented x3 - Skin Skin Exam: Dry, Warm Assessment and Plan - Assessment and Plan (Free Text) Assessment: Assessment: Dysphagia, status post esophagus x-ray noting no mass or ulcer, noticed transient tertiary peristalsis History of sarcoidosis with mediastinal lymphadenopathy, CT scan done March 2016 revealing only subcentimeter multiple calcified adenopathy Exacerbations COPD Coronary artery disease on Effient Plan: Continue Protonix and Carafate Recommend soft diet and advised to eat slowly and chew well Discussed with patient regarding elective outpatient endoscopy when pulmonary status has improved, patient recovering from an exacerbation of COPD and has coughing with bilateral rhonchi Plan for discharge today, discussed with patient outpatient treatment plan. Seen and discussed with Dr. Mcmanus. immediately <Mike Alejandra V - Last Filed: 04/03/17 20:11> Objective - Vital Signs/Intake and Output Vital Signs (last 24 hours): Temp Pulse Resp BP Pulse Ox 98 F 69 20 124/81 98 04/03/17 16:00 04/03/17 16:00 04/03/17 16:00 04/03/17 17:03 04/03/17 16:00 - Medications Medications: Current Medications Albuterol/Ipratropium (Duoneb 3 Mg/0.5 Mg (3 Ml) Ud) 3 ml IH Q2H PRN PRN Reason: Shortness of Breath Last Admin: 03/31/17 05:55 Dose: 3 ml Aspirin (Ecotrin) 81 mg PO QAM [facility] Last Admin: 04/03/17 09:28 Dose: 81 mg Atorvastatin Calcium (Lipitor) 10 mg PO DIN [facility] Last Admin: 04/03/17 17:03 Dose: 10 mg Benzonatate (Tessalon Perles) 200 mg PO BID [facility] Last Admin: 04/03/17 12:27 Dose: 200 mg Budesonide (Pulmicort Respules) 0.5 mg IH [id number] [facility] Last Admin: 04/03/17 08:17 Dose: 0.5 mg Fluticasone Propionate (Flonase) 1 actuation NS DAILY [facility] Last Admin: 04/03/17 09:28 Dose: 1 spray Levalbuterol HCl (Xopenex) 1.25 mg IH [id number] [facility] Last Admin: 04/03/17 13:38 Dose: 1.25 mg Levofloxacin (Levaquin) 500 mg PO DAILY [facility] Last Admin: 04/03/17 09:28 Dose: 500 mg Methylprednisolone (Solu-Medrol) 20 mg IVP Q12 [facility] Last Admin: 04/03/17 09:29 Dose: 20 mg Metoprolol Tartrate (Lopressor) 25 mg PO BID [facility] Last Admin: 04/03/17 17:03 Dose: 25 mg Montelukast Sodium (Singulair) 10 mg PO HS [facility] Last Admin: 04/02/17 21:45 Dose: 10 mg Pantoprazole Sodium (Protonix Ec Tab) 40 mg PO 0630 [facility] Last Admin: 04/03/17 05:29 Dose: 40 mg Polyethylene Glycol (Miralax) 17 gm PO DAILY [facility] Last Admin: 04/03/17 09:29 Dose: 17 gm Prasugrel (Effient) 10 mg PO DAILY [facility] Last Admin: 04/03/17 09:28 Dose: 10 mg Sucralfate (Carafate Oral Susp) 1 gm PO AC [facility] Last Admin: 04/03/17 17:03 Dose: 1 gm Tamsulosin HCl (Flomax) 0.4 mg PO HS [facility] Last Admin: 04/02/17 21:45 Dose: 0.4 mg - Labs Labs: PT 12.9 SECONDS (9.4-12.5) H 03/29/17 12:45 INR 1.17 (0.93-1.08) H 03/29/17 12:45 APTT 40.3 Seconds (25.1-36.5) H 03/29/17 12:45 Attending/Attestation - Attestation I have personally seen and examined this patient.: Yes I have fully participated in the care of the patient.: Yes I have reviewed all pertinent clinical information, including history, physical exam and plan: Yes Notes (Text): This is an addendum to GI progress report dictated by Danielle Ryenoso APN.The patient was seen and examined earlier. Medical records, lab studies, imagings were reviewed. Last 24 hours events reviewed. Agreed with the above treatment plan as outlined in Danielle Reynoso APN's notes the with the addition of the following On examination abdomen soft no tenderness Continue PPI Elect to upper GI endoscopy to evaluation as an outpatient elective upper GI endoscopy to evaluation as an outpatient 04/03/17 20:10
--- NOTE | 2017-04-04 00:24 | DS ---
HISTORY OF PRESENT ILLNESS: The patient is a 76-year-old, seen and examined. He states he is doing much better. He still has cough, but much better than before. PHYSICAL EXAMINATION: VITAL SIGNS: He is afebrile, pulse 65, respirations 20, and blood pressure 132/83. LUNGS: Bilateral expiratory rhonchi posteriorly. HEART: S1 and S2 audible. ABDOMEN: Soft and nontender. No rebound. No guarding. NEUROLOGIC: The patient is awake, alert, oriented, communicative, and ambulatory. ASSESSMENT: 1. Chronic obstructive pulmonary disease exacerbation. 2. Questionable esophageal motility disorder. 3. Asthmatic bronchitis. 4. Bronchospasm. PLAN: The patient is clinically stable. We will discharge him home on tapering dose of steroids. The patient will be discharged home on Effient, aspirin, Levaquin and prednisone and give him Tessalon 200 three times a day and he will use nebulizer as needed.. Eddie Green MD
== END 2017-04-03 21:30 | disposition home or self-care (01) | DRG 192 ==
LOC: ED 11:26 → ERH 13:56 → 3RNO 16:14
PROVIDERS: ADMIT Internal Medicine; ATTEND Internal Medicine
PROC: 3E0F7GC Introduction of Other Therapeutic Substance into Respiratory Tract, Via Natural or Artificial Opening (ICD-10-PCS; principal; 2017-03-29)
DX: J44.1 Chronic obstructive pulmonary disease with (acute) exacerbation (principal); D64.9 Anemia, unspecified; J20.9 Acute bronchitis, unspecified; J44.0 Chronic obstructive pulmonary disease with (acute) lower respiratory infection; D86.9 Sarcoidosis, unspecified; R59.0 Localized enlarged lymph nodes; I10 Essential (primary) hypertension; I25.10 Atherosclerotic heart disease of native coronary artery without angina pectoris; E78.5 Hyperlipidemia, unspecified; K59.00 Constipation, unspecified; K21.9 Gastro-esophageal reflux disease without esophagitis; K29.70 Gastritis, unspecified, without bleeding; N40.0 Benign prostatic hyperplasia without lower urinary tract symptoms; Z95.5 Presence of coronary angioplasty implant and graft; Z87.891 Personal history of nicotine dependence; Z79.82 Long term (current) use of aspirin

== ENCOUNTER 2017-09-10 01:57 | Inpatient (IN) | payer MEDICARE ==
--- NOTE | 2017-09-10 02:14 | ED PDOC ---
Arrival/HPI - General Chief Complaint: Chest Pain Time Seen by Provider: 09/10/17 02:01 Historian: Patient, Family - Critical Care Critical Care Minutes: 30 minutes - History of Present Illness Narrative History of Present Illness (Text): 09/10/17 02:14 Francisco Javier Davidson is a 76 year old male, whose past medical history includes hypertension, CAD, COPD, sarcoidosis, and hyperlipidemia, who presents to the emergency department complaining of chest pain. Patient states he has been experiencing intermittent mid-sternal chest pain for the past few days. worsening tonight. Patient reports associated generalized weakness and dizziness tonight. notes patient was hypotensive at home prior to arrival. Patient denies any fevers, chills, chest pain, shortness of breath, abdominal pain, nausea, vomiting, diarrhea, back pain, neck pain, urinary symptoms, headache, dizziness, or any other complaint. PMD: Dr. Green Director Of Video Analytics: Dr. Maloney Symptom Onset: Gradual Symptom Course: Unchanged Activities at Onset: Light Context: Home Past Medical History - Provider Review Nursing Documentation Reviewed: Yes - Infectious Disease Hx of Infectious Diseases: None - Cardiac Hx Cardiac Disorders: Yes - Pulmonary Hx Chronic Obstructive Pulmonary Disease (COPD): Yes - Neurological Hx Neurological Disorder: No - HEENT Hx HEENT Disorder: Yes (NOSE BLEED) - Renal Hx Renal Disorder: No - Endocrine/Metabolic Hx Endocrine Disorders: No - Hematological/Oncological Hx Blood Disorders: No - Integumentary Hx Dermatological Disorder: No - Musculoskeletal/Rheumatological Hx Musculoskeletal Disorders: No Hx Falls: No - Gastrointestinal Hx Gastrointestinal Disorders: Yes Hx Gastroesophageal Reflux: Yes - Genitourinary/Gynecological Hx Genitourinary Disorders: Yes Hx Prostate Problems: Yes (BPH) - Psychiatric Hx Psychophysiologic Disorder: Yes (USED TO SMOKE CIGARETTES.PK1/2.,DRINKS SOCIALLY) Hx Emotional Abuse: No Hx Physical Abuse: No Hx Substance Use: No - Surgical History Hx Cardiac Catheterization: Yes - Anesthesia Hx Anesthesia: No Hx Anesthesia Reactions: No Hx Malignant Hyperthermia: No - Suicidal Assessment Feels Threatened In Home Enviroment: No Family/Social History - Physician Review Nursing Documentation Reviewed: Yes Family/Social History: Unknown Family HX Smoking Status: Former Smoker Hx Alcohol Use: No Hx Substance Use: No Hx Substance Use Treatment: No Allergies/Home Meds Allergies/Adverse Reactions: Allergies No Known Allergies Allergy (Verified 03/29/17 18:26) Home Medications: Home Meds Medication Instructions Recorded Confirmed Aspirin [Aspir 81] 81 mg PO QAM 03/02/12 09/10/17 Metoprolol Tartrate [Lopressor] 25 mg PO BID 12/17/15 09/10/17 Simvastatin 20 mg PO QAM 12/17/15 09/10/17 Omeprazole 20 mg PO DAILY 12/19/16 09/10/17 Prasugrel [Effient] 10 mg PO DAILY 12/30/16 09/10/17 Fluticasone/Vilanterol [Breo 200 mcg INH PRN PRN 03/29/17 09/10/17 Ellipta 200-25 Mcg INH] Montelukast [Singulair] 10 mg PO DAILY 03/29/17 09/10/17 Tamsulosin [Flomax] 0.4 mg PO DAILY 03/29/17 09/10/17 Review of Systems - Physician Review All systems were reviewed & negative as marked: Yes - Review of Systems Constitutional: Normal. absent: Fevers Eyes: Normal ENT: Normal Respiratory: Normal. absent: SOB, Cough Cardiovascular: Chest Pain Gastrointestinal: Normal. absent: Abdominal Pain, Diarrhea, Nausea, Vomiting Genitourinary Male: Normal. absent: Dysuria, Frequency, Hematuria, Urinary Output Changes Musculoskeletal: Normal. absent: Back Pain, Neck Pain Skin: Normal. absent: Rash Neurological: Dizziness. absent: Headache Endocrine: Normal Hemo/Lymphatic: Normal Psychiatric: Normal Physical Exam Vital Signs Reviewed: Yes Vital Signs Temp Pulse Resp BP Pulse Ox 09/10/17 04:00 67 20 125/71 98 09/10/17 02:09 98.3 F 68 18 140/85 99 Temperature: Afebrile Blood Pressure: Normal Pulse: Regular Respiratory Rate: Normal Appearance: Positive for: Well-Appearing, Non-Toxic, Comfortable Pain Distress: None Mental Status: Positive for: Alert and Oriented X 3 - Systems Exam Head: Present: Atraumatic, Normocephalic Pupils: Present: PERRL Extroacular Muscles: Present: EOMI Conjunctiva: Present: Normal Mouth: Present: Moist Mucous Membranes Neck: Present: Normal Range of Motion Respiratory/Chest: Present: Clear to Auscultation, Good Air Exchange. No: Respiratory Distress, Accessory Muscle Use Cardiovascular: Present: Regular Rate and Rhythm, Normal S1, S2. No: Murmurs Abdomen: No: Tenderness, Distention, Peritoneal Signs Rectal: Present: Melena (melanotic stool), Normal Rectal Tone, Other (Guaiac positive). No: Rectal Tenderness Back: Present: Normal Inspection Upper Extremity: Present: Normal Inspection. No: Cyanosis, Edema Lower Extremity: Present: Normal Inspection. No: Edema Neurological: Present: GCS=15, CN II-XII Intact, Speech Normal Skin: Present: Warm, Dry, Normal Color. No: Rashes Psychiatric: Present: Alert, Oriented x 3, Normal Insight, Normal Concentration Medical Decision Making ED Course and Treatment: 09/10/17 02:14 Impression: 76 year old male complaining of chest pain, dizziness, and generalized weakness. Plan: -- EKG -- CXR -- Labs, cardiac enzymes -- Aspirin -- Reassess and disposition Prior Visits: Notes and results from previous visits were reviewed. Progress Notes: Reviewed EKG, NSR at [address]-segment elevations or depressions, no T-wave inversions, normal intervals. 09/10/17 02:52 Labs noted, hemogloin: 6.8, hematocrit: 19.7. Rectal exam performed, Guaiac positive with melanotic stool. Blood type and screen ordered. 09/10/17 03:10 CXR reviewed, shows no acute processes. 09/10/17 03:22 Case discussed with medical malpractice paralegal and Dr. Montgomery, theatre program director. Agree to evaluate pt for possible ICU admission. 09/10/17 03:[address] Green, who is aware and agrees with plan. Accepts pt in to her service. 09/10/17 03:54 Pt. seen and evaluated by .Accepted for ICU admission. - Lab Interpretations Lab Results: 09/10/17 02:25 09/10/17 02:25 Lab Results 09/10/17 02:25: WBC 6.1 D, RBC 2.20 L, Hgb 6.8 L* D, Hct 19.7 L*, MCV 89.5 D, MCH 30.9, MCHC 34.5, RDW 13.1, Plt Count 203, MPV 8.9 09/10/17 02:25: Sodium 139, Potassium 4.0, Chloride 102, Carbon Dioxide 27, Anion Gap 14, BUN 18, Creatinine 1.0, Est GFR ( Amer) > 60, Est GFR (Non- Af Amer) > 60, Random Glucose 113 H, Calcium 8.7, Total Bilirubin 0.2, AST 46, ALT 39, Alkaline Phosphatase 61, Lactate Dehydrogenase 428, Total Creatine Kinase 192, Troponin I < 0.01, Total Protein 6.4, Albumin 3.6, Globulin 2.8, Albumin/Globulin Ratio 1.3 09/10/17 02:25: PT 10.8, INR 0.95, APTT 25.0 L I have reviewed the lab results: Yes - RAD Interpretation Radiology Orders: 09/10/17 02:16 CHEST PORTABLE [RAD] Stat 09/10/17 03:49 HEAD W/O CONTRAST [CT] Stat Health Physics Technician: ED Physician - EKG Interpretation Interpreted by ED Physician: Yes Type: 12 lead EKG - Medication Orders Current Medication Orders: Albuterol/Ipratropium (Duoneb 3 Mg/0.5 Mg (3 Ml) Ud) 3 ml IH Q4H PRN PRN Reason: Shortness of Breath Hydralazine HCl (Apresoline) 10 mg IVP Q6H PRN PRN Reason: Systolic Blood Pressure Pantoprazole Sodium (Protonix 40mg Ivpb) 40 mg in 100 mls @ 20 mls/hr IVPB .Q5H TIFF Sodium Chloride (Sodium Chloride 0.9%) 1,000 mls @ 100 mls/hr IV .Q10H TIFF Discontinued Medications Aspirin (Ecotrin) 81 mg PO STAT STA Stop: 09/10/17 02:24 Last Admin: 09/10/17 02:31 Dose: 81 mg Pantoprazole Sodium (Protonix Inj) 40 mg IVP ONCE STA Stop: 09/10/17 02:52 Last Admin: 09/10/17 03:18 Dose: 40 mg IVP Administration Document 09/10/17 03:18 MIRTA (Rec: 09/10/17 03:18 MIRTA [id number]) Charges for Administration # of IVP Administrations 1 - Scribe Statement The provider has reviewed the documentation as recorded by the Razia Cho Provider Scribe Attestation: All medical record entries made by the Scribe were at my direction and personally dictated by me. I have reviewed the chart and agree that the record accurately reflects my personal performance of the history, physical exam, medical decision making, and the department course for this patient. I have also personally directed, reviewed, and agree with the discharge instructions and disposition. Disposition/Present on Arrival - Present on Arrival Any Indicators Present on Arrival: No History of DVT/PE: No History of Uncontrolled Diabetes: No Urinary Catheter: No History of Decub. Ulcer: No History Surgical Site Infection Following: None - Disposition Have Diagnosis and Disposition been Completed?: Yes Diagnosis: Chest pain, GI bleed Disposition: HOSPITALIZED Disposition Time: 03:57 Patient Plan: ICU Patient Problems: Current Active Problems Problem Status Onset Chest pain Acute GI bleed Acute Condition: STABLE
[2017-09-10 02:37] LABS: MEAN CELL VOLUME 89.5 fl (80.0-105.0); MEAN CORPUSCULAR HEMOGLOBIN 30.9 pg (25.0-35.0); MEAN CORPUSCULAR HGB CONC 34.5 g/dl (31.0-37.0); MEAN PLATELET VOLUME 8.9 fl (7.0-11.0); RBC 2.2 10^6/uL (3.5-6.1); RED CELL DISTRIBUTION WIDTH 13.1 % (11.5-14.5); WHITE BLOOD COUNT 6.1 10^3/ul (4.5-11.0)
[2017-09-10 02:39] LABS: HEMOGLOBIN 6.8 g/dL (14.0-18.0)
[2017-09-10 02:47] LABS: INR 0.95 (0.93-1.08); PROTHROMBIN TIME 10.8 SECONDS (9.4-12.5)
[2017-09-10 02:48] LABS: ALB/GLOB RATIO 1.3 (1.1-1.8); ALBUMIN 3.6 g/dL (3.0-4.8); ALT/SGPT 39 U/L (7-56); AST/SGOT 46 U/L (17-59); BLOOD UREA NITROGEN 18 mg/dL (7-21); CALCIUM 8.7 mg/dL (8.4-10.5); GFR AFRICAN-AMERICAN > 60; GFR NON-AFRICAN AMERICAN > 60
[2017-09-10 03:00] LABS: TROPONIN I < 0.01 ng/mL
[2017-09-10] MEDS ORDERED: Albuterol-Ipratrop 3 mg / 0.5 (3 ml) UD IH PRN (04:06)
--- NOTE | 2017-09-10 04:34 | CP.PCM.CON ---
<Julianne Miranda - Last Filed: 09/10/17 05:01> History of Present Illness - History of Present Illness History of Present Illness: ICU Consult note for Dr. Montgomery 76yo male PMHx CAD s/p 5 stents on effient and ASA, HTN, HLD, COPD, BPH, sarcoidosis presents with chest pain and generalized weakness. Patient reported he was experiencing intermittent mid-sternal chest pain for the past 4 days which was worse tonight. He also complained of back pain and leg weakness with left finger numbness for the past 4 days. Patient also reported melena on two occasions last week when his stool was loose [once on Sunday and once on Sunday ] with no BM inbetween days. He denied any bright red blood per rectum. Patient denied any LOC, fall, headaches, fever, chills, palpitations, SOB, cough, abd pain, vomiting, dysuria, hematuria, swelling in his legs b/l. He did complain of dizziness and some nausea. Patient's last meal was the night prior to admission around 7pm. Patient was found to have Hgb 6.8 with guaic positive stool in the ED. PMHx: CAD s/p 5 stents (most recently had [address] Pal in December 2016), HTN, HLD, COPD, BPH, sarcoidosis PSurgHx: cardiac stents PProcedures: EGD and Colonoscopy [address] Patel Meds: pls see chart ALL: NKDA SocHx: prior tobacco use 20 years ago- used to smoke 2ppd for 10 years, occasional EtOH, denies drug use FamHx: hx of CVA in parents? 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 Green Manager Nuclear: Dr. Maloney Review of Systems - Review of Systems All systems: reviewed and no additional remarkable complaints except Review of Systems: as per HPI Past Patient History - Infectious Disease Hx of Infectious Diseases: None - Past Social History Smoking Status: Former Smoker - CARDIAC Hx Cardiac Disorders: Yes - PULMONARY Hx Chronic Obstructive Pulmonary Disease (COPD): Yes - NEUROLOGICAL Hx Neurological Disorder: No - HEENT Hx HEENT Problems: Yes (NOSE BLEED) - RENAL Hx Chronic Kidney Disease: No - ENDOCRINE/METABOLIC Hx Endocrine Disorders: No - HEMATOLOGICAL/ONCOLOGICAL Hx Blood Disorders: No - INTEGUMENTARY Hx Dermatological Problems: No - MUSCULOSKELETAL/RHEUMATOLOGICAL Hx Musculoskeletal Disorders: No Hx Falls: No - GASTROINTESTINAL Hx Gastrointestinal Disorders: Yes Hx Gastroesophageal Reflux: Yes - GENITOURINARY/GYNECOLOGICAL Hx Genitourinary Disorders: Yes Hx Prostate Problems: Yes (BPH) - PSYCHIATRIC Hx Psychophysiologic Disorder: Yes (USED TO SMOKE CIGARETTES.PK1/2.,DRINKS SOCIALLY) Hx Emotional Abuse: No Hx Physical Abuse: No Hx Substance Use: No - SURGICAL HISTORY Hx Cardiac Catheterization: Yes - ANESTHESIA Hx Anesthesia: No Hx Anesthesia Reactions: No Hx Malignant Hyperthermia: No Meds Allergies/Adverse Reactions: Allergies Allergy/AdvReac Type Severity Reaction Status Date / Time No Known Allergies Allergy Verified 03/29/17 18:26 - Medications Medications: Current Medications Albuterol/Ipratropium (Duoneb 3 Mg/0.5 Mg (3 Ml) Ud) 3 ml IH Q4H PRN PRN Reason: Shortness of Breath Hydralazine HCl (Apresoline) 10 mg IVP Q6H PRN PRN Reason: Systolic Blood Pressure Pantoprazole Sodium (Protonix 40mg Ivpb) 40 mg in 100 mls @ 20 mls/hr IVPB .Q5H TIFF Sodium Chloride (Sodium Chloride 0.9%) 1,000 mls @ 100 mls/hr IV .Q10H TIFF Physical Exam - Constitutional Appears: Non-toxic, No Acute Distress - Head Exam Head Exam: ATRAUMATIC, NORMAL INSPECTION, NORMOCEPHALIC - Eye Exam Eye Exam: EOMI, Normal appearance, PERRL. absent: Conjunctival injection, Scleral icterus Pupil Exam: NORMAL ACCOMODATION - ENT Exam ENT Exam: Mucous Membranes Moist - Neck Exam Neck exam: Positive for: Full Rom, Normal Inspection - Respiratory Exam Respiratory Exam: Clear to Auscultation Bilateral, NORMAL BREATHING PATTERN. absent: Accessory Muscle Use, Rales, Rhonchi, Wheezes, Respiratory Distress - Cardiovascular Exam Cardiovascular Exam: REGULAR RHYTHM, RRR, +S1, +S2. absent: Systolic Murmur - GI/Abdominal Exam GI & Abdominal Exam: Normal Bowel Sounds, Soft. absent: Distended, Firm, Guarding, Rigid, Tenderness - Rectal Exam Rectal Exam: Deferred - Extremities Exam Extremities exam: Positive for: normal capillary refill, normal inspection, pedal pulses present. Negative for: pedal edema - Neurological Exam Neurological exam: Alert, CN II-XII Intact, Oriented x3 - Psychiatric Exam Psychiatric exam: Normal Affect, Normal Mood - Skin Skin Exam: Dry, Intact, Normal Color, Warm Results - Vital Signs Recent Vital Signs: Last Vital Signs Temp 98.3 F 09/10/17 02:09 Pulse 67 09/10/17 04:00 Resp 20 09/10/17 04:00 BP 125/71 09/10/17 04:00 Pulse Ox 98 09/10/17 04:00 - Labs Result Diagrams: 09/10/17 02:25 09/10/17 02:25 Assessment & Plan - Assessment and Plan (Free Text) Assessment: 76yo male PMHx CAD s/p 5 stents on effient and ASA, HTN, HLD, COPD, BPH, sarcoidosis presents with chest pain and generalized weakness found to have Hgb 6.8 with guaic positive stool in the ED. Patient kept NPO and started on protonix gtt for suspected UGIB and transferred to MICU for further monitoring. Plan: Neuro -CT head: negative -no acute complaints and patient is ao x 3 -weakness likely secondary to acute anemia with no focal deficits -HoB above 30 degrees -maintain normothermia Cardio -chest pain resolved -hold ASA and effient in light of suspected upper GI bleed -maintain normotension -Hydralazine prn for high BP -f/u troponin x 2, TSH, Lipid panel, BNP Respiratory -no acute issues -maintain SpO2 > 90% -on 2L NC -Duoneb prn GI -NPO -likely UGIB in light of melena -protonix gtt -GI Dr. Alejandra consulted Renal -strict Is and Os -no acute issues Heme/Onc -acute anemia likely secondary to UGIB -4U PRBC ordered- transfuse patient -monitor for bleeding and monitor vitals closely -f/u venous duplex b/l LE Endo -no acute issues -maintain euglycemia GI ppx: protonix gtt VTE ppx: anticaog c/i Diet: NPO Dispo: monitor in MICU Discussed with Dr. Valentina Miranda PGY2 <Valentina BROWN,Teto - Last Filed: 09/10/17 10:26> Meds - Medications Medications: Current Medications Albuterol/Ipratropium (Duoneb 3 Mg/0.5 Mg (3 Ml) Ud) 3 ml IH Q4H PRN PRN Reason: Shortness of Breath Hydralazine HCl (Apresoline) 10 mg IVP Q6H PRN PRN Reason: Systolic Blood Pressure Pantoprazole Sodium (Protonix 40mg Ivpb) 40 mg in 100 mls @ 20 mls/hr IVPB .Q5H TIFF Last Admin: 09/10/17 09:08 Dose: 20 mls/hr Sodium Chloride (Sodium Chloride 0.9%) 1,000 mls @ 100 mls/hr IV .Q10H TIFF Results - Vital Signs Recent Vital Signs: Last Vital Signs Temp 98 F 09/10/17 09:17 Pulse 60 09/10/17 09:17 Resp 14 09/10/17 09:17 BP 130/70 09/10/17 09:17 Pulse Ox 100 09/10/17 09:00 - Labs Result Diagrams: 09/10/17 08:30 09/10/17 08:30 Labs: Laboratory Results - last 24 hr 09/10/17 09/10/17 09/10/17 04:00 06:01 08:30 WBC 4.9 RBC 2.59 L Hgb 7.7 L Hct 23.0 L MCV 88.8 MCH 29.7 MCHC 33.5 RDW 13.3 Plt Count 181 MPV 9.2 Gran % 59.2 Lymph % (Auto) 29.6 [place] % (Auto) 9.0 H Eos % (Auto) 1.8 Baso % (Auto) 0.4 Gran # 2.88 Lymph # (Auto) 1.4 [place] # (Auto) 0.4 Eos # (Auto) 0.1 Baso # (Auto) 0.02 Sodium Potassium Chloride Carbon Dioxide Anion Gap BUN Creatinine Est GFR ( Amer) Est GFR (Non-Af Amer) POC Glucose (mg/dL) 107 Random Glucose Calcium Phosphorus Magnesium Total Bilirubin AST ALT Alkaline Phosphatase Lactate Dehydrogenase Total Creatine Kinase Troponin I NT-Pro-B Natriuret Pep Total Protein Albumin Globulin Albumin/Globulin Ratio Triglycerides Cholesterol LDL Cholesterol Direct HDL Cholesterol TSH 3rd Generation Blood Type O POSITIVE Antibody Screen Negative Crossmatch See Detail BBK History Checked Patient has bt 09/10/17 09/10/17 08:30 08:30 WBC RBC Hgb Hct MCV MCH MCHC RDW Plt Count MPV Gran % Lymph % (Auto) [place] % (Auto) Eos % (Auto) Baso % (Auto) Gran # Lymph # (Auto) [place] # (Auto) Eos # (Auto) Baso # (Auto) Sodium 141 Potassium 4.5 Chloride 105 Carbon Dioxide 27 Anion Gap 13 BUN 15 Creatinine 0.9 Est GFR ( Amer) > 60 Est GFR (Non-Af Amer) > 60 POC Glucose (mg/dL) Random Glucose 92 Calcium 8.5 Phosphorus 4.3 Magnesium 1.8 Total Bilirubin 0.7 AST 29 ALT 36 Alkaline Phosphatase 47 Lactate Dehydrogenase 363 Total Creatine Kinase 149 Troponin I < 0.01 NT-Pro-B Natriuret Pep 206 Total Protein 5.8 Albumin 3.1 Globulin 2.7 Albumin/Globulin Ratio 1.2 Triglycerides 68 Cholesterol 108 L LDL Cholesterol Direct 55 HDL Cholesterol 37 TSH 3rd Generation 2.08 Blood Type Antibody Screen Crossmatch BBK History Checked Attending/Attestation - Attestation I have personally seen and examined this patient.: Yes I have fully participated in the care of the patient.: Yes I have reviewed all pertinent clinical information: Yes Notes (Text): -I agree with the above ICU consult note completed by the resident physician, with the following additions and/or changes: -The patient is a 76 year old man with a history of CAD (s/p PCI and on chronic Effient and ASA), HTN, HLD, COPD, BPH and sarcoidosis, who presents with acute exertional chest pain, generalized weakness and 2 episodes of melena within the past 4 days. He denies orthopnea, PND, diaphoresis, F/C, N/V, cough or SOB. He reports intermittent dizziness but denies syncope or altered mentation. ED labs showed a Hgb=6.8 (compared to his last Hgb of 12.7 from 03/2017). Likely etiology is UGIB due to side effect of Effient. Will therefore hold ASA and Effient for now and transfuse 3-4units of PRBCs. He will be kept NPO and started on IVFs and Protonix drip. PRN IV Hydralazine for BP control while patient is NPO. GI has been consulted and serial CBCs will monitored Q6hrs. EKG done in the ED shows no dynamic changes compared to patients previous ( from 2017). Serial trops and EKGs ordered (as well as TSH, HgA1c and lipid panel). Critical Care Time Spent: 45-60 minutes
--- NOTE | 2017-09-10 04:35 | CT ---
EXAM: CT Head Without Intravenous Contrast CLINICAL HISTORY: 76 years old, male; Signs and symptoms; Dizziness; Additional info: Dizziness; Anemia TECHNIQUE: Axial computed tomography images of the head/brain without intravenous contrast. All CT scans at this facility use one or more dose reduction techniques, viz.: automated exposure control; ma/kV adjustment per patient size (including targeted exams where dose is matched to indication; i.e. head); or iterative reconstruction technique. Coronal and sagittal reformatted images were created and reviewed. COMPARISON: CT - HEAD W/O CONTRAST 2016-12-30 12:17 FINDINGS: Brain: Mild atrophy. No intracranial hemorrhage. No mass. No definite edema. Ventricles: No hydrocephalus. Bones/joints: No acute fracture. Soft tissues: Unremarkable. Vasculature: Mild atherosclerotic disease of intracranial arteries. Sinuses: Scattered minimal mucosal thickening. Mastoid air cells: No mastoid effusion. Orbits: Unremarkable as visualized. IMPRESSION: 1. No definite acute intracranial abnormality. 2. Incidental/non-acute findings are described above.
[2017-09-10] MEDS: Pantoprazole 40mg/100mL NS 40 MG/100 ML BAG IVPB SCH ×5 (05:18→23:49)
[2017-09-10 06:18] VITALS: BMI 26.4
--- NOTE | 2017-09-10 08:26 | CP.CCUPN ---
<Charli Craft - Last Filed: 09/10/17 12:18> CCU Subjective - Physician Review Subjective (Free Text): 09/10/17 12:18 Patient seen and examined at bedside in ICU. Currently receiving 2nd unit pRBCs during exam. Reports resolution of chest pain. BP stable and not grossly tachycardic on monitor/exam. Denies chest pain, shortness of breath, nausea, emesis, new episode of melanotic stool since arrival, or hematemesis/ hematuria/BRBPR. CCU Objective - Vital Signs / Intake & Output Vital Signs (Last 4 hours): Vital Signs Temp Pulse Pulse Resp BP Pulse Ox 09/10/17 08:17 97.5 F L 60 16 134/70 09/10/17 07:50 60 15 100 09/10/17 07:40 58 L 15 100 09/10/17 07:30 57 L 14 100 09/10/17 07:20 56 L 15 100 09/10/17 07:10 55 L 15 100 09/10/17 07:00 58 L 14 131/72 100 09/10/17 06:50 57 L 15 100 09/10/17 06:40 56 L 14 100 09/10/17 06:30 58 L 14 100 09/10/17 06:20 58 L 15 100 09/10/17 06:10 59 L 15 100 09/10/17 06:00 64 19 113/54 L 100 09/10/17 05:55 97.6 F 66 58 L 16 140/66 09/10/17 05:50 58 L 15 100 09/10/17 05:40 59 L 15 100 09/10/17 05:30 60 17 100 09/10/17 05:20 59 L 15 100 09/10/17 05:15 97.8 F 09/10/17 05:10 61 11 L 100 09/10/17 05:00 69 20 143/75 100 09/10/17 04:50 68 15 100 09/10/17 04:40 64 18 96 09/10/17 04:35 117/57 L 98 09/10/17 04:32 99 09/10/17 04:30 67 20 125/71 98 Intake and Output (Last 8hrs): Intake & Output 09/09/17 09/10/17 09/10/17 22:59 06:59 14:59 Intake Total 100 0 Output Total 300 Balance -200 0 Weight 74.48 kg Intake: IV 100 Right Antecubital 100 Oral 0 Blood Product 0 Red Blood Cells Cpd As1 0 Lr Unit [id number] Output: Urine 300 Urine, Voided 300 Other: # Bowel Movements 0 - Physical Exam Head: Positive for: Atraumatic, Normocephalic. Negative for: Tenderness, Contusion, Swelling, Ecchymosis Pupils: Positive for: PERRL. Negative for: Non-Reactive, Pinpoint Extroacular Muscles: Positive for: EOMI. Negative for: Gaze Palsy, Entrapment Conjunctiva: Positive for: Normal, Other (mild pallor). Negative for: Injected , Icteric Mouth: Positive for: Moist Mucous Membranes, Normal Lips, Normal Tounge, Normal Teeth. Negative for: Dry, Drooling Pharnyx: Positive for: Normal, Other (no bleeding sites appreciated). Negative for: ERYTHEMA, EXUDATE Nose (External): Positive for: Atraumatic. Negative for: Abrasion, Laceration, Lesions Nose (Internal): Positive for: Normal Inspection, No Active Bleeding. Negative for: Epistaxis Neck: Positive for: Normal Range of Motion. Negative for: JVD Respiratory/Chest: Positive for: Clear to Auscultation, Good Air Exchange. Negative for: Respiratory Distress, Accessory Muscle Use, Wheezes, Decreased Breath Sounds, Rales, Retracting, Rhonchi, Tachypneic, Tender to Palpation Cardiovascular: Positive for: Regular Rate and Rhythm, Normal S1, S2, Peripheal Pulses Present (+1 radial and dorsalis pedis bilaterally). Negative for: Murmurs, Irregular Rhythm, Tachycardic, Bradycardic Abdomen: Positive for: Normal Bowel Sounds. Negative for: Tenderness, Distention, Peritoneal Signs, Feeding Tubes, Mass/Organomegaly Upper Extremity: Positive for: Normal Inspection, Normal ROM, NORMAL PULSES. Negative for: Cyanosis, Edema, Tenderness, Swelling, Erythema, Deformity Lower Extremity: Positive for: Normal Inspection, Edema (+1-2 pitting edema bilaterally from foot to ankles (SCDs above)), NORMAL PULSES, Normal ROM. Negative for: CALF TENDERNESS, Cyanosis, Tenderness, Erythema, Deformity Neurological: Positive for: GCS=15, Speech Normal, Motor Func Grossly Intact, Normal Sensory Function Skin: Positive for: Warm, Dry, Normal Color. Negative for: Rashes Psychiatric: Positive for: Alert, Oriented x 3, Normal Insight, Normal Concentration, Normal Affect, Normal Mood - Medications Active Medications: Active Medications Generic Name Dose Route Start Last Admin Trade Name Freq PRN Reason Stop Dose Admin Albuterol/Ipratropium 3 ml 09/10/17 04:06 Duoneb 3 Mg/0.5 Mg (3 Ml) Ud IH Q4H PRN Shortness of Breath Hydralazine HCl 10 mg 09/10/17 04:07 Apresoline IVP Q6H PRN Systolic Blood Pressure Pantoprazole Sodium 40 mg in 100 mls @ 20 mls/hr 09/10/17 04:00 09/10/17 05: 18 Protonix 40mg Ivpb IVPB 20 mls/hr .Q5H TIFF Administration Sodium Chloride 1,000 mls @ 100 mls/hr 09/10/17 04:15 Sodium Chloride 0.9% IV .Q10H TIFF - Patient Studies Lab Studies: Lab Studies 09/10/17 09/10/17 Range/Units 06:01 04:00 POC Glucose (mg/dL) 107 (65-110) mg/dL Blood Type O POSITIVE Antibody Screen Negative Crossmatch See Detail BBK History Checked Patient has bt Laboratory Results - last 24 hr 09/10/17 09/10/17 04:00 06:01 POC Glucose (mg/dL) 107 Blood Type O POSITIVE Antibody Screen Negative Crossmatch See Detail BBK History Checked Patient has bt EKG/Cardiology Studies: Cardiology / EKG Studies 09/10/17 06:00 EKG [ELECTROCARDIOGRAM] Q6H Comment: Reason For Exam: rule out ACS 09/10/17 12:00 EKG [ELECTROCARDIOGRAM] Q6H Comment: Reason For Exam: rule out ACS Fingerstick Blood Sugar Results: 107 Review of Systems - Review of Systems All systems: reviewed and no additional remarkable complaints except (as per HPI ) Assessment/Plan - Assessment and Plan (Free Text) Assessment: This is a 76 yo AA M with PMH CAD s/p 5 stents (on effient and ASA), HTN, HLD, COPD, BPH, and sarcoidosis who presented with chest pain and generalized weakness, and was found to have Hgb 6.8 with guaic positive stool in the ED. He remains in the ICU, on a protonix drip, being transfused a second unit of pRBCs, pending GI eval and recs. Plan: Neuro: -CT head: negative for acute intracranial process -awake, alert, oriented to self/location/year -weakness likely secondary to acute anemia with no focal deficits, moving all extremities spontaneously -HoB above 30 degrees -maintain normothermia Cardio -chest pain resolved, no further incidence -continue holding ASA and effient in light of suspected upper GI bleed -maintain MAP > 65, currently maintain BP well -Hydralazine prn for high BP -trop x1 negative, pending 2 more -TSH wnl, Lipid panel notable for HDL 37 otherwise wnl, BNP not elevated -Hgb improved to 7.7 (from 6.8) after 1st unit pRBCs, receiving 2nd unit at time of exam, will obtain repeat CBC after it finishes and f/u -Cardio consulted, appreciate all recs Respiratory -satting well on 2L NC, maintain SpO2 > 90% -Duoneb prn given hx COPD, but not acutely wheezing/dyspnic at this time, so no need for scheduled nebs or steroids GI -NPO and holding antiplatelets due to likely upper GI bleed -protonix gtt -GI consulted, appreciate all recs Renal -strict Is and Os -no acute issues -monitor and replete electrolytes as needed Heme/Onc -acute anemia likely secondary to UGIB, Hgb 6.8 on arrival -Hgb improved to 7.7 (from 6.8) after 1st unit pRBCs, receiving 2nd unit at time of exam, will obtain repeat CBC after it finishes and f/u -2 units pRBCs transfused, 2 held on standby -monitor for bleeding and monitor vitals closely -f/u venous duplex b/l LE Endo -no acute issues -maintain euglycemia (BG 140-180 as per NICE-Sugar trial) ID: -afebrile, no leukocytosis -no indications for abx at this time Dispo: ICU, pending GI eval and recs, pending repeat CBC to reassess Hgb after completing 2nd unit pRBCs, remains NPO FEN: NPO, NS at 100cc/hr Access: Peripheral IVs Consults: GI, Cardio Ppx: Protonix drip covers GI, SCDs for DVT (AC contraindicated due to suspected GI bleed) Patient seen, reviewed, and discussed with attending, Dr. Chavez <Ezio Chavez - Last Filed: 09/10/17 12:40> CCU Objective - Vital Signs / Intake & Output Vital Signs (Last 4 hours): Vital Signs Temp Pulse Resp BP Pulse Ox 09/10/17 11:40 65 17 100 09/10/17 11:37 98.3 F 62 15 125/71 09/10/17 11:34 65 17 125/71 100 09/10/17 11:30 60 15 100 09/10/17 11:20 62 16 100 09/10/17 11:10 65 19 100 09/10/17 11:00 61 15 139/76 100 09/10/17 10:50 65 17 100 09/10/17 10:40 84 17 100 09/10/17 10:30 59 L 16 100 09/10/17 10:20 65 15 100 09/10/17 10:10 58 L 16 100 09/10/17 10:00 62 16 127/69 100 09/10/17 09:50 57 L 14 100 09/10/17 09:40 65 20 100 09/10/17 09:30 62 16 100 09/10/17 09:20 57 L 16 100 09/10/17 09:17 98 F 60 14 130/70 09/10/17 09:10 57 L 15 100 09/10/17 09:00 57 L 17 130/70 100 09/10/17 08:50 59 L 22 100 09/10/17 08:45 78 132/80 100 09/10/17 08:40 67 22 100 Intake and Output (Last 8hrs): Intake & Output 09/09/17 09/10/17 09/10/17 22:59 06:59 14:59 Intake Total 100 50 Output Total 300 Balance -200 50 Weight 164 lb 3.2 oz Intake: IV 100 Right Antecubital 100 Oral 0 Blood Product 0 Red Blood Cells Cpd As1 0 Lr Unit [id number] Other 50 Red Blood Cells Cpd As1 50 Lr Unit [id number] Output: Urine 300 Urine, Voided 300 Other: # Bowel Movements 0 - Medications Active Medications: Active Medications Generic Name Dose Route Start Last Admin Trade Name Freq PRN Reason Stop Dose Admin Albuterol/Ipratropium 3 ml 09/10/17 04:06 Duoneb 3 Mg/0.5 Mg (3 Ml) Ud IH Q4H PRN Shortness of Breath Hydralazine HCl 10 mg 09/10/17 04:07 Apresoline IVP Q6H PRN Systolic Blood Pressure Pantoprazole Sodium 40 mg in 100 mls @ 20 mls/hr 09/10/17 04:00 09/10/17 09: 08 Protonix 40mg Ivpb IVPB 20 mls/hr .Q5H TIFF Administration Sodium Chloride 1,000 mls @ 100 mls/hr 09/10/17 04:15 Sodium Chloride 0.9% IV .Q10H TIFF Morphine Sulfate 2 mg 09/10/17 11:11 09/10/17 11:50 Morphine IVP 2 mg Q4H PRN Administration Pain, moderate (4-7) - Patient Studies Lab Studies: Lab Studies 09/10/17 09/10/17 09/10/17 Range/Units 12:00 12:00 08:30 WBC 4.7 (4.5-11.0) 10^3/ul RBC 3.00 L (3.5-6.1) 10^6/uL Hgb 9.0 L (14.0-18.0) g/dL Hct 26.8 L (42.0-52.0) % MCV 89.3 (80.0-105.0) fl MCH 30.0 (25.0-35.0) pg MCHC 33.6 (31.0-37.0) g/dl RDW 13.7 (11.5-14.5) % Plt Count 171 (120.0-450.0) 10^3/uL MPV 9.0 (7.0-11.0) fl Gran % 59.4 (50.0-68.0) % Lymph % (Auto) 27.4 (22.0-35.0) % [place] % (Auto) 9.8 H (1.0-6.0) % Eos % (Auto) 3.0 (1.5-5.0) % Baso % (Auto) 0.4 (0.0-3.0) % Gran # 2.79 (1.4-6.5) Lymph # (Auto) 1.3 (1.2-3.4) [place] # (Auto) 0.5 (0.1-0.6) Eos # (Auto) 0.1 (0.0-0.7) Baso # (Auto) 0.02 (0.0-2.0) K/mm3 Sodium (132-148) mmol/L Potassium (3.6-5.0) mmol/L Chloride (98-107) mmol/L Carbon Dioxide (21-33) mmol/L Anion Gap (10-20) BUN (7-21) mg/dL Creatinine (0.8-1.5) mg/dl Est GFR ( Amer) Est GFR (Non-Af Amer) POC Glucose (mg/dL) (65-110) mg/dL Random Glucose (70-110) mg/dL Calcium (8.4-10.5) mg/dL Phosphorus (2.5-4.5) mg/dL Magnesium (1.7-2.2) mg/dL Total Bilirubin (0.2-1.3) mg/dL AST (17-59) U/L ALT (7-56) U/L Alkaline Phosphatase (38-126) U/L Lactate Dehydrogenase 369 (333-699) U/L Total Creatine Kinase 139 (35-230) U/L Troponin I < 0.01 ng/mL NT-Pro-B Natriuret Pep (0-450) pg/mL Total Protein (5.8-8.3) g/dL Albumin (3.0-4.8) g/dL Globulin gm/dL Albumin/Globulin Ratio (1.1-1.8) Triglycerides (35-160) mg/dL Cholesterol (130-200) mg/dL LDL Cholesterol Direct (0-129) mg/dL HDL Cholesterol (29-60) mg/dL TSH 3rd Generation 2.08 (0.46-4.68) mIU/mL Blood Type Antibody Screen Crossmatch BBK History Checked 09/10/17 09/10/17 09/10/17 Range/Units 08:30 08:30 06:01 WBC 4.9 (4.5-11.0) 10^3/ul RBC 2.59 L (3.5-6.1) 10^6/uL Hgb 7.7 L (14.0-18.0) g/dL Hct 23.0 L (42.0-52.0) % MCV 88.8 (80.0-105.0) fl MCH 29.7 (25.0-35.0) pg MCHC 33.5 (31.0-37.0) g/dl RDW 13.3 (11.5-14.5) % Plt Count 181 (120.0-450.0) 10^3/uL MPV 9.2 (7.0-11.0) fl Gran % 59.2 (50.0-68.0) % Lymph % (Auto) 29.6 (22.0-35.0) % [place] % (Auto) 9.0 H (1.0-6.0) % Eos % (Auto) 1.8 (1.5-5.0) % Baso % (Auto) 0.4 (0.0-3.0) % Gran # 2.88 (1.4-6.5) Lymph # (Auto) 1.4 (1.2-3.4) [place] # (Auto) 0.4 (0.1-0.6) Eos # (Auto) 0.1 (0.0-0.7) Baso # (Auto) 0.02 (0.0-2.0) K/mm3 Sodium 141 (132-148) mmol/L Potassium 4.5 (3.6-5.0) mmol/L Chloride 105 (98-107) mmol/L Carbon Dioxide 27 (21-33) mmol/L Anion Gap 13 (10-20) BUN 15 (7-21) mg/dL Creatinine 0.9 (0.8-1.5) mg/dl Est GFR ( Amer) > 60 Est GFR (Non-Af Amer) > 60 POC Glucose (mg/dL) 107 (65-110) mg/dL Random Glucose 92 (70-110) mg/dL Calcium 8.5 (8.4-10.5) mg/dL Phosphorus 4.3 (2.5-4.5) mg/dL Magnesium 1.8 (1.7-2.2) mg/dL Total Bilirubin 0.7 (0.2-1.3) mg/dL AST 29 (17-59) U/L ALT 36 (7-56) U/L Alkaline Phosphatase 47 (38-126) U/L Lactate Dehydrogenase 363 (333-699) U/L Total Creatine Kinase 149 (35-230) U/L Troponin I < 0.01 ng/mL NT-Pro-B Natriuret Pep 206 (0-450) pg/mL Total Protein 5.8 (5.8-8.3) g/dL Albumin 3.1 (3.0-4.8) g/dL Globulin 2.7 gm/dL Albumin/Globulin Ratio 1.2 (1.1-1.8) Triglycerides 68 (35-160) mg/dL Cholesterol 108 L (130-200) mg/dL LDL Cholesterol Direct 55 (0-129) mg/dL HDL Cholesterol 37 (29-60) mg/dL TSH 3rd Generation (0.46-4.68) mIU/mL Blood Type Antibody Screen Crossmatch BBK History Checked 09/10/17 Range/Units 04:00 WBC (4.5-11.0) 10^3/ul RBC (3.5-6.1) 10^6/uL Hgb (14.0-18.0) g/dL Hct (42.0-52.0) % MCV (80.0-105.0) fl MCH (25.0-35.0) pg MCHC (31.0-37.0) g/dl RDW (11.5-14.5) % Plt Count (120.0-450.0) 10^3/uL MPV (7.0-11.0) fl Gran % (50.0-68.0) % Lymph % (Auto) (22.0-35.0) % [place] % (Auto) (1.0-6.0) % Eos % (Auto) (1.5-5.0) % Baso % (Auto) (0.0-3.0) % Gran # (1.4-6.5) Lymph # (Auto) (1.2-3.4) [place] # (Auto) (0.1-0.6) Eos # (Auto) (0.0-0.7) Baso # (Auto) (0.0-2.0) K/mm3 Sodium (132-148) mmol/L Potassium (3.6-5.0) mmol/L Chloride (98-107) mmol/L Carbon Dioxide (21-33) mmol/L Anion Gap (10-20) BUN (7-21) mg/dL Creatinine (0.8-1.5) mg/dl Est GFR ( Amer) Est GFR (Non-Af Amer) POC Glucose (mg/dL) (65-110) mg/dL Random Glucose (70-110) mg/dL Calcium (8.4-10.5) mg/dL Phosphorus (2.5-4.5) mg/dL Magnesium (1.7-2.2) mg/dL Total Bilirubin (0.2-1.3) mg/dL AST (17-59) U/L ALT (7-56) U/L Alkaline Phosphatase (38-126) U/L Lactate Dehydrogenase (333-699) U/L Total Creatine Kinase (35-230) U/L Troponin I ng/mL NT-Pro-B Natriuret Pep (0-450) pg/mL Total Protein (5.8-8.3) g/dL Albumin (3.0-4.8) g/dL Globulin gm/dL Albumin/Globulin Ratio (1.1-1.8) Triglycerides (35-160) mg/dL Cholesterol (130-200) mg/dL LDL Cholesterol Direct (0-129) mg/dL HDL Cholesterol (29-60) mg/dL TSH 3rd Generation (0.46-4.68) mIU/mL Blood Type O POSITIVE Antibody Screen Negative Crossmatch See Detail BBK History Checked Patient has bt Laboratory Results - last 24 hr 09/10/17 09/10/17 09/10/17 04:00 06:01 08:30 WBC 4.9 RBC 2.59 L Hgb 7.7 L Hct 23.0 L MCV 88.8 MCH 29.7 MCHC 33.5 RDW 13.3 Plt Count 181 MPV 9.2 Gran % 59.2 Lymph % (Auto) 29.6 [place] % (Auto) 9.0 H Eos % (Auto) 1.8 Baso % (Auto) 0.4 Gran # 2.88 Lymph # (Auto) 1.4 [place] # (Auto) 0.4 Eos # (Auto) 0.1 Baso # (Auto) 0.02 Sodium Potassium Chloride Carbon Dioxide Anion Gap BUN Creatinine Est GFR ( Amer) Est GFR (Non-Af Amer) POC Glucose (mg/dL) 107 Random Glucose Calcium Phosphorus Magnesium Total Bilirubin AST ALT Alkaline Phosphatase Lactate Dehydrogenase Total Creatine Kinase Troponin I NT-Pro-B Natriuret Pep Total Protein Albumin Globulin Albumin/Globulin Ratio Triglycerides Cholesterol LDL Cholesterol Direct HDL Cholesterol TSH 3rd Generation Blood Type O POSITIVE Antibody Screen Negative Crossmatch See Detail BBK History Checked Patient has bt 09/10/17 09/10/17 09/10/17 08:30 08:30 12:00 WBC 4.7 RBC 3.00 L Hgb 9.0 L Hct 26.8 L MCV 89.3 MCH 30.0 MCHC 33.6 RDW 13.7 Plt Count 171 MPV 9.0 Gran % 59.4 Lymph % (Auto) 27.4 [place] % (Auto) 9.8 H Eos % (Auto) 3.0 Baso % (Auto) 0.4 Gran # 2.79 Lymph # (Auto) 1.3 [place] # (Auto) 0.5 Eos # (Auto) 0.1 Baso # (Auto) 0.02 Sodium 141 Potassium 4.5 Chloride 105 Carbon Dioxide 27 Anion Gap 13 BUN 15 Creatinine 0.9 Est GFR ( Amer) > 60 Est GFR (Non-Af Amer) > 60 POC Glucose (mg/dL) Random Glucose 92 Calcium 8.5 Phosphorus 4.3 Magnesium 1.8 Total Bilirubin 0.7 AST 29 ALT 36 Alkaline Phosphatase 47 Lactate Dehydrogenase 363 Total Creatine Kinase 149 Troponin I < 0.01 NT-Pro-B Natriuret Pep 206 Total Protein 5.8 Albumin 3.1 Globulin 2.7 Albumin/Globulin Ratio 1.2 Triglycerides 68 Cholesterol 108 L LDL Cholesterol Direct 55 HDL Cholesterol 37 TSH 3rd Generation 2.08 Blood Type Antibody Screen Crossmatch BBK History Checked 09/10/17 12:00 WBC RBC Hgb Hct MCV MCH MCHC RDW Plt Count MPV Gran % Lymph % (Auto) [place] % (Auto) Eos % (Auto) Baso % (Auto) Gran # Lymph # (Auto) [place] # (Auto) Eos # (Auto) Baso # (Auto) Sodium Potassium Chloride Carbon Dioxide Anion Gap BUN Creatinine Est GFR ( Amer) Est GFR (Non-Af Amer) POC Glucose (mg/dL) Random Glucose Calcium Phosphorus Magnesium Total Bilirubin AST ALT Alkaline Phosphatase Lactate Dehydrogenase 369 Total Creatine Kinase 139 Troponin I < 0.01 NT-Pro-B Natriuret Pep Total Protein Albumin Globulin Albumin/Globulin Ratio Triglycerides Cholesterol LDL Cholesterol Direct HDL Cholesterol TSH 3rd Generation Blood Type Antibody Screen Crossmatch BBK History Checked EKG/Cardiology Studies: Cardiology / EKG Studies 09/10/17 06:00 EKG [ELECTROCARDIOGRAM] Q6H Comment: Reason For Exam: rule out ACS 09/10/17 12:00 EKG [ELECTROCARDIOGRAM] Q6H Comment: Reason For Exam: rule out ACS Critical Care Progress Note - Nutrition Nutrition: Nutrition Category Date Time Status Liquid Diet [DIET] Diets 09/10/17 Lunch Ordered Assessment/Plan - Assessment and Plan (Free Text) Plan: Patient seen and examined on rounds with resident, agree with note with following additions/exceptions: Patient is 76 yo male with PMHx CAD s/p 5 stents (on effient and ASA), HTN, HLD , COPD, BPH, and sarcoidosis who presented with chest pain and generalized weakness, and was found to have Hgb 6.8 with guaic positive stool. Currently afebrile, HD stable, comfortable in NAD, doing well. Received 1u prbc thus far, appropriate Hgb response 6.8-->7.7, receiving 2nd unit of PRBC. Cardiology and GI consulted GIB Anemia CAD COPD BPH Recommend: - supp o2 as needed - duonebs PRN - no ID issues - Hold BP meds - HOLD ASA, Plavix - Statin - NPO - PPI drip - GI eval - monitor CBC q12hr - maintain 2 large bore PIVs - ECHO - GI ppx - DVT ppx, SCDs - Monitor in MICU critical care time 35 minutes
[2017-09-10 08:44] LABS: BASO # 0.02 K/mm3 (0.0-2.0); BASO % 0.4 % (0.0-3.0); EOS # 0.1 (0.0-0.7); EOS % 1.8 % (1.5-5.0); GRAN # 2.88 (1.4-6.5); GRAN % 59.2 % (50.0-68.0); LYMPH # 1.4 (1.2-3.4); LYMPH % 29.6 % (22.0-35.0); MEAN CELL VOLUME 88.8 fl (80.0-105.0); MEAN CORPUSCULAR HEMOGLOBIN 29.7 pg (25.0-35.0); MEAN CORPUSCULAR HGB CONC 33.5 g/dl (31.0-37.0); MEAN PLATELET VOLUME 9.2 fl (7.0-11.0); MONO # 0.4 (0.1-0.6); RBC 2.59 10^6/uL (3.5-6.1); RED CELL DISTRIBUTION WIDTH 13.3 % (11.5-14.5); WHITE BLOOD COUNT 4.9 10^3/ul (4.5-11.0)
[2017-09-10 08:48] LABS: HEMOGLOBIN 7.7 g/dL (14.0-18.0)
[2017-09-10 09:06] LABS: ALB/GLOB RATIO 1.2 (1.1-1.8); ALBUMIN 3.1 g/dL (3.0-4.8); ALT/SGPT 36 U/L (7-56); AST/SGOT 29 U/L (17-59); BLOOD UREA NITROGEN 15 mg/dL (7-21); CALCIUM 8.5 mg/dL (8.4-10.5); GFR AFRICAN-AMERICAN > 60; GFR NON-AFRICAN AMERICAN > 60; HDL CHOLESTEROL 37 mg/dL (29-60)
[2017-09-10 09:14] LABS: B-TYPE NATRIURETIC PEPTIDE 206 pg/mL (0-450); LDL CHOLESTEROL 55 mg/dL (0-129); TROPONIN I < 0.01 ng/mL
--- NOTE | 2017-09-10 09:55 | RAD ---
HISTORY: chest pain COMPARISON: Comparison made with prior chest radiograph 03/29/2017 CT scan chest dated 04/10/2016. Re- demonstrated are extensive FINDINGS: LUNGS: Few scattered calcified granulomata throughout both lungs, right greater than left are less well seen compared to high-resolution CT scan chest. . Mild centrilobular emphysematous changes are again noted. Extensive mediastinal and hilar lymph node calcifications consistent with prior exposure to a granulomatous disease process. PLEURA: No significant pleural effusion identified, no pneumothorax apparent. CARDIOVASCULAR: Heart size within range of normal. OSSEOUS STRUCTURES: No significant abnormalities. VISUALIZED UPPER ABDOMEN: Normal. OTHER FINDINGS: None IMPRESSION: No acute infiltrates Scattered calcified granulomata throughout the both lungs right greater than left with extensive mediastinal and hilar lymph node calcifications consistent with prior exposure to granulomatous disease process
[2017-09-10] MEDS ORDERED: Morphine 4 mg/ml ISec IVP PRN (11:11)
[2017-09-10 12:10] LABS: BASO # 0.02 K/mm3 (0.0-2.0); BASO % 0.4 % (0.0-3.0); EOS # 0.1 (0.0-0.7); GRAN # 2.79 (1.4-6.5); GRAN % 59.4 % (50.0-68.0); LYMPH # 1.3 (1.2-3.4); LYMPH % 27.4 % (22.0-35.0); MEAN CELL VOLUME 89.3 fl (80.0-105.0); MEAN CORPUSCULAR HGB CONC 33.6 g/dl (31.0-37.0); MONO # 0.5 (0.1-0.6); MONO % 9.8 % (1.0-6.0); RED CELL DISTRIBUTION WIDTH 13.7 % (11.5-14.5); WHITE BLOOD COUNT 4.7 10^3/ul (4.5-11.0)
[2017-09-10 12:27] LABS: TROPONIN I < 0.01 ng/mL
--- NOTE | 2017-09-10 15:06 | CON ---
DATE: 09/10/2017 CARDIOLOGY CONSULTATION HISTORY: The patient is a 76-year-old male who presents with weakness and chest discomfort. He was found to have a hemoglobin of 6.8. PAST MEDICAL HISTORY: Includes multivessel PTCA including his last angioplasty, which was performed in 12/2016 with a drug-eluting stent in the right coronary artery. No shortness of breath noted. He was found to be Plavix resistant and was placed on aspirin and Effient at home. He does admit to dark stools over the past several days. SOCIAL HISTORY: The patient does not smoke. No diabetes mellitus noted. REVIEW OF SYSTEMS: The 14 point review of systems is reviewed in detail. Currently at rest, his cardiac symptoms have resolved. PHYSICAL EXAMINATION: VITAL SIGNS: Blood pressure is 130/70, heart rate is in the 60s, normal sinus rhythm. NECK: Negative JVD. LUNGS: Without rales. HEART: Reveal S1, S2. EXTREMITIES: Without edema. DATA: EKG shows normal sinus rhythm with no acute changes. Hemoglobin is 6.8 and is up to 7.7 after transfusion and the patient is receiving another unit of packed red blood cells. Troponins are negative x2. BUN and creatinine are unremarkable. IMPRESSION: 1. Angina. 2. Exacerbated by his marked anemia. 3. Upper gastrointestinal bleed. 4. History of multivessel percutaneous transluminal coronary angioplasty and stent including drug-eluting stent placed in the right coronary artery on 12/2016. 5. Hypercholesterolemia. 6. Plavix resistance. Given these findings, I agree with transfusing the patient to a hemoglobin closer to 9. There is no evidence for acute coronary syndrome. He will need to stay off the aspirin and Effient for now. Epi Maloney MD
--- NOTE | 2017-09-10 16:31 | CON ---
DATE: 09/10/2017 GASTROENTEROLOGY CONSULTATION REQUESTING PHYSICIAN: Eddie Green MD. REASON FOR CONSULTATION: I have been asked to see this 76-year-old male with known coronary artery disease with known coronary artery stents, on Effient, who comes to the hospital with substernal chest pain, back pain, and weakness in his left leg and some tingling in his left fingers for the last several days, who on routine blood work was found to be anemic with a hemoglobin of 7.7. The patient apparently had two episodes of what he describes as a dark black bowel movement last Sunday and last Sunday. He denies any abdominal pain, nausea, vomiting, or rectal bleeding.. In the emergency room, his hemoglobin was noted to be 6.8. He had a negative colonoscopy in December 2015. The patient was also on aspirin at home. PAST MEDICAL HISTORY: Notable for coronary artery disease with multiple stent placements, the last stent placement being in December 2016. He also has a history of COPD, hypertension, hyperlipidemia, BPH, and sarcoidosis. PAST SURGICAL HISTORY: None. SOCIAL HISTORY: He is a former smoker, having smoked two packs per day for over 10 years. He quit 20 years ago. He consumes alcohol on a social basis. FAMILY HISTORY: Noncontributory. REVIEW OF SYSTEMS: A 14-point review of systems is notable for chest pain, weakness, back pain, leg weakness, and tingling in his left fingers as well as possible melena. MEDICATIONS AT HOME: Include Effient, aspirin, Flomax, simvastatin, omeprazole, Singulair, metoprolol, and fluticasone. PHYSICAL EXAMINATION: GENERAL: Elderly male lying in bed, in no acute distress. VITAL SIGNS: Reveal temperature of 98.3, blood pressure 125/71, heart rate 62. HEENT: Reveals sclerae to be white. Conjunctivae pink. NECK: Supple. CHEST: Reveals lungs to be clear. HEART: Reveals a regular rate and rhythm. ABDOMEN: Soft, nontender. EXTREMITIES: Show no edema. LABORATORY DATA: Reveal normal electrolytes, BUN is normal at 15 with a creatinine 0.9. Troponins have been negative. Coags reveal a PTT of 25, PT 10.8, INR 0.95. CBC reveals hemoglobin of 9, up from 6.8 on admission from the hospital. IMPRESSION: This is a 76-year-old male with symptomatic anemia with chest pain, back pain, tingling in his fingers, leg weakness, with anemia, coronary artery disease, on Effient and aspirin and what he describes as two episodes of dark bowel movement, one must rule out an upper gastrointestinal bleed. He does not appear to be actively bleeding at this time. He did have a negative colonoscopy back in December 2015. RECOMMENDATIONS: 1. Follow serial hematocrits. 2. I will start the patient on clear liquids. 3. Continue IV Protonix. 4. I will schedule the patient for an upper endoscopy for tomorrow morning. Francisco Javier Patel MD
[2017-09-10 18:22] LABS: BASO # 0.01 K/mm3 (0.0-2.0); BASO % 0.2 % (0.0-3.0); EOS # 0.1 (0.0-0.7); GRAN # 2.66 (1.4-6.5); GRAN % 56.1 % (50.0-68.0); HEMOGLOBIN 9.3 g/dL (14.0-18.0); LYMPH # 1.5 (1.2-3.4); LYMPH % 32.5 % (22.0-35.0); MEAN CELL VOLUME 88.4 fl (80.0-105.0); MEAN CORPUSCULAR HEMOGLOBIN 29.9 pg (25.0-35.0); MEAN CORPUSCULAR HGB CONC 33.8 g/dl (31.0-37.0); MEAN PLATELET VOLUME 8.9 fl (7.0-11.0); MONO # 0.4 (0.1-0.6); MONO % 8.2 % (1.0-6.0); RBC 3.11 10^6/uL (3.5-6.1); RED CELL DISTRIBUTION WIDTH 13.6 % (11.5-14.5); WHITE BLOOD COUNT 4.7 10^3/ul (4.5-11.0)
--- NOTE | 2017-09-10 22:29 | HP ---
DATE OF EXAM: 09/10/2017 HISTORY OF PRESENT ILLNESS: The patient is 76-year-old, states he has been having weakness, diaphoresis, dizziness and that he does admit having black stool for the last few days. He was also complaining of having intermittent chest discomfort. He was brought by family to the emergency room for further evaluation. He was found to have a hemoglobin of 6.8 with hematocrit of 19.7. He was admitted in ICU for close monitoring because of multiple other comorbidities. Denies any abdominal pain. No history of nausea or vomiting. Does have black stools. PAST MEDICAL HISTORY: Significant for: 1. Hypertension. 2. Hyperlipidemia. 3. History of sarcoidosis. 4. Recent right coronary artery angioplasty. 5. COPD. ALLERGIES: HE IS NOT ALLERGIC TO ANY MEDICATION. MEDICATIONS AT HOME: He is on Flomax 0.4 daily, simvastatin 20 mg daily, Effient 10 mg daily, omeprazole 20 mg daily, Singulair 10 mg daily, metoprolol 25 twice a day, , aspirin. SOCIAL HISTORY: He used to be heavy smoker. Denies alcohol use. PHYSICAL EXAMINATION: GENERAL: He is awake, alert, oriented, communicative. VITAL SIGNS: He is afebrile, pulse 60, respiration 15, blood pressure 125/71. LUNGS: Bilateral good airflow. No rhonchi or crackle. HEART: S1 and S2 audible. ABDOMEN: Soft, nontender. No rebound. No guarding. NEUROLOGICAL: The patient is awake, alert, oriented, communicative. LABORATORY EXAMINATION: WBC is 4.7, hemoglobin 9, hematocrit 26.8, platelets 171. Chemistry: Sodium 141, potassium 4.5, chloride 105, CO2 27, BUN 15, creatinine 0.9, blood sugar of 92. LFTs are within normal limits. ASSESSMENT AND PLAN: 1. Active gastrointestinal bleed with hemoglobin of 6.8, the patient got six transfusions. 2. Coronary artery disease status post angioplasty. 3. Hypertension. 4. Hyperlipidemia. 5. Sarcoidosis. 6. Chronic obstructive pulmonary disease. PLAN: Patient's aspirin and Plavix is on hold. He is being transfused. We will give him nebulizer treatment. Continue him on Protonix, then start him on clear liquid. We will follow up his CBC, CMP in a.m. Dr. Patel has been consulted for possible endoscopy in a.. Eddie Green MD [facility] # [id number]
[2017-09-11 00:48] LABS: BASO # 0.01 K/mm3 (0.0-2.0); BASO % 0.2 % (0.0-3.0); EOS # 0.3 (0.0-0.7); GRAN # 3.18 (1.4-6.5); GRAN % 63.2 % (50.0-68.0); HEMOGLOBIN 8.9 g/dL (14.0-18.0); LYMPH % 20.5 % (22.0-35.0); MEAN CELL VOLUME 88.6 fl (80.0-105.0); MEAN CORPUSCULAR HGB CONC 33.8 g/dl (31.0-37.0); MEAN PLATELET VOLUME 8.8 fl (7.0-11.0); MONO # 0.6 (0.1-0.6); MONO % 11.1 % (1.0-6.0); RBC 2.97 10^6/uL (3.5-6.1); RED CELL DISTRIBUTION WIDTH 13.8 % (11.5-14.5)
[2017-09-11] MEDS: Pantoprazole 40mg/100mL NS 40 MG/100 ML BAG IVPB SCH ×2 (05:09→10:08)
[2017-09-11] MEDS: Sodium Chloride 0.9% 1,000 ML IV SCH ×2 (05:10→16:30)
[2017-09-11 06:51] LABS: BASO # 0.01 K/mm3 (0.0-2.0); BASO % 0.2 % (0.0-3.0); EOS # 0.2 (0.0-0.7); EOS % 4.2 % (1.5-5.0); GRAN # 3.45 (1.4-6.5); GRAN % 66.7 % (50.0-68.0); HEMOGLOBIN 9.1 g/dL (14.0-18.0); LYMPH # 1.1 (1.2-3.4); MEAN CELL VOLUME 89.1 fl (80.0-105.0); MEAN CORPUSCULAR HEMOGLOBIN 29.9 pg (25.0-35.0); MEAN CORPUSCULAR HGB CONC 33.6 g/dl (31.0-37.0); MEAN PLATELET VOLUME 8.9 fl (7.0-11.0); MONO # 0.4 (0.1-0.6); MONO % 7.9 % (1.0-6.0); RBC 3.04 10^6/uL (3.5-6.1); RED CELL DISTRIBUTION WIDTH 13.8 % (11.5-14.5); WHITE BLOOD COUNT 5.2 10^3/ul (4.5-11.0)
--- NOTE | 2017-09-11 07:11 | CP.CCUPN ---
CCU Subjective - Physician Review Subjective (Free Text): 09/11/17 07:32 Patient seen and examined at bedside in ICU. Resting comfortably in bed. Denies any BM since admission, no other reports of blood per rectum. Denies chest pain, shortness of breath, nausea, emesis, room-spinning, or syncope/near- syncope. Pending EGD this AM. CCU Objective - Vital Signs / Intake & Output Vital Signs (Last 4 hours): Vital Signs Temp Pulse Resp BP Pulse Ox 09/11/17 04:40 63 17 98 09/11/17 04:30 63 17 97 09/11/17 04:20 64 17 97 09/11/17 04:10 63 20 97 09/11/17 04:00 98.3 F 61 16 116/67 97 09/11/17 03:50 65 23 97 09/11/17 03:44 77 26 H 09/11/17 03:20 65 19 99 Intake and Output (Last 8hrs): Intake & Output 09/10/17 09/11/17 09/11/17 22:59 06:59 14:59 Intake Total 1600 1240 Output Total 875 1075 Balance 725 165 Intake: IV 1000 1240 Right Antecubital 1000 1240 Oral 600 Output: Urine 875 1075 Urine, Voided 875 1075 Other: # Bowel Movements 0 - Physical Exam Head: Positive for: Atraumatic, Normocephalic. Negative for: Tenderness, Contusion, Swelling, Ecchymosis Pupils: Negative for: Non-Reactive, Pinpoint Extroacular Muscles: Positive for: EOMI. Negative for: Gaze Palsy, Entrapment Conjunctiva: Positive for: Normal. Negative for: Injected, Icteric Mouth: Positive for: Moist Mucous Membranes, Normal Lips, Normal Tounge, Normal Teeth. Negative for: Dry, Drooling Pharnyx: Positive for: Normal, Other (no bleeding sites appreciated). Negative for: ERYTHEMA, EXUDATE Nose (External): Positive for: Atraumatic. Negative for: Abrasion, Laceration, Lesions Nose (Internal): Positive for: Normal Inspection, No Active Bleeding. Negative for: Epistaxis Neck: Positive for: Normal Range of Motion. Negative for: JVD Respiratory/Chest: Positive for: Clear to Auscultation, Good Air Exchange. Negative for: Respiratory Distress, Accessory Muscle Use, Wheezes, Decreased Breath Sounds, Rales, Retracting, Rhonchi, Tachypneic, Tender to Palpation Cardiovascular: Positive for: Regular Rate and Rhythm, Normal S1, S2, Peripheal Pulses Present (+1 radial and dorsalis pedis bilaterally). Negative for: Murmurs, Irregular Rhythm, Tachycardic, Bradycardic Abdomen: Positive for: Normal Bowel Sounds. Negative for: Tenderness, Distention, Peritoneal Signs, Feeding Tubes, Mass/Organomegaly Rectal: Positive for: Melena (melanotic stool), Other (Guaiac positive) Back: Positive for: Normal Inspection Upper Extremity: Positive for: Normal Inspection, Normal ROM, NORMAL PULSES. Negative for: Cyanosis, Edema, Tenderness, Swelling, Erythema, Deformity Lower Extremity: Positive for: Normal Inspection, NORMAL PULSES, Normal ROM. Negative for: Edema, CALF TENDERNESS, Cyanosis, Tenderness, Swelling, Erythema, Deformity Neurological: Positive for: GCS=15, Speech Normal, Motor Func Grossly Intact, Normal Sensory Function Skin: Positive for: Warm, Dry, Normal Color. Negative for: Rashes Psychiatric: Positive for: Alert, Oriented x 3, Normal Insight, Normal Concentration, Normal Affect, Normal Mood - Medications Active Medications: Active Medications Generic Name Dose Route Start Last Admin Trade Name Freq PRN Reason Stop Dose Admin Albuterol/Ipratropium 3 ml 09/10/17 04:06 Duoneb 3 Mg/0.5 Mg (3 Ml) Ud IH Q4H PRN Shortness of Breath Atorvastatin Calcium 10 mg 09/11/17 17:00 Lipitor PO DIN TIFF Hydralazine HCl 10 mg 09/10/17 04:07 Apresoline IVP Q6H PRN Systolic Blood Pressure Pantoprazole Sodium 40 mg in 100 mls @ 20 mls/hr 09/10/17 04:00 09/11/17 05: 09 Protonix 40mg Ivpb IVPB 20 mls/hr .Q5H TIFF Administration Sodium Chloride 1,000 mls @ 100 mls/hr 09/10/17 04:15 09/11/17 05:10 Sodium Chloride 0.9% IV 100 mls/hr .Q10H TIFF Administration Metoprolol Tartrate 25 mg 09/10/17 18:00 09/10/17 18:47 Lopressor PO 25 mg BID TIFF Administration Morphine Sulfate 2 mg 09/10/17 11:11 09/10/17 11:50 Morphine IVP 2 mg Q4H PRN Administration Pain, moderate (4-7) Tamsulosin HCl 0.4 mg 09/10/17 13:00 09/10/17 18:47 Flomax PO 0.4 mg DAILY TIFF Administration - Patient Studies Lab Studies: Lab Studies 09/11/17 09/11/17 09/11/17 Range/Units 05:51 00:30 00:11 WBC 5.0 (4.5-11.0) 10^3/ul RBC 2.97 L (3.5-6.1) 10^6/uL Hgb 8.9 L (14.0-18.0) g/dL Hct 26.3 L (42.0-52.0) % MCV 88.6 (80.0-105.0) fl MCH 30.0 (25.0-35.0) pg MCHC 33.8 (31.0-37.0) g/dl RDW 13.8 (11.5-14.5) % Plt Count 181 (120.0-450.0) 10^3/uL MPV 8.8 (7.0-11.0) fl Gran % 63.2 (50.0-68.0) % Lymph % (Auto) 20.5 L (22.0-35.0) % [place] % (Auto) 11.1 H (1.0-6.0) % Eos % (Auto) 5.0 (1.5-5.0) % Baso % (Auto) 0.2 (0.0-3.0) % Gran # 3.18 (1.4-6.5) Lymph # (Auto) 1.0 L (1.2-3.4) [place] # (Auto) 0.6 (0.1-0.6) Eos # (Auto) 0.3 (0.0-0.7) Baso # (Auto) 0.01 (0.0-2.0) K/mm3 Sodium (132-148) mmol/L Potassium (3.6-5.0) mmol/L Chloride (98-107) mmol/L Carbon Dioxide (21-33) mmol/L Anion Gap (10-20) BUN (7-21) mg/dL Creatinine (0.8-1.5) mg/dl Est GFR ( Amer) Est GFR (Non-Af Amer) POC Glucose (mg/dL) 99 90 (65-110) mg/dL Random Glucose (70-110) mg/dL Hemoglobin A1c (4.2-6.5) % Calcium (8.4-10.5) mg/dL Phosphorus (2.5-4.5) mg/dL Magnesium (1.7-2.2) mg/dL Total Bilirubin (0.2-1.3) mg/dL AST (17-59) U/L ALT (7-56) U/L Alkaline Phosphatase (38-126) U/L Lactate Dehydrogenase (333-699) U/L Total Creatine Kinase (35-230) U/L Troponin I ng/mL NT-Pro-B Natriuret Pep (0-450) pg/mL Total Protein (5.8-8.3) g/dL Albumin (3.0-4.8) g/dL Globulin gm/dL Albumin/Globulin Ratio (1.1-1.8) Triglycerides (35-160) mg/dL Cholesterol (130-200) mg/dL LDL Cholesterol Direct (0-129) mg/dL HDL Cholesterol (29-60) mg/dL TSH 3rd Generation (0.46-4.68) mIU/mL Blood Type Antibody Screen Crossmatch BBK History Checked 09/10/17 09/10/17 09/10/17 Range/Units 18:00 12:00 12:00 WBC 4.7 4.7 (4.5-11.0) 10^3/ul RBC 3.11 L 3.00 L (3.5-6.1) 10^6/uL Hgb 9.3 L 9.0 L (14.0-18.0) g/dL Hct 27.5 L 26.8 L (42.0-52.0) % MCV 88.4 89.3 (80.0-105.0) fl MCH 29.9 30.0 (25.0-35.0) pg MCHC 33.8 33.6 (31.0-37.0) g/dl RDW 13.6 13.7 (11.5-14.5) % Plt Count 189 171 (120.0-450.0) 10^3/uL MPV 8.9 9.0 (7.0-11.0) fl Gran % 56.1 59.4 (50.0-68.0) % Lymph % (Auto) 32.5 27.4 (22.0-35.0) % [place] % (Auto) 8.2 H 9.8 H (1.0-6.0) % Eos % (Auto) 3.0 3.0 (1.5-5.0) % Baso % (Auto) 0.2 0.4 (0.0-3.0) % Gran # 2.66 2.79 (1.4-6.5) Lymph # (Auto) 1.5 1.3 (1.2-3.4) [place] # (Auto) 0.4 0.5 (0.1-0.6) Eos # (Auto) 0.1 0.1 (0.0-0.7) Baso # (Auto) 0.01 0.02 (0.0-2.0) K/mm3 Sodium (132-148) mmol/L Potassium (3.6-5.0) mmol/L Chloride (98-107) mmol/L Carbon Dioxide (21-33) mmol/L Anion Gap (10-20) BUN (7-21) mg/dL Creatinine (0.8-1.5) mg/dl Est GFR ( Amer) Est GFR (Non-Af Amer) POC Glucose (mg/dL) (65-110) mg/dL Random Glucose (70-110) mg/dL Hemoglobin A1c (4.2-6.5) % Calcium (8.4-10.5) mg/dL Phosphorus (2.5-4.5) mg/dL Magnesium (1.7-2.2) mg/dL Total Bilirubin (0.2-1.3) mg/dL AST (17-59) U/L ALT (7-56) U/L Alkaline Phosphatase (38-126) U/L Lactate Dehydrogenase 369 (333-699) U/L Total Creatine Kinase 139 (35-230) U/L Troponin I < 0.01 ng/mL NT-Pro-B Natriuret Pep (0-450) pg/mL Total Protein (5.8-8.3) g/dL Albumin (3.0-4.8) g/dL Globulin gm/dL Albumin/Globulin Ratio (1.1-1.8) Triglycerides (35-160) mg/dL Cholesterol (130-200) mg/dL LDL Cholesterol Direct (0-129) mg/dL HDL Cholesterol (29-60) mg/dL TSH 3rd Generation (0.46-4.68) mIU/mL Blood Type Antibody Screen Crossmatch BBK History Checked 09/10/17 09/10/17 09/10/17 Range/Units 11:47 08:30 08:30 WBC (4.5-11.0) 10^3/ul RBC (3.5-6.1) 10^6/uL Hgb (14.0-18.0) g/dL Hct (42.0-52.0) % MCV (80.0-105.0) fl MCH (25.0-35.0) pg MCHC (31.0-37.0) g/dl RDW (11.5-14.5) % Plt Count (120.0-450.0) 10^3/uL MPV (7.0-11.0) fl Gran % (50.0-68.0) % Lymph % (Auto) (22.0-35.0) % [place] % (Auto) (1.0-6.0) % Eos % (Auto) (1.5-5.0) % Baso % (Auto) (0.0-3.0) % Gran # (1.4-6.5) Lymph # (Auto) (1.2-3.4) [place] # (Auto) (0.1-0.6) Eos # (Auto) (0.0-0.7) Baso # (Auto) (0.0-2.0) K/mm3 Sodium (132-148) mmol/L Potassium (3.6-5.0) mmol/L Chloride (98-107) mmol/L Carbon Dioxide (21-33) mmol/L Anion Gap (10-20) BUN (7-21) mg/dL Creatinine (0.8-1.5) mg/dl Est GFR ( Amer) Est GFR (Non-Af Amer) POC Glucose (mg/dL) 91 (65-110) mg/dL Random Glucose (70-110) mg/dL Hemoglobin A1c 4.9 (4.2-6.5) % Calcium (8.4-10.5) mg/dL Phosphorus (2.5-4.5) mg/dL Magnesium (1.7-2.2) mg/dL Total Bilirubin (0.2-1.3) mg/dL AST (17-59) U/L ALT (7-56) U/L Alkaline Phosphatase (38-126) U/L Lactate Dehydrogenase (333-699) U/L Total Creatine Kinase (35-230) U/L Troponin I ng/mL NT-Pro-B Natriuret Pep (0-450) pg/mL Total Protein (5.8-8.3) g/dL Albumin (3.0-4.8) g/dL Globulin gm/dL Albumin/Globulin Ratio (1.1-1.8) Triglycerides (35-160) mg/dL Cholesterol (130-200) mg/dL LDL Cholesterol Direct (0-129) mg/dL HDL Cholesterol (29-60) mg/dL TSH 3rd Generation 2.08 (0.46-4.68) mIU/mL Blood Type Antibody Screen Crossmatch BBK History Checked 09/10/17 09/10/17 09/10/17 Range/Units 08:30 08:30 04:00 WBC 4.9 (4.5-11.0) 10^3/ul RBC 2.59 L (3.5-6.1) 10^6/uL Hgb 7.7 L (14.0-18.0) g/dL Hct 23.0 L (42.0-52.0) % MCV 88.8 (80.0-105.0) fl MCH 29.7 (25.0-35.0) pg MCHC 33.5 (31.0-37.0) g/dl RDW 13.3 (11.5-14.5) % Plt Count 181 (120.0-450.0) 10^3/uL MPV 9.2 (7.0-11.0) fl Gran % 59.2 (50.0-68.0) % Lymph % (Auto) 29.6 (22.0-35.0) % [place] % (Auto) 9.0 H (1.0-6.0) % Eos % (Auto) 1.8 (1.5-5.0) % Baso % (Auto) 0.4 (0.0-3.0) % Gran # 2.88 (1.4-6.5) Lymph # (Auto) 1.4 (1.2-3.4) [place] # (Auto) 0.4 (0.1-0.6) Eos # (Auto) 0.1 (0.0-0.7) Baso # (Auto) 0.02 (0.0-2.0) K/mm3 Sodium 141 (132-148) mmol/L Potassium 4.5 (3.6-5.0) mmol/L Chloride 105 (98-107) mmol/L Carbon Dioxide 27 (21-33) mmol/L Anion Gap 13 (10-20) BUN 15 (7-21) mg/dL Creatinine 0.9 (0.8-1.5) mg/dl Est GFR ( Amer) > 60 Est GFR (Non-Af Amer) > 60 POC Glucose (mg/dL) (65-110) mg/dL Random Glucose 92 (70-110) mg/dL Hemoglobin A1c (4.2-6.5) % Calcium 8.5 (8.4-10.5) mg/dL Phosphorus 4.3 (2.5-4.5) mg/dL Magnesium 1.8 (1.7-2.2) mg/dL Total Bilirubin 0.7 (0.2-1.3) mg/dL AST 29 (17-59) U/L ALT 36 (7-56) U/L Alkaline Phosphatase 47 (38-126) U/L Lactate Dehydrogenase 363 (333-699) U/L Total Creatine Kinase 149 (35-230) U/L Troponin I < 0.01 ng/mL NT-Pro-B Natriuret Pep 206 (0-450) pg/mL Total Protein 5.8 (5.8-8.3) g/dL Albumin 3.1 (3.0-4.8) g/dL Globulin 2.7 gm/dL Albumin/Globulin Ratio 1.2 (1.1-1.8) Triglycerides 68 (35-160) mg/dL Cholesterol 108 L (130-200) mg/dL LDL Cholesterol Direct 55 (0-129) mg/dL HDL Cholesterol 37 (29-60) mg/dL TSH 3rd Generation (0.46-4.68) mIU/mL Blood Type O POSITIVE Antibody Screen Negative Crossmatch See Detail BBK History Checked Patient has bt Laboratory Results - last 24 hr 09/10/17 09/10/17 09/10/17 04:00 08:30 08:30 WBC 4.9 RBC 2.59 L Hgb 7.7 L Hct 23.0 L MCV 88.8 MCH 29.7 MCHC 33.5 RDW 13.3 Plt Count 181 MPV 9.2 Gran % 59.2 Lymph % (Auto) 29.6 [place] % (Auto) 9.0 H Eos % (Auto) 1.8 Baso % (Auto) 0.4 Gran # 2.88 Lymph # (Auto) 1.4 [place] # (Auto) 0.4 Eos # (Auto) 0.1 Baso # (Auto) 0.02 Sodium 141 Potassium 4.5 Chloride 105 Carbon Dioxide 27 Anion Gap 13 BUN 15 Creatinine 0.9 Est GFR ( Amer) > 60 Est GFR (Non-Af Amer) > 60 POC Glucose (mg/dL) Random Glucose 92 Hemoglobin A1c Calcium 8.5 Phosphorus 4.3 Magnesium 1.8 Total Bilirubin 0.7 AST 29 ALT 36 Alkaline Phosphatase 47 Lactate Dehydrogenase 363 Total Creatine Kinase 149 Troponin I < 0.01 NT-Pro-B Natriuret Pep 206 Total Protein 5.8 Albumin 3.1 Globulin 2.7 Albumin/Globulin Ratio 1.2 Triglycerides 68 Cholesterol 108 L LDL Cholesterol Direct 55 HDL Cholesterol 37 TSH 3rd Generation Blood Type O POSITIVE Antibody Screen Negative Crossmatch See Detail BBK History Checked Patient has bt 09/10/17 09/10/17 09/10/17 08:30 08:30 11:47 WBC RBC Hgb Hct MCV MCH MCHC RDW Plt Count MPV Gran % Lymph % (Auto) [place] % (Auto) Eos % (Auto) Baso % (Auto) Gran # Lymph # (Auto) [place] # (Auto) Eos # (Auto) Baso # (Auto) Sodium Potassium Chloride Carbon Dioxide Anion Gap BUN Creatinine Est GFR ( Amer) Est GFR (Non-Af Amer) POC Glucose (mg/dL) 91 Random Glucose Hemoglobin A1c 4.9 Calcium Phosphorus Magnesium Total Bilirubin AST ALT Alkaline Phosphatase Lactate Dehydrogenase Total Creatine Kinase Troponin I NT-Pro-B Natriuret Pep Total Protein Albumin Globulin Albumin/Globulin Ratio Triglycerides Cholesterol LDL Cholesterol Direct HDL Cholesterol TSH 3rd Generation 2.08 Blood Type Antibody Screen Crossmatch BBK History Checked 09/10/17 09/10/17 09/10/17 12:00 12:00 18:00 WBC 4.7 4.7 RBC 3.00 L 3.11 L Hgb 9.0 L 9.3 L Hct 26.8 L 27.5 L MCV 89.3 88.4 MCH 30.0 29.9 MCHC 33.6 33.8 RDW 13.7 13.6 Plt Count 171 189 MPV 9.0 8.9 Gran % 59.4 56.1 Lymph % (Auto) 27.4 32.5 [place] % (Auto) 9.8 H 8.2 H Eos % (Auto) 3.0 3.0 Baso % (Auto) 0.4 0.2 Gran # 2.79 2.66 Lymph # (Auto) 1.3 1.5 [place] # (Auto) 0.5 0.4 Eos # (Auto) 0.1 0.1 Baso # (Auto) 0.02 0.01 Sodium Potassium Chloride Carbon Dioxide Anion Gap BUN Creatinine Est GFR ( Amer) Est GFR (Non-Af Amer) POC Glucose (mg/dL) Random Glucose Hemoglobin A1c Calcium Phosphorus Magnesium Total Bilirubin AST ALT Alkaline Phosphatase Lactate Dehydrogenase 369 Total Creatine Kinase 139 Troponin I < 0.01 NT-Pro-B Natriuret Pep Total Protein Albumin Globulin Albumin/Globulin Ratio Triglycerides Cholesterol LDL Cholesterol Direct HDL Cholesterol TSH 3rd Generation Blood Type Antibody Screen Crossmatch BBK History Checked 09/11/17 09/11/17 09/11/17 00:11 00:30 05:51 WBC 5.0 RBC 2.97 L Hgb 8.9 L Hct 26.3 L MCV 88.6 MCH 30.0 MCHC 33.8 RDW 13.8 Plt Count 181 MPV 8.8 Gran % 63.2 Lymph % (Auto) 20.5 L [place] % (Auto) 11.1 H Eos % (Auto) 5.0 Baso % (Auto) 0.2 Gran # 3.18 Lymph # (Auto) 1.0 L [place] # (Auto) 0.6 Eos # (Auto) 0.3 Baso # (Auto) 0.01 Sodium Potassium Chloride Carbon Dioxide Anion Gap BUN Creatinine Est GFR ( Amer) Est GFR (Non-Af Amer) POC Glucose (mg/dL) 90 99 Random Glucose Hemoglobin A1c Calcium Phosphorus Magnesium Total Bilirubin AST ALT Alkaline Phosphatase Lactate Dehydrogenase Total Creatine Kinase Troponin I NT-Pro-B Natriuret Pep Total Protein Albumin Globulin Albumin/Globulin Ratio Triglycerides Cholesterol LDL Cholesterol Direct HDL Cholesterol TSH 3rd Generation Blood Type Antibody Screen Crossmatch BBK History Checked EKG/Cardiology Studies: Cardiology / EKG Studies 09/10/17 12:00 EKG [ELECTROCARDIOGRAM] Q6H Comment: Reason For Exam: rule out ACS Fingerstick Blood Sugar Results: 90 Review of Systems - Review of Systems All systems: reviewed and no additional remarkable complaints except (as per HPI ) Critical Care Progress Note - Nutrition Nutrition: Nutrition Category Date Time Status Liquid Diet [DIET] Diets 09/10/17 Lunch Ordered NPO Diet [DIET] Diets 09/11/17 Breakfast Ordered Assessment/Plan - Assessment and Plan (Free Text) Assessment: This is a 76 yo AA M with PMH CAD s/p 5 stents (on effient and ASA), HTN, HLD, COPD, BPH, and sarcoidosis who presented with chest pain and generalized weakness, and was found to have Hgb 6.8 with guaic positive stool in the ED. His Hgb improved to 9.1 after 2 units pRBCs, and has remained stable since on multiple rechecks. Pending EGD today as per GI. Plan: Neuro: -CT head: negative for acute intracranial process -awake, alert, oriented to self/location/year -weakness likely secondary to acute anemia with no focal deficits, moving all extremities spontaneously -HoB above 30 degrees -maintain normothermia Cardio -chest pain resolved, no further incidence -continue holding ASA and effient in light of suspected upper GI bleed; continue home metoprolol and lipitor given CAD hx -maintain MAP > 65, currently maintain BP well -Hydralazine prn for high BP -trop x3 negative -TSH wnl, Lipid panel notable for HDL 37 otherwise wnl, BNP not elevated -Hgb 9.1 today s/p 2 units pRBCs, stable on several checks, no additional transfusions indicated at this time -Cardio consulted, appreciate all recs Respiratory -satting well on 2L NC, maintain SpO2 > 90% -Duoneb prn given hx COPD, but not acutely wheezing/dyspnic at this time, so no need for scheduled nebs or steroids GI -NPO and holding antiplatelets due to likely upper GI bleed -protonix gtt -GI consulted, appreciate all recs; EGD today Renal -monitor I's and O's, making good urine -no acute issues -monitor and replete electrolytes as needed Heme/Onc -acute anemia likely secondary to UGIB, Hgb 6.8 on arrival, 9.1 today s/p 2 units pRBCs -monitor for bleeding and monitor vitals closely -f/u venous duplex b/l LE Endo -no acute issues -maintain euglycemia (BG 140-180 as per NICE-Sugar trial) ID: -afebrile, no leukocytosis -no indications for abx at this time Dispo: STABLE (hemodynamically stable, BP 110's-120's systolic consistently without pressor support, Hgb stable at 9 s/p 2 units pRBC on several rechecks, satting well on nasal canula, normothermic), pending EEG by GI; if EEG normal can be put up for transfer to telemetry FEN: NPO, NS at 100cc/hr Access: Peripheral IVs Consults: GI, Cardio Ppx: Protonix drip covers GI, SCDs for DVT (AC contraindicated due to suspected GI bleed) Patient seen, reviewed, and discussed with attending, Dr. Chavez
[2017-09-11 07:25] LABS: ALB/GLOB RATIO 1.1 (1.1-1.8); ALBUMIN 2.9 g/dL (3.0-4.8); ALT/SGPT 30 U/L (7-56); AST/SGOT 37 U/L (17-59); BLOOD UREA NITROGEN 9 mg/dL (7-21); CALCIUM 8.2 mg/dL (8.4-10.5); GFR AFRICAN-AMERICAN > 60; GFR NON-AFRICAN AMERICAN > 60
[2017-09-11] MEDS ORDERED: Morphine 2 mg/2 mL syringe IVP PRN (11:07)
[2017-09-11] MEDS ORDERED: Etomidate 20 mg/10ml Inj IV ONE ×2 (12:44)
[2017-09-11] MEDS ORDERED: Propofol 10 mg/ml Inj (20 ML) ONE (12:44)
[2017-09-11] MEDS ORDERED: Succinylcholine 200 mg/10 ml Inj IV ONE (12:44)
[2017-09-11] MEDS ORDERED: Albuterol HFA 90 mcg/actuation (8 g) ONE ×2 (12:45→12:49)
--- NOTE | 2017-09-11 12:56 | PN ---
DATE: 09/11/2017 SUBJECTIVE: The patient is 76 years old, seen and examined, lying in bed, seems to be comfortable. No nausea, vomiting. No diarrhea. No chest pain. No shortness of breath. PHYSICAL EXAMINATION: VITAL SIGNS: He is afebrile, pulse 65, respirations 17, blood pressure 132/74. LUNGS: Bilateral good airflow. No rhonchi or crackle. HEART: S1 and S2 audible. ABDOMEN: Soft. Nontender. No rebound. No guarding. NEUROLOGICAL: He is awake, alert, oriented, communicative. LABORATORY EXAM: WBC is 5.2, hemoglobin 9.1, hematocrit 27.1, platelet of 197. PT 10.8, INR 0.95. Chemistry: Sodium 140, potassium 4.3, chloride 105, CO2 of 29, BUN 9, creatinine 0.9, blood sugar of 59. ASSESSMENT: 1. Upper gastrointestinal bleed. 2. Coronary artery disease, status post angioplasty. 3. Hypertension. 4. Sarcoidosis. 5. Coronary artery diseases, status post multiple angioplasties in the past. PLAN: The patient is going for upper endoscopy. Accordingly, we will start him on a diet and his aspirin and Plavix are on hold and he is on PPIs. The patient is status post multiple transfusions, holding his hemoglobin. We will advance diet. If his hemoglobin remains stable, will be discharged in the a.m. We will discuss with Dr. Maloney to determine upon discharge he should be only on aspirin or we have to put him on any antiplatelet therapy. Eddie Green MD
[2017-09-11] MEDS ORDERED: ePHEDrine 50 mg/ml Inj ONE (13:04)
[2017-09-11] MEDS ORDERED: Magnesium Citrate Oral SOL (300 ml) PO ONE ×2 (13:14→19:00)
--- NOTE | 2017-09-11 13:37 | CARD ---
APPROVED REPORT EXAM: Two-dimensional and M-mode echocardiogram with Doppler and color Doppler. INDICATION 2D DIMENSIONS IVSd1.0 (0.7-1.1cm)LVDd5.0 (3.9-5.9cm) PWd0.9 (0.7-1.1cm)LVDs3.3 (2.5-4.0cm) FS (%) 35.1 %LVEF (%)64.0 (>50%) M-Mode DIMENSIONS Left Atrium (MM)3.20 (2.5-4.0cm)Aortic Root2.90 (2.2-3.7cm) Aortic Cusp Exc.1.60 (1.5-2.0cm) Aortic Valve AoV Peak Yxtsmqio057.0cm/Ariadna Peak GR.10mmHgAI P 1/2 [id number] Mitral Valve MV E Zhoxpovm30.4cm/sMV E Peak Gr.88mmHgMV A Dcnknllv18.8cm/s E/A ratio1.0 TDI Lateral E' Peak V12.60cm/sMedial E' Peak V7.12cm/sE/Lateral E'6.9 E/Medial E'12.1 Tricuspid Valve TR Peak [id number]/sRAP [id number] Peak Gr.96mmHg [id number] LEFT VENTRICLE The left ventricle is normal size. There is normal left ventricular wall thickness. The left ventricular function is normal. The left ventricular ejection fraction is within the normal range. There is normal LV segmental wall motion. Transmitral Doppler flow pattern is Grade I-abnormal relaxation pattern. RIGHT VENTRICLE The right ventricle is normal size. There is normal right ventricular wall thickness. The right ventricular systolic function is normal. ATRIA The left atrium size is normal. The right atrium size is normal. AORTIC VALVE The aortic valve is mildly sclerotic. There is mild aortic regurgitation. MITRAL VALVE The mitral valve is mildly thickened. Mitral regurgitation is trace. TRICUSPID VALVE There is severe pulmonary hypertension. GREAT VESSELS The aortic root is normal in size. PERICARDIAL EFFUSION There is no pericardial effusion. <Conclusion> The left ventricle is normal size. There is normal left ventricular wall thickness. The left ventricular function is normal. The left ventricular ejection fraction is within the normal range. There is normal LV segmental wall motion. Transmitral Doppler flow pattern is Grade I-abnormal relaxation pattern. There is mild aortic regurgitation. There is severe pulmonary hypertension.
--- NOTE | 2017-09-11 14:10 | CARD ---
APPROVED REPORT EKG Measurement Heart [id number] [place] [id number] <Conclusion> Normal sinus rhythm Normal ECG
--- NOTE | 2017-09-11 14:14 | CARD ---
APPROVED REPORT EKG Measurement Heart [id number] [place] 152P55 [id number] <Conclusion> Sinus rhythm with premature atrial complexes with aberrant conduction Otherwise normal ECG
--- NOTE | 2017-09-11 14:15 | CARD ---
APPROVED REPORT EKG Measurement Heart [id number] [place] 148P75 [id number] <Conclusion> Normal sinus rhythm Normal ECG
[2017-09-11 14:46] LABS: IRON 18 ug/dL (45-180)
[2017-09-11 14:56] LABS: % IRON SATURATION 5 % (20-55); TOTAL IRON BINDING CAPACITY 349 ug/dL (261-462)
--- NOTE | 2017-09-11 15:45 | PN ---
DATE: 09/11/2017 CARDIOLOGY FOLLOWUP SUBJECTIVE: The patient tolerated endoscopy. No symptoms. PHYSICAL EXAMINATION: VITAL SIGNS: Blood pressure 132/74, heart rate is in 60s. NECK: Negative JVD. LUNGS: Without rales. HEART: Reveal S1 and S2. EXTREMITIES: Without edema. LABORATORY DATA: Chemistries are stable. Hemoglobin is 9.1, which is stable. IMPRESSION: 1. Status post marked anemia. 2. Need to rule out gastrointestinal bleed. 3. Stable angina. 4. History of percutaneous transluminal coronary angioplasty and stent. 5. Anemia. PLAN: Given these findings, waiting for endoscopy. Currently, we will need to stay off aspirin and Effient for now. Epi Maloney MD
[2017-09-11 21:07] LABS: FERRITIN 13.5 ng/mL
[2017-09-11 21:38] LABS: FOLATE 11.2 ng/mL
[2017-09-12] MEDS: Sodium Chloride 0.9% 1,000 ML IV SCH (02:08)
[2017-09-12 06:50] LABS: BASO # 0.01 K/mm3 (0.0-2.0); BASO % 0.2 % (0.0-3.0); EOS # 0.2 (0.0-0.7); GRAN # 2.82 (1.4-6.5); GRAN % 61.1 % (50.0-68.0); HEMOGLOBIN 8.5 g/dL (14.0-18.0); LYMPH # 1.1 (1.2-3.4); LYMPH % 22.7 % (22.0-35.0); MEAN CELL VOLUME 88.8 fl (80.0-105.0); MEAN CORPUSCULAR HEMOGLOBIN 29.7 pg (25.0-35.0); MEAN CORPUSCULAR HGB CONC 33.5 g/dl (31.0-37.0); MONO # 0.5 (0.1-0.6); RBC 2.86 10^6/uL (3.5-6.1); RED CELL DISTRIBUTION WIDTH 13.2 % (11.5-14.5); WHITE BLOOD COUNT 4.6 10^3/ul (4.5-11.0)
[2017-09-12 06:52] LABS: ALB/GLOB RATIO 1.1 (1.1-1.8); ALBUMIN 2.9 g/dL (3.0-4.8); ALT/SGPT 36 U/L (7-56); AST/SGOT 41 U/L (17-59); BLOOD UREA NITROGEN 7 mg/dL (7-21); CALCIUM 8.1 mg/dL (8.4-10.5); GFR AFRICAN-AMERICAN > 60; GFR NON-AFRICAN AMERICAN > 60
[2017-09-12] MEDS ORDERED: Sodium Chloride 0.9% 1,000 ML IV SCH (09:45)
[2017-09-12] MEDS ORDERED: Propofol 10 mg/ml Inj (20 ML) ONE (10:02)
[2017-09-12] MEDS ORDERED: Phenylephrine 10 mg/ml Inj ONE (10:24)
[2017-09-12 10:46] VITALS: TEMP 98.1
[2017-09-12] MEDS ORDERED: Barium Sulfate Susp 2.1% w/v, 2.0% w/w 450 mL Bottle PO ONE (10:54)
--- NOTE | 2017-09-12 13:15 | US ---
HISTORY: Leg pain and swelling. Evaluate for DVT PHYSICIAN(S): Epi Sandoval MD. TECHNIQUE: Duplex sonography and color-flow Doppler with graded compression were used to evaluate the deep venous systems of both lower extremities. FINDINGS: The visualized deep venous systems of both lower extremities are sonographically normal and compressible. Normal wave forms and augmentation are seen. There is no sonographic evidence for deep venous thrombosis in the visualized segments of both lower extremities. IMPRESSION: No sonographic evidence for deep venous thrombosis in the visualized segments of both lower extremities.
--- NOTE | 2017-09-12 14:43 | CT ---
PROCEDURE: CT Abdomen and Pelvis with contrast HISTORY: anemia COMPARISON: None. TECHNIQUE: Contrast dose: 100 mL of Omnipaque 350 Radiation dose: Total exam DLP = 350 mGy-cm. This CT exam was performed using one or more of the following dose reduction techniques: Automated exposure control, adjustment of the mA and/or kV according to patient size, and/or use of iterative reconstruction technique. FINDINGS: LOWER THORAX: Left lateral calcified pleural base granuloma lingular/fissural pleural thickening Right lung base discoid atelectasis and/or fibrosis with sub cm pneumatocele and an additional smaller sub cm. Another sub cm pneumatocele more central and medial positioned right lung base LIVER: Unremarkable. No gross lesion or ductal dilatation. GALLBLADDER AND BILE DUCTS: Unremarkable. PANCREAS: Unremarkable. No gross lesion or ductal dilatation. SPLEEN: Unremarkable. ADRENALS: Unremarkable. No mass. KIDNEYS AND URETERS: Unremarkable. No hydronephrosis. No solid mass. VASCULATURE: Atherosclerotic vascular calcifications present. . No aortic aneurysm. BOWEL: Several loops are collapsed. No proximal dilatation to suggest bowel obstruction. No gross mural thickening. APPENDIX: Normal appendix. PERITONEUM: Unremarkable. No free fluid. No free air. LYMPH NODES: Unremarkable. No enlarged lymph nodes. BLADDER: Moderately distended otherwise unremarkable REPRODUCTIVE: Prostate and seminal vesicles appear mildly enlarged BONES: Degenerative changes. No fracture or lytic lesion appreciated OTHER FINDINGS: In the right groin there is soft tissue density probably relating to engorgement of right spermatic cord vasculature -no definite gas or contrast laden small large bowel loops here seen. A decompressed non gas-filled or noncontrast lead bowel lobe would be difficult to completely exclude. As there is some contrast laden small-bowel loops in close proximity just above this area. No bowel distension to suggest any obstruction IMPRESSION: No suspect mass or bowel obstruction. No suspect lymphadenopathy. Degenerative osseous changes. Rounded soft tissue density tubular measuring 4.8 cm in length with a AP dimension of 1.0 cm and a width of 1.2 cm this may represent engorgement of right spermatic cord vessels. However decompressed non contrast laden non gas laden bowel loops cannot be entirely excluded. No bowel obstruction for any such potential is a suggested either. Consider elective follow-up right groin ultrasound imaging With Valsalva maneuver to assess for any potential peristalsis here. Doppler can also be applied regarding the vascularity
--- NOTE | 2017-09-12 16:26 | PN ---
DATE: 09/12/2017 SUBJECTIVE: Patient is 76 years old, seen and examined, came back for colonoscopy as well as polypectomy done. Drinking contrast for CT scan of the abdomen and pelvis. An endoscopy done yesterday, unremarkable. OBJECTIVE: VITAL SIGNS: He is afebrile, pulse 60, respirations 20, blood pressure 118/51. LUNGS: Bilateral fair airflow. No rhonchi or crackle. HEART: S1 and S2 audible. ABDOMEN: Soft. Nontender. No rebound. No guarding. NEUROLOGIC: He is awake, alert, oriented, and communicative. Moves all extremities. EXTREMITIES: Bilateral leg, no edema. LABORATORY DATA: WBC is 4.6, hemoglobin 8.5, hematocrit 25.4, and platelets of 206. Chemistries: Sodium 141, potassium 3.9, chloride 107, CO2 of 27. BUN 7, creatinine 0.8. Blood sugar of 85. Stool for Hemoccult is positive. ASSESSMENT: 1. Symptomatic anemia, status post endoscopy shows normal esophagus, small hiatal hernia, also stomach is normal and visualized duodenum is also normal, and colonoscopy done today that shows 5 mm polyp in the cecum, it was sessile. The polyp was removed. 2. History of sarcoidosis. 3. Hypertension. 4. Hyperlipidemia. PLAN: Patient is getting CT scan of the abdomen and pelvis done. We will follow lab and will advance his diet after he had CT scan done and will be discharged either tonight or tomorrow morning. Eddie Green MD
[2017-09-12 16:50] VITALS: BP 124/76; PULSE 66; RESP 19; O2SAT 98
[2017-09-12 17:12] LABS: URINE BILIRUBIN NEGATIVE (NEGATIVE); URINE BLOOD NEGATIVE (NEGATIVE); URINE GLUCOSE (UA) NEGATIVE (NEGATIVE); URINE LEUKOCYTE ESTERASE NEGATIVE Leu/uL (NEGATIVE); URINE PROTEIN NEGATIVE mg/dL (<30 mg/dL); URINE UROBILINOGEN 0.2 E.U./dL (<1 E.U./dL)
[2017-09-12 17:15] LABS: URINE APPEARANCE CLEAR (CLEAR); URINE COLOR YELLOW (YELLOW)
== END 2017-09-12 18:38 | disposition home or self-care (01) | DRG 379 ==
LOC: ED 01:57 → ERH 03:58 → CCU 04:28 → 3RNO 09-11 16:13
PROVIDERS: ADMIT Internal Medicine; ATTEND Internal Medicine
PROC: 30233N1 Transfusion of Nonautologous Red Blood Cells into Peripheral Vein, Percutaneous Approach (ICD-10-PCS; 2017-09-10)
PROC: 0DJ08ZZ Inspection of Upper Intestinal Tract, Via Natural or Artificial Opening Endoscopic (ICD-10-PCS; principal; 2017-09-11 11:30)
PROC: 0DBH8ZZ Excision of Cecum, Via Natural or Artificial Opening Endoscopic (ICD-10-PCS; 2017-09-12)
DX: K92.1 Melena (principal); D64.9 Anemia, unspecified; I25.118 Atherosclerotic heart disease of native coronary artery with other forms of angina pectoris; J44.9 Chronic obstructive pulmonary disease, unspecified; I10 Essential (primary) hypertension; D86.9 Sarcoidosis, unspecified; N40.0 Benign prostatic hyperplasia without lower urinary tract symptoms; K21.9 Gastro-esophageal reflux disease without esophagitis; E78.00 Pure hypercholesterolemia, unspecified; D12.0 Benign neoplasm of cecum; K44.9 Diaphragmatic hernia without obstruction or gangrene; Z95.5 Presence of coronary angioplasty implant and graft; Z87.891 Personal history of nicotine dependence

== ENCOUNTER 2018-04-22 21:13 | Emergency (ER) | payer MEDICARE ==
[2018-04-22 21:20] VITALS: BMI 29.5
[2018-04-22 22:42] LABS: BASO # 0.01 K/mm3 (0.0-2.0); BASO % 0.2 % (0.0-3.0); EOS % 0.8 % (1.5-5.0); GRAN # 4.14 (1.4-6.5); GRAN % 84.1 % (50.0-68.0); HEMOGLOBIN 14.3 g/dL (14.0-18.0); LYMPH # 0.5 (1.2-3.4); LYMPH % 10.2 % (22.0-35.0); MEAN CELL VOLUME 97.5 fl (80.0-105.0); MEAN CORPUSCULAR HEMOGLOBIN 32.1 pg (25.0-35.0); MEAN CORPUSCULAR HGB CONC 32.9 g/dl (31.0-37.0); MEAN PLATELET VOLUME 9.1 fl (7.0-11.0); MONO # 0.2 (0.1-0.6); MONO % 4.7 % (1.0-6.0); RBC 4.46 10^6/uL (3.5-6.1); RED CELL DISTRIBUTION WIDTH 12.4 % (11.5-14.5); WHITE BLOOD COUNT 4.9 10^3/uL (4.5-11.0)
[2018-04-22 22:52] LABS: ALB/GLOB RATIO 1.1 (1.1-1.8); ALBUMIN 3.7 g/dL (3.0-4.8); ALT/SGPT 30 U/L (7-56); AST/SGOT 25 U/L (17-59); BLOOD UREA NITROGEN 14 mg/dL (7-21); CALCIUM 9.2 mg/dL (8.4-10.5); GFR NON-AFRICAN AMERICAN > 60
[2018-04-22 23:02] LABS: TROPONIN I < 0.01 ng/mL
[2018-04-22] MEDS ORDERED: Iohexol 350 MG/100 ML VIAL ONE (23:23)
[2018-04-23 01:24] VITALS: BP 129/81; PULSE 71; O2SAT 96
--- NOTE | 2018-04-23 02:48 | ED PDOC ---
Arrival/HPI - General Chief Complaint: Chest Pain Historian: Patient - History of Present Illness Narrative History of Present Illness (Text): 04/23/18 02:44 77 year old male, with a history of inguinal hernia, presents to the emergency department with abdominal pain, for several days. Patient states he is scheduled to have his hernia repaired after medical clearance. Patient informs of one episode of non-bloody diarrhea. Patient denies any fever, nauseam vomiting, chest pain, cough, or any other complaint. Time/Duration: Prior to Arrival, < week Symptom Onset: Gradual Symptom Course: Unchanged Past Medical History - Provider Review Nursing Documentation Reviewed: Yes - Infectious Disease Hx of Infectious Diseases: None - Cardiac Hx Hypertension: Yes - Pulmonary Hx Chronic Obstructive Pulmonary Disease (COPD): Yes - Neurological Hx Neurological Disorder: No - HEENT Hx HEENT Disorder: Yes (NOSE BLEED) - Renal Hx Renal Disorder: No - Endocrine/Metabolic Hx Endocrine Disorders: No - Hematological/Oncological Hx Blood Transfusions: No Hx Blood Transfusion Reaction: No - Integumentary Hx Dermatological Disorder: No - Musculoskeletal/Rheumatological Hx Musculoskeletal Disorders: No Hx Falls: No - Gastrointestinal Hx Gastrointestinal Disorders: Yes Hx Gastroesophageal Reflux: Yes - Genitourinary/Gynecological Hx Genitourinary Disorders: Yes Hx Prostate Problems: Yes (BPH) - Psychiatric Hx Psychophysiologic Disorder: Yes Hx Emotional Abuse: No Hx Physical Abuse: No Hx Substance Use: No - Surgical History Hx Coronary Stent: Yes - Anesthesia Hx Anesthesia Reactions: No Hx Malignant Hyperthermia: No - Suicidal Assessment Feels Threatened In Home Enviroment: No Family/Social History - Physician Review Nursing Documentation Reviewed: Yes Family/Social History: No Known Family HX Smoking Status: Former Smoker Hx Alcohol Use: No Hx Substance Use: No Hx Substance Use Treatment: No Allergies/Home Meds Allergies/Adverse Reactions: Allergies No Known Allergies Allergy (Verified 03/29/17 18:26) Home Medications: Home Meds Medication Instructions Recorded Confirmed Aspirin [Aspir 81] 81 mg PO QAM 03/02/12 04/03/18 Metoprolol Tartrate [Lopressor] 25 mg PO BID 12/17/15 04/03/18 Simvastatin 20 mg PO QAM 12/17/15 04/03/18 Omeprazole 20 mg PO DAILY 12/19/16 04/03/18 Montelukast [Singulair] 10 mg PO DAILY 03/29/17 04/03/18 Tamsulosin [Flomax] 0.4 mg PO DAILY 03/29/17 04/03/18 Cholecalciferol (Vitamin D3) 1,000 unit PO DAILY 04/03/18 04/03/18 [Vitamin D3] Ferrous Sulfate [Feosol] 325 mg PO DAILY 04/03/18 04/03/18 Fluticasone/Vilanterol [Breo 1 each IH DAILY 04/03/18 04/03/18 Ellipta 200-25 Mcg INH] Review of Systems - Physician Review All systems were reviewed & negative as marked: Yes - Review of Systems Constitutional: absent: Fevers Respiratory: absent: Cough Cardiovascular: absent: Chest Pain Gastrointestinal: Abdominal Pain, Diarrhea. absent: Nausea, Vomiting Physical Exam Vital Signs Reviewed: Yes Vital Signs Pulse Resp BP Pulse Ox 04/23/18 01:23 71 20 129/81 96 Blood Pressure: Normal Pulse: Regular Respiratory Rate: Normal Appearance: Positive for: Well-Appearing, Non-Toxic, Comfortable Pain Distress: None Mental Status: Positive for: Alert and Oriented X 3 - Systems Exam Head: Present: Atraumatic, Normocephalic Pupils: Present: PERRL Extroacular Muscles: Present: EOMI Conjunctiva: Present: Normal Mouth: Present: Moist Mucous Membranes Neck: Present: Normal Range of Motion Respiratory/Chest: Present: Clear to Auscultation, Good Air Exchange. No: Respiratory Distress, Accessory Muscle Use Cardiovascular: Present: Regular Rate and Rhythm, Normal S1, S2. No: Murmurs Abdomen: Present: Tenderness (Mild abdominal tenderness ), Normal Bowel Sounds, Hernias (Right inguinal hernia with bowel sounds in it, easily reducible ). No: Distention, Peritoneal Signs Back: Present: Normal Inspection Upper Extremity: Present: Normal Inspection. No: Cyanosis, Edema Lower Extremity: Present: Normal Inspection. No: Edema Neurological: Present: GCS=15, CN II-XII Intact, Speech Normal Skin: Present: Warm, Dry, Normal Color. No: Rashes Psychiatric: Present: Alert, Oriented x 3, Normal Insight, Normal Concentration Medical Decision Making ED Course and Treatment: 04/23/18 02:53 Impression: 77 year old male presents with abdominal pain. Plan: -- CT ABD & Pelvis -- EKG -- Urine culture -- Urinalysis -- Reassess and disposition Prior Visits: Notes and results from previous visits were reviewed. Progress Notes: EKG reviewed by me, shows: Sinus tachycardia @ 100 bpm Normal axis and PAC - Lab Interpretations Lab Results: Troponin I < 0.01 ng/mL 04/22/18 22:28 Total Bilirubin 0.8 mg/dL (0.2-1.3) 04/22/18 22:28 AST 25 U/L (17-59) 04/22/18 22:28 ALT 30 U/L (7-56) 04/22/18 22:28 Alkaline Phosphatase 71 U/L (38-126) 04/22/18 22:28 Total Protein 6.9 g/dL (5.8-8.3) 04/22/18 22:28 Albumin 3.7 g/dL (3.0-4.8) 04/22/18 22:28 Globulin 3.2 gm/dL 04/22/18 22:28 Albumin/Globulin Ratio 1.1 (1.1-1.8) 04/22/18 22:28 - RAD Interpretation Radiology Orders: 04/22/18 22:06 ABD & PELVIS IV CONTRAST ONLY [CT] Stat - Scribe Statement The provider has reviewed the documentation as recorded by the Razia Lopez Provider Scribe Attestation: All medical record entries made by the Scribe were at my direction and personally dictated by me. I have reviewed the chart and agree that the record accurately reflects my personal performance of the history, physical exam, medical decision making, and the department course for this patient. I have also personally directed, reviewed, and agree with the discharge instructions and disposition. Disposition/Present on Arrival - Present on Arrival Any Indicators Present on Arrival: No History of DVT/PE: No History of Uncontrolled Diabetes: No Urinary Catheter: No History of Decub. Ulcer: No History Surgical Site Infection Following: None - Disposition Have Diagnosis and Disposition been Completed?: Yes Diagnosis: Hernia Disposition: HOME/ ROUTINE Disposition Time: 23:20 Condition: GOOD Discharge Instructions (ExitCare): Inguinal and Femoral (Groin) Hernias Additional Instructions: ANGELA ZAVALA, thank you for letting us take care of you today. The emergency medical care you received today was directed at your acute symptoms. If you were prescribed any medication, please fill it and take as directed. It may take several days for your symptoms to resolve. Return to the Emergency Department if your symptoms worsen, do not improve, or if you have any other problems. Please contact your doctor or call one of the physicians/clinics you have been referred to that are listed on the Patient Visit Information form that is included in your discharge packet. Bring any paperwork you were given at discharge with you along with any medications you are taking to your follow up visit. Our treatment cannot replace ongoing medical care by a primary care prov ider outside of the emergency department. Thank you for allowing the [email or web address] team to be part of your care today. Follow up with your doctors as scheduled this week for re-evaluation and further management. Referrals: [facility], [Non-Staff] - Follow up with primary Forms: [place] ([place])
[2018-04-23 02:59] VITALS: TEMP 98
[2018-04-23 03:22] VITALS: RESP 18
--- NOTE | 2018-04-23 12:13 | CT ---
Date of service: 04/23/2018 PROCEDURE: CT Abdomen and Pelvis with contrast HISTORY: abdominal pain r/o obstructin - h/o hernia COMPARISON: 09/12/2017 TECHNIQUE: Contrast dose: 100 cc of Omni 350 Radiation dose: Total exam DLP = 303.5 mGy-cm. This CT exam was performed using one or more of the following dose reduction techniques: Automated exposure control, adjustment of the mA and/or kV according to patient size, and/or use of iterative reconstruction technique. FINDINGS: LOWER THORAX: Unremarkable. LIVER: Unremarkable. No gross lesion or ductal dilatation. GALLBLADDER AND BILE DUCTS: Unremarkable. PANCREAS: Unremarkable. No gross lesion or ductal dilatation. SPLEEN: Unremarkable. ADRENALS: Unremarkable. No mass. KIDNEYS AND URETERS: Unremarkable. No hydronephrosis. No solid mass. VASCULATURE: Unremarkable. No aortic aneurysm. No aortic atherosclerotic calcification or mural plaque present. BOWEL: There is a large amount of fluid in the stomach. Fluid-filled loops of small bowel are seen throughout the abdomen. There is mild mural thickening. Findings suspicious for gastroenteritis. There is a right inguinal hernia the contains a loop of small bowel. There is no associated obstruction The hernia is best seen on coronal image 36 where it measures 4 x 8.6 cm. APPENDIX: Normal appendix. PERITONEUM: Unremarkable. No free fluid. No free air. LYMPH NODES: Unremarkable. No enlarged lymph nodes. BLADDER: Unremarkable. REPRODUCTIVE: Unremarkable. BONES: No acute fracture. OTHER FINDINGS: The report concurs with the preliminary [facility] report IMPRESSION: There is a large amount of fluid in the stomach. Fluid-filled loops of small bowel are seen throughout the abdomen. There is mild mural thickening. Findings suspicious for gastroenteritis. There is a right inguinal hernia the contains a loop of small bowel. There is no associated obstruction
--- NOTE | 2018-04-23 19:50 | CARD ---
APPROVED REPORT Date of service: 04/22/2018 EKG Measurement Heart [id number] <Conclusion> Sinus rhythm with premature ventricular complexes Otherwise normal ECG
== END 2018-04-23 02:36 | disposition home or self-care (01) ==
LOC: ED 21:13
DX: K40.90 Unilateral inguinal hernia, without obstruction or gangrene, not specified as recurrent (principal); I10 Essential (primary) hypertension; N40.0 Benign prostatic hyperplasia without lower urinary tract symptoms; Z95.5 Presence of coronary angioplasty implant and graft; Z87.891 Personal history of nicotine dependence
CPT/HCPCS: 74177; 80053; 82550; 83615; 83735; 84484; 85025; 93005; 99284; Q9967

== ENCOUNTER 2018-04-25 07:54 | Day surgery (SDC) | payer MEDICARE ==
[2018-04-24 12:58] VITALS: BMI 29.3
[2018-04-25 08:34] LABS: EOS % 0.5 % (1.5-5.0); GRAN # 4.09 (1.4-6.5); GRAN % 74.6 % (50.0-68.0); HEMOGLOBIN 13.7 g/dL (14.0-18.0); LYMPH % 18.1 % (22.0-35.0); MEAN CELL VOLUME 95.3 fl (80.0-105.0); MEAN CORPUSCULAR HGB CONC 33.6 g/dl (31.0-37.0); MEAN PLATELET VOLUME 8.7 fl (7.0-11.0); MONO # 0.4 (0.1-0.6); MONO % 6.8 % (1.0-6.0); RBC 4.28 10^6/uL (3.5-6.1); RED CELL DISTRIBUTION WIDTH 12.4 % (11.5-14.5); WHITE BLOOD COUNT 5.5 10^3/uL (4.5-11.0)
[2018-04-25 08:41] VITALS: RESP 18
[2018-04-25 08:43] LABS: PARTIAL THROMBOPLASTIN TIME 38.4 Seconds (25.1-36.5); PROTHROMBIN TIME 11.5 SECONDS (9.4-12.5)
[2018-04-25 09:11] LABS: BLOOD UREA NITROGEN 11 mg/dL (7-21); CALCIUM 9.4 mg/dL (8.4-10.5); GFR NON-AFRICAN AMERICAN > 60
[2018-04-25] MEDS ORDERED: Lidocaine 2% Inj (20ml) ONE (10:35)
[2018-04-25] MEDS ORDERED: Nitroglycerin 50mg in D5W 50 MG/250 ML BOTTLE IV ONE (10:35)
[2018-04-25] MEDS ORDERED: Iohexol 350mgl/ml 50 ML ONE (10:36)
[2018-04-25] MEDS ORDERED: Iodixanol 320 MG/ML 100 ML BOTTLE IV ONE (10:36)
[2018-04-25] MEDS ORDERED: Iodixanol 320 MG/ML 200 ML BOTTLE IV ONE (10:36)
[2018-04-25] MEDS ORDERED: Midazolam 2 MG/2 ML VIAL ONE ×2 (10:49→10:54)
[2018-04-25] MEDS ORDERED: Sodium Chloride 0.9% 1,000 ML IV SCH (11:30)
--- NOTE | 2018-04-25 14:16 | CARDCATH ---
PROCEDURE DATE: 04/25/2018 PROCEDURES: 1. Right and left heart catheterization with coronary aortography, left ventriculogram, and hemodynamic data. HISTORY: The patient is a 77-year-old male with documented pulmonary hypertension on echocardiogram as well as hypercholesterolemia and coronary artery disease documented in the past, who presents for preop clearance. Because of this, cardiac catheterization was performed to evaluate his coronary disease as well as his pulmonary hypertension. The left femoral artery was cannulated with a 6-[place] sheath. The left femoral vein was cannulated with a 7-[place] sheath. There were no complications. I performed moderate sedation which included the presence of an independent trained observer that assisted in monitoring the patient's level of consciousness and physiologic status. After administration of Versed and fentanyl, my intra service time was 30 minutes. The findings on catheterization included hemodynamic data which revealed a right atrial mean pressure of 12 mmHg, RV pressure was 51/13 mmHg, the pulmonary artery pressure was 56/21 with a mean of 36 mmHg, mean pulmonary capillary wedge pressure was 14 mmHg. There was no gradient across the aortic valve. His coronary anatomy revealed a right dominant circulation. The RCA was diffusely diseased with a patent stent placed recently. The left main artery revealed calcification as well as a 20-30% stenosis in its distal portion. The LAD was diffusely diseased with a patent stent in its proximal and ostial position which was patent. The circumflex artery revealed diffuse atherosclerosis with a 60% stenoses in the obtuse marginal branch. LV function was viewed in the MITTAL projection. In the MITTAL projection, the wall motion is within normal limits. Estimated ejection fraction was 60-65%. Angio-Seal was used to close the femoral artery site. Manual compression was used to close the vein site. The patient tolerated the procedure well. In summary, the procedure revealed moderate pulmonary hypertension with pulmonary artery pressures of 56/21 mmHg with a mean of 36 mmHg. His coronary anatomy revealed diffuse calcification with a patent stent in the LAD and RCA as well as a 60% stenoses in the mid obtuse marginal branch vessel. LV function is normal. Given these findings, the patient's continued treatment will be medical therapy. However, given his pulmonary hypertension, the patient's risk for anesthesia would be at increase due to his pulmonary hypertension. His cardiac status is stable, at its maximum at this time. Epi Maloney MD [facility] # [id number]
[2018-04-25 14:18] VITALS: TEMP 97.6; O2SAT 98
[2018-04-25 18:11] VITALS: BP 136/74; PULSE 64
--- NOTE | 2018-04-25 20:26 | CARD ---
APPROVED REPORT Date of service: 04/25/2018 EKG Measurement Heart [id number] <Conclusion> Normal sinus rhythm Normal ECG
== END 2018-04-25 18:00 | disposition home or self-care (01) ==
LOC: CATH 07:54
PROVIDERS: ATTEND Internal Medicine Cardiovascular Disease
DX: I25.10 Atherosclerotic heart disease of native coronary artery without angina pectoris (principal); I27.20 Pulmonary hypertension, unspecified; E78.00 Pure hypercholesterolemia, unspecified
CPT/HCPCS: 36415; 80048; 85025; 85610; 85730; 86850; 86900; 93005; 93460; 99152; C1760; C1769; C1894; C2629; J1644; J2250; J3010; J7030; Q9966